=== PATIENT | female | born 1955 | race Caucasian/White ===

== ENCOUNTER 2020-08-27 08:43 | Emergency (ER) | payer OTHER, MEDICAID, SELFPAY ==
[2020-08-27 08:50] VITALS: BP 179/102; PULSE 95; RESP 16; TEMP 36.2; O2SAT 98
--- NOTE | 2020-08-27 09:32 | ED.LOWEXIN ---
HPI - Extremity Injury (Lower) General Chief Complaint: Extremity Injury, Lower Stated Complaint: right leg swollen and hard to walk Time Seen by Provider: 08/27/20 09:03 Source: patient Mode of arrival: Ambulatory Limitations: no limitations History of Present Illness HPI Narrative: This is a 64-year-old female who comes to the emergency department with complaint of right knee pain. Patient states that she developed swelling in the last 24 hours of the right and kind of upper thigh region. She has noticed some warmth but no erythema or other skin changes. She does not recall any specific trauma or injury. She has not had similar symptoms in the past. She does have an abscess developed on her right calf that has been slowly healing. Patient denies any numbness, tingling or weakness. She has increased pain with movement but is able to ambulate although it is uncomfortable. Patient denies any swelling of her lower leg. She has not appreciated any erythema, cyanosis or pallor. She has been afebrile. She denies chest pain or shortness of breath, no nausea, no vomiting, no new GI or urinary symptoms. Patient denies any regular daily medications. She has had multiple orthopedic surgeries in the past as well as a uterine ablation. She has never had any interventions on her lower extremity. 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 She states she has not injected into that extremity. Related Data Previous Rx's Medication Instructions Recorded clindamycin HCl 300 mg PO Q6H 10 Days #40 cap 08/27/20 clindamycin HCl 300 mg PO Q6H 10 Days #40 cap 08/27/20 Allergies Allergy/AdvReac Type Severity Reaction Status Date / Time Penicillins [PENICILLINS] Allergy Unknown HIVES Unverified 08/20/17 12:36 Review of Systems Review of Systems ROS Unobtainable: All systems reviewed & are unremarkable except as noted in HPI and below Patient History Social History Smoking Status: Never smoker Smoking Status: Never smoker Substance Use Type: does not use Exam Narrative Exam Narrative: GENERAL: Alert and oriented x three, thin female in mild distress. Patient is able to ambulate with mild discomfort. HEENT: Head normocephalic, atraumatic, EOMI, pupils reactive, face symmetric, moist mucous membranes NECK: Supple, full range of motion CARDIOVASCULAR: Regular rate and rhythm without murmurs, rubs or gallops. RESPIRATORY: Breath sounds equal bilaterally, no wheezes rales or rhonchi. ABDOMEN: Soft, nontender. Normoactive bowel sounds all 4 quadrants. No guarding or rebound, rigidity, no mass EXTREMITIES: Normal range of motion, no clubbing. Patient has some mild swelling of the right knee and superiorly to the patella, there is no erythema, pallor or cyanosis. There is some very mild warmth in comparison to the left. Patient does not have any discrete bony tenderness that I can appreciate. She has normal sensation throughout. She is nontender in calf with no swelling appreciated in the calf or foot. Neurovascularly intact. NEUROLOGICAL: Cranial nerves II through XII grossly intact. Moving all extremities SKIN: Warm, dry, no petechiae, no rashes or lesions. Initial Vital Signs Initial Vital Signs: Vital Signs Temperature 97.2 F L 08/27/20 08:50 Pulse Rate 95 H 08/27/20 08:50 Respiratory Rate 16 08/27/20 08:50 Blood Pressure 179/102 H 08/27/20 08:50 Pulse Oximetry 98 08/27/20 08:50 Course Orders Ordered: ED Orders 08/27/20 09:41 US periph venous low extrem rt Stat XR knee RT 3V Stat 08/27/20 10:20 Basic Metabolic Panel Stat C-Reactive Protein Quant Stat Complete Blood Count AUTO DIFF Stat Erythrocyte Sedimentation Rate Stat Procalcitonin Stat Uric Acid Stat 08/27/20 10:30 Blood Culture Stat Discontinued Medications Ketorolac Tromethamine (Ketorolac 60 Mg/2 Ml Vial) 15 mg IV NOW ONE Stop: 08/27/20 09:43 Last Admin: 08/27/20 10:10 Dose: 15 mg Documented by: FELIX Lidocaine/Sodium Bicarbonate (Lido 1%/Sod Bicarb 8.4% (10ml) 10 Ml Syringe) 10 ml INJ NOW ONE Stop: 08/27/20 12:41 Last Admin: 08/27/20 12:50 Dose: 10 ml Documented by: FELIX Reevaluation(s) Reevaluation #2: Discussed with patient initially as she was willing to allow for aspiration of the knee but has become increasingly anxious and at this point is very politely refusing to allow aspiration or incision and drainage. 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 Patient and I discussed that with her various areas of infection on her lower extremities with no clear injection in that location she is potential risk for this. Blood cultures are pending. She does not appear septic overall at this time. Patient defers any aspiration or clean out of the knee but is willing to start some oral antibiotics I was very that this is unlikely to resolve her situation and may slow the course but will not reverse or stop the infection. Time: 13:07 Consultations Consultation #1: Dr. Smith, does not recommend arthrocentesis of the knee itself as this could potentially see need the knee with infection. We discussed that aspiration might be the best course of action at this time as it is a deeper abscess. Vital Signs Vital signs: Vital Signs - 8 hr 08/27/20 13:17 Pulse Rate 84 Respiratory Rate 16 Blood Pressure 165/78 H Pulse Oximetry 97 MDM - Extremity Injury (Lower) Lab Data Attestation: I reviewed the patient's lab results. Result diagrams: 08/27/20 10:20 08/27/20 10:20 Labs: Lab Results 08/27/20 08/27/20 08/27/20 Range/Units 10:20 10:20 10:20 WBC 14.9 H (4.5-11.0) X10^3/uL RBC 4.55 (4.0-5.2) X10^6/uL Hgb 13.2 (12.0-16.0) g/dL Hct 40.5 (36-46) % MCV 89.2 (80-100) fL MCH 29.1 (26-34) PG MCHC 32.7 (30-36) % RDW 14.6 (11.6-14.8) % Plt Count 351 (150-400) X10^3/uL Neut % (Auto) 74.8 (50-75) % Lymph % (Auto) 16.3 L (25-40) % [place] % (Auto) 8.3 (3-14) % Eos % (Auto) 0.2 L (2-4) % Baso % (Auto) 0.4 (0-2) % Neut # (Auto) 15517 H (8407-6803) /uL Lymph # (Auto) 2400 (2078-0710) /uL [place] # (Auto) 1200 H (0-900) /uL Eos # (Auto) 0 (0-450) /uL Baso # (Auto) 100 (0-100) /uL ESR 58 H (0-20) MM/HR Sodium 138 (137-145) mmol/L Potassium 4.1 (3.4-5.1) mmol/L Chloride 103 (98-107) mmol/L Carbon Dioxide 30 (22-32) mmol/L BUN 21 H (7-17) mg/dL Creatinine 0.66 (0.52-1.04) mg/dL Estimated GFR > 60.0 (>60) mL/min BUN/Creatinine Ratio 31.8 H (6-22) Glucose 131 H (80-110) mg/dL Uric Acid 3.9 (2.5-6.2) mg/dL Calcium 9.6 (8.4-10.2) mg/dL C-Reactive Protein 7.7 H (<1.0) mg/dL Procalcitonin 0.07 (<0.5) ng/mL Imaging Data Extremity x-ray #1: Radiologist's Impression: [address] [id number] ReportSigned Patient: Maggie Salas FMR#: [id number]: 7Acct:[id number]/Sex: 64 / FDate of Service: 08/27/20Loc: EDAccession Number: [id number] Procedure: XR knee RT 3V Ordering Provider: Siena Velarde D.O. PROCEDURE: XR KNEE RT 3V INDICATIONS: leg/knee swelling TECHNIQUE: 3 views of the knee were acquired. COMPARISON: None. FINDINGS: Bones: No fractures or dislocations. No suspicious bony lesions. Soft tissues: Moderate to large joint effusion. IMPRESSION: Moderate to large joint effusion without evidence of an acute osseous abnormality. Dictated by: Napoleon Bundy D.O. on 08/27/2020 at 9:06 Approved by: Napoleon Bundy D.O. on 08/27/2020 at 9:14 US - DVT: Radiologist's Impression: [address] [id number] ReportSigned Patient: Maggie Salas FMR#: [id number]: 7Acct:[id number]/Sex: 64 / FDate of Service: 08/27/20Loc: EDAccession Number: [id number] Procedure: XR knee RT 3V Ordering Provider: Siena Velarde D.O. PROCEDURE: XR KNEE RT 3V INDICATIONS: leg/knee swelling TECHNIQUE: 3 views of the knee were acquired. COMPARISON: None. FINDINGS: Bones: No fractures or dislocations. No suspicious bony lesions. Soft tissues: Moderate to large joint effusion. IMPRESSION: Moderate to large joint effusion without evidence of an acute osseous abnormality. Dictated by: Napoleon Bundy D.O. on 08/27/2020 at 9:06 Approved by: Napoleon Bundy D.O. on 08/27/2020 at 9:14 MDM Narrative Medical decision making narrative: This is a 64-year-old female who comes to the emergency department with complaint of right knee leg swelling. Patient has swelling just above her right a little bit over the joint. X-ray shows a joint effusion but ultrasound for DVT was ordered as well. No DVTs noted but she has a 4 by approximately 2 cm fluid collection above the knee in the soft tissue that suspicious for abscess. Patient has a remote history of endocarditis which was treated. She has had some abscess on her other extremity and she continues to use injectable IV drugs. Patient labs are suggestive of infection. This was reviewed with ortho who did not recommend aspiration of the joint itself. Patient I discussed aspirating or incision and drainage of the site. Patient was quite reluctant and ultimately decided to not allow me to do so. We did discuss we can give her oral antibiotics but this is unlikely to fully treat her and she will likely continue to worsen and her risk for osteomyelitis which she has had a past in her clavicle or a septic joint is quite high. Blood cultures are pending. Patient is aware this. Prescription was sent to the pharmacy which patient will start and she was encouraged to return at any time for repeat evaluation and treatment. Discharge Plan Departure Patient Disposition: Left Against Medical Advice Clinical Impression: Joint effusion of knee, Abscess of left leg Activity Restrictions/Additional Instructions: You have a 4cm fluid collection next to your knee that should be drained. As you have selected not to do so here today please return at any time for repeat evaluation and drainage of the abscess or fluid collection next to your knee. You are at high risk of developing an infection within the joint itself and for osteomyelitis Blood cultures are pending, if these are positive you do need to be re-evaluated as there is a high likelihood that you could have infection in the valves of your heart like you did in the past. Take antibiotics until they are completely gone. This may improve your symptoms for a time but is very unlikely to cause the abscess to go away. You may take Tylenol and/or ibuprofen for pain. Use warm compresses to the affected area 4-6 times daily for 20 minutes at a time. Please return for fevers, increasing redness, swelling, pain, new numbness, tingling or other new or concerning symptoms. Prescriptions: New clindamycin HCl 300 mg capsule 300 mg PO Q6H 10 Days Qty: 40 RF: 0 clindamycin HCl 300 mg capsule 300 mg PO Q6H 10 Days Qty: 40 RF: 0 Stand Alone Forms: Against Medical Advice
--- NOTE | 2020-08-27 09:41 | DI.RAD.S_ITS ---
PROCEDURE: XR KNEE RT 3V INDICATIONS: leg/knee swelling TECHNIQUE: 3 views of the knee were acquired. COMPARISON: None. FINDINGS: Bones: No fractures or dislocations. No suspicious bony lesions. Soft tissues: Moderate to large joint effusion. IMPRESSION: Moderate to large joint effusion without evidence of an acute osseous abnormality. Dictated by: Napoleon Bundy D.O. on 08/27/2020 at 9:06 Approved by: Napoleon Bundy D.O. on 08/27/2020 at 9:14
--- NOTE | 2020-08-27 09:41 | DI.US.S_ITS ---
PROCEDURE: US PERIPH VENOUS LOW EXTREM RT INDICATIONS: RIGHT THIGH/KNEE SWELLING/WARMTH TECHNIQUE: Real-time imaging, as well as color and pulse Doppler interrogation, were performed of the lower extremity deep veins from the inguinal ligament to the popliteal fossa. COMPARISON: None. FINDINGS: The common femoral, femoral and popliteal veins are normally compressible, and free of intraluminal thrombus. Color and pulse Doppler demonstrate normal phasic intraluminal flow. There is normal augmentation response to distal compression maneuver. Within the right popliteal fossa is a anechoic fluid collection measuring 2.4 x 3.7 x 0.9 centimeters. Within the right anterior aspect of the knee there is a cystic fluid collection measuring 4.4 x 8.3 x 1.8 centimeters. There is mild increased vascularity of the adjacent soft tissues. IMPRESSION: No evidence of right lower extremity deep venous thrombosis. Small fluid collection within the popliteal fossa. This most commonly represents a Rodriguez's cyst. Fluid collection within the right anterior knee measuring 4.4 x 0.3 x 1.8 centimeters with slightly increased vascularity of the adjacent soft tissues. This is nonspecific in etiology. Recommend correlation for signs of infection at this may be an abscess formation in the correct clinical setting. Dictated by: on 08/27/2020 at 10:15 Approved by: on 08/27/2020 at 10:19
[2020-08-27] MEDS: KETOROLAC 60 MG/2 ML VIAL 15 MG IV (10:10)
--- NOTE | 2020-08-27 10:11 | PC.NURSE ---
IV attempt unsuccessful x 2/ Lab called for draw
--- NOTE | 2020-08-27 10:12 | PC.NURSE ---
pt states Rt knee swelling and pain, appears mildly swollen. H/o IVDU
[2020-08-27 10:46] LABS: Add Manual Diff / Slide Review NO; Basophils Absolute Auto 100 /uL (0-100); Basophils Percent Auto 0.4 % (0-2); Eosinophils Absolute Auto 0 /uL (0-450); Eosinophils Percent Auto 0.2 % (2-4); Hematocrit 40.5 % (36-46); Hemoglobin 13.2 g/dL (12.0-16.0); Lymphocytes Absolute Auto 2400 /uL (1100-4500); Lymphocytes Percent Auto 16.3 % (25-40); Mean Corpuscular HGB Conc 32.7 % (30-36); Mean Corpuscular Hemoglobin 29.1 PG (26-34); Mean Corpuscular Volume 89.2 fL (80-100); Monocytes Absolute Auto 1200 /uL (0-900); Monocytes Percent Auto 8.3 % (3-14); Neutrophils Absolute Auto 11200 /uL (1500-7000); Neutrophils Percent Auto 74.8 % (50-75); Platelet Count 351 X10^3/uL (150-400); Red Blood Cell Count 4.55 X10^6/uL (4.0-5.2); Red Cell Distribution Width 14.6 % (11.6-14.8); White Blood Cell Count 14.9 X10^3/uL (4.5-11.0)
[2020-08-27 10:56] LABS: Uric Acid 3.9 mg/dL (2.5-6.2)
[2020-08-27 10:58] LABS: BUN Creatinine Ratio 31.8 (6-22); Blood Urea Nitrogen 21 mg/dL (7-17); C-Reactive Protein Quant 7.7 mg/dL (<1.0); Calcium 9.6 mg/dL (8.4-10.2); Carbon Dioxide 30 mmol/L (22-32); Chloride 103 mmol/L (98-107); Estimated Glomerular Filt Rate > 60.0 mL/min (>60); Glucose 131 mg/dL (80-110); HEMOLYSIS 24 (0-50); Potassium 4.1 mmol/L (3.4-5.1); Sodium 138 mmol/L (137-145)
[2020-08-27 11:12] LABS: Erythrocyte Sedimentation Rate 58 MM/HR (0-20); Procalcitonin 0.07 ng/mL (<0.5)
[2020-08-27] MEDS: LIDO 1%/SOD BICARB 8.4% (10ML) 10 ML SYRINGE INJ (12:50)
--- NOTE | 2020-08-27 13:02 | PC.NURSE ---
Dr Velarde at bedside with U/S for drainage of R knee effusion. At first when consent given for procedure pt was agreeable and has since changed her mind is refusing procedure.
[2020-08-27 13:17] VITALS: BP 165/78; PULSE 84; RESP 16; O2SAT 97
== END 2020-08-27 13:17 | disposition left against medical advice (07) ==
PROVIDERS: Emergency Provider Emergency Medicine
DX: L02.416 Cutaneous abscess of left lower limb (principal); M25.461 Effusion, right knee
CPT/HCPCS: 36415; 73562; 80048; 84145; 84550; 85025; 85651; 86140; 87040; 93971; 96374; 99284; J1885

== ENCOUNTER 2021-05-16 11:57 | Emergency (ER) | payer OTHER, MEDICAID, SELFPAY ==
[2021-05-16 12:36] VITALS: BP 193/94; PULSE 77; RESP 17; TEMP 36.6; O2SAT 95; BMI 19.5
[2021-05-16 13:33] LABS: COVID19 -Nasal RAPID POSITIVE (Negative)
--- NOTE | 2021-05-16 13:51 | ED_ITS ---
HPI - URI/Sore Throat <RYAN Marie - Last Filed: 05/16/21 20:19> General Chief Complaint: Upper Respiratory Symptoms Stated Complaint: Congestion, SOB, cough- exposure Time Seen by Provider: 05/16/21 13:38 Source: patient Mode of arrival: Ambulatory History of Present Illness HPI Narrative: [age] year old female smoker, unvaccinated for COVID who presents to the emergency department with cough, congestion, loss of appetite, and concern for COVID illness. Patient tested positive while wait in the waiting room and is requesting treatment. Patient denies nausea vomiting, she does endorse loss of appetite but denies any shortness of breath, wheezing, dizziness, chest pain, vomiting or diarrhea. Patient denies having a primary care provider, she denies taking any medications. Patient reports that she has tried [id number] agents but does not express which ones for her symptoms. Patient is frustrated about waiting in the waiting room, requesting a private place. Duration: other (4 days) Description of mucous: clear Related Data Allergies Allergy/AdvReac Type Severity Reaction Status Date / Time Penicillins [PENICILLINS] Allergy Unknown HIVES Unverified 08/20/17 12:36 Review of Systems <RYAN Marie - Last Filed: 05/16/21 20:19> Review of Systems Narrative: General: denies fever, chills Head/Neck: denies headache, neck pain Eyes: denies visual changes, eye pain Cardio: denies chest pain, palpitations Respiratory: denies shortness of breath, endorses cough, congestion, still smoking GI: denies abdominal pain, nausea, vomiting, or diarrhea, endorses loss of appetite : denies dysuria, hematuria MSK: denies joint pain, muscle weakness Skin: denies rash, itching Neuro: denies numbness, tingling Patient History <RYAN Marie - Last Filed: 05/16/21 20:19> Social History Smoking Status: Current some day smoker Smoking Status: Current some day smoker Substance Use Type: does not use Exam <RYAN Marie - Last Filed: 05/16/21 20:19> Narrative Exam Narrative: Independently reviewed vitals signs and nursing notes. General: Awake, alert, nontoxic, no cardiorespiratory distress Head/Neck: Atraumatic, neck full range of motion Eyes: EOMI, conjunctiva normal Nose: nares patent, no rhinorrhea Mouth/Throat: moist mucus membranes, posterior pharynx normal, no oral lesions Cardio: Regular rate and rhythm, no peripheral edema Respiratory: respirations unlabored without wheezing, stridor, or rales. No retractions. GI: Abdomen soft, nontender MSK: Moves all extremities, neurovascularly intact Skin: Normal capillary refill, no rash Neuro: Normal speech and cognition, normal gait Initial Vital Signs Initial Vital Signs: Vital Signs Temperature 97.9 F 05/16/21 12:36 Pulse Rate 77 05/16/21 12:36 Respiratory Rate 17 05/16/21 12:36 Blood Pressure 193/94 H 05/16/21 12:36 Pulse Oximetry 95 05/16/21 12:36 <Sterling Valencia DO - Last Filed: 05/24/21 04:44> Initial Vital Signs Initial Vital Signs: Vital Signs Temperature 97.9 F 05/16/21 12:36 Pulse Rate 77 05/16/21 12:36 Respiratory Rate 17 05/16/21 12:36 Blood Pressure 193/94 H 05/16/21 12:36 Pulse Oximetry 95 05/16/21 12:36 Course <RYAN Marie - Last Filed: 05/16/21 20:19> Orders Ordered: ED Orders 05/16/21 12:41 COVID19 -Nasal swab/Pre-Proc Stat Vital Signs Vital signs: Vital Signs - 8 hr 05/16/21 12:36 05/16/21 15:15 Temperature 97.9 F Pulse Rate 77 88 Respiratory Rate 17 17 Blood Pressure 193/94 H 193/89 H Pulse Oximetry 95 98 <DO Naima Kent Last Filed: 05/24/21 04:44> Orders Ordered: ED Orders 05/16/21 12:41 COVID19 -Nasal swab/Pre-Proc Stat Vital Signs Vital signs: Vital Signs - 8 hr 05/16/21 12:36 05/16/21 15:15 Temperature 97.9 F Pulse Rate 77 88 Respiratory Rate 17 17 Blood Pressure 193/94 H 193/89 H Pulse Oximetry 95 98 MDM - URI/Sore Throat <RYAN Marie - Last Filed: 05/16/21 20:19> Lab Data Labs: Lab Results 05/16/21 Range/Units 12:41 SARS-CoV-2 (PCR) Positive H (Negative) MDM Narrative Medical decision making narrative: 65-year-old female presents to the emergency department requesting COVID testing, she is unvaccinated and a current everyday smoker. Patient tested positive for COVID, she requested treatment for her COVID and it was discussed with her that there is no treatment for COVID. Dr. Theodore was requested to see the patient because she did not want to speak with me any longer. He saw this patient and discussed these things with her as well, she was discharged with understanding, given cautious return precautions if she is getting worse, and told to treat her symptoms with ibuprofen or Tylenol as needed, and to stay hydrated. Patient is appropriate and amenable to discharge home. Vital signs are stable on repeat examination is unremarkable. Patient has been informed of results. Patient has been given strict return to ER precautions for any new or worsening symptoms. Patient understands to follow up closely with outpatient providers as instructed. Patient understands plan and agrees to discharge home. All questions and concerns answered at this time. <Sterling Valencia DO - Last Filed: 05/24/21 04:44> Lab Data Labs: Lab Results 05/16/21 Range/Units 12:41 SARS-CoV-2 (PCR) Positive H (Negative) Discharge Plan Departure Patient Disposition: Home Clinical Impression: COVID-19 Instructions: DI for COVID-19 (Suspected or Confirmed ), Can COVID-19 be prevented? Activity Restrictions/Additional Instructions: *You have been diagnosed with COVID-19. Because today is day 4 of your symptoms, according to the latest CDC guidelines if you do not have a fever tomorrow you may come off quarantine but you are required to wear a mask for at least 5 days or for as long as you still have symptoms. Please go home and quarantine, Flonase may help some of your symptoms, please do not smoke, take ibuprofen or Tylenol as needed for fever, or pain. Please remember to stay hydrated, if you have difficulty breathing, wheezing, or need oxygen therapy please return to the emergency department. Today your oxygen was 95%, this is okay, her heart rate was also normal, your blood pressure was elevated which I think is due to a number of reasons. Please obtain a primary care provider so that you may follow-up with somebody about this and your ongoing health concerns. Please educate yourself on the CDC website about what treatments are available for COVID. Wishing you the best. *What to do: *Please continue to take your regular medications as directed. [ ] New medication prescriptions sent to your pharmacy: [ ] [ ] New medication written as a paper prescription [ x] No new medications given *Please follow up with your primary care provider in 2-3 days, call for an appointment. Let them know you were seen in the Emergency Department and that we ask that you be seen in follow up. We will electronically transmit a record of today's note if your PCP is in our system *If you do not have a primary care provider please contact the [facility] Resource line at [phone]. They will ask some questions about your medical history and help get you set up with a doctor in the community. *Return to Emergency Department if you should have any new, worsening or conc erning symptoms, such as [fever greater than 101F, chills, worsening pain, persistent vomiting or other bothersome symptoms] <Sterling Valencia DO - Last Filed: 05/24/21 04:44> Cosign ED Attending Percyature Attestation: I was immediately available in the department for consultation. This document ation has been reviewed and I agree with assessment and plan. Supervised by Sterling Valencia DO
--- NOTE | 2021-05-16 15:09 | PC.NURSE ---
Pt seen and discharged by ALANA Jo. Pt requesting to see doctor to see her. Pt to room 7. Continues to have easy work of breathing. Very upset that there is no cure for covid and that she will continue to feel poorly. Dr. Valencia reviewed return precautions.
--- NOTE | 2021-05-16 15:12 | PC.NURSE ---
In triage the patient stated she doesn't take bp meds, doesn't want to. pt now states she has never been given bp meds. Dr solis is at bedside currently.
[2021-05-16 15:15] VITALS: BP 193/89; PULSE 88; RESP 17; O2SAT 98
== END 2021-05-16 15:20 | disposition home or self-care (01) ==
PROVIDERS: Emergency Medicine; Emergency Provider Nurse Practitioner Critical Care Medicine
DX: U07.1 COVID-19 (principal); F17.200 Nicotine dependence, unspecified, uncomplicated
CPT/HCPCS: 87635; 99281; 99282; C9803

== ENCOUNTER 2022-10-21 15:55 | Emergency (ER) | payer MEDICARE, SELFPAY ==
[2022-10-21 16:14] VITALS: BP 166/82; PULSE 74; RESP 16; TEMP 36.9; O2SAT 96; BMI 22.4
--- NOTE | 2022-10-21 20:07 | ED_ITS ---
HPI - Recheck/Abnormal Lab/Rx General Chief Complaint: Recheck/Abnormal Lab/Rx Stated Complaint: L sided weakness, thinks stroke Time Seen by Provider: 10/21/22 19:57 Source: patient Mode of arrival: Ambulatory History of Present Illness HPI narrative: Patient is a 67-year-old female who was sent to the emergency department for evaluation of a potential stroke. She states that 2 weeks ago she had an episode where she felt like her left leg was weak. It has been persistent since then. She would no other associated symptoms. Since that time she has used a cane because of a foot drop on that side. She states that she saw a doctor at her methadone clinic who recently started her on blood pressure medicines. That has been within the past 2 weeks and after the left leg weakness. She talked with that doctor about the weakness and he advised that she come to the emergency department for further evaluation but she did not come because she did not want to be evaluated. She was convinced to come today by other friends. She states that she currently is not having any symptoms except for the footdrop in the left leg. At the time of the event 2 weeks ago she was not having chest pain or shortness of breath or headache or any upper extremity discomfort. She states she is never had a stroke in the past. Related Data Allergies Allergy/AdvReac Type Severity Reaction Status Date / Time Penicillins [PENICILLINS] Allergy Unknown HIVES Verified 10/21/22 16:14 Review of Systems Review of Systems ROS Unobtainable: All systems reviewed & are unremarkable except as noted in HPI and below Patient History Social History Smoking Status: Current some day smoker Smoking Status: Current some day smoker Substance Use Type: does not use Exam Initial Vital Signs Initial Vital Signs: Vital Signs Temperature 98.4 F 10/21/22 16:14 Pulse Rate 74 10/21/22 16:14 Respiratory Rate 16 10/21/22 16:14 Blood Pressure 166/82 H 10/21/22 16:14 Pulse Oximetry 96 10/21/22 16:14 Oxygen Delivery Method Room Air 10/21/22 16:14 Const General: cooperative, comfortable, well groomed and No ill appearing HENMT Head: normal to inspection and normocephalic Face and sinus: normal facial exam Mouth: oral mucosae normal Resp Effort & Inspection: normal respiratory effort Auscultation: clear to auscultation bilaterally Cardio Rate: regular rate Rhythm: regular rhythm GI Inspection: normal to inspection and non-distended Palpation: soft and No tender Skin General: no rashes or lesions noted Lesions: no lesions Neuro General: patient alert, patient awake, patient oriented x3 and moves all extremities Cranial Nerves: CN's II-XI intact bilaterally Cognition: normal cognition Speech: speech normal Gait: gait assisted Method: foot drop Sensory Exam: no sensory deficits noted Coordination: [id number]-wc-[id number] test normal Extrem General: normal to inspection and capillary refill normal Course Orders Ordered: ED Orders 10/21/22 20:07 CT angio head and neck Stat 10/21/22 20:08 CT head/brain wo con Stat EKG-12 Lead Stat 10/21/22 20:54 Complete Blood Count AUTO DIFF Stat Comprehensive Metabolic Panel Stat Lipase Stat Troponin & CK Cardiac Panel Stat Vital Signs Vital signs: Vital Signs - 8 hr 10/21/22 22:44 Pulse Rate 69 Respiratory Rate 19 Blood Pressure 193/96 H Pulse Oximetry 98 Oxygen Delivery Method Room Air MDM - Recheck/Abnormal Lab/Rx Lab Data Attestation: I reviewed the patient's lab results. 10/21/22 20:54 10/21/22 20:54 Labs: Lab Results 10/21/22 10/21/22 Range/Units 20:54 20:54 WBC 8.3 (4.5-11.0) X10^3/uL RBC 4.36 (4.0-5.2) X10^6/uL Hgb 12.8 (12.0-16.0) g/dL Hct 38.4 (36-46) % MCV 88.1 (80-100) fL MCH 29.4 (26-34) PG MCHC 33.3 (30-36) % RDW 14.7 (11.6-14.8) % Plt Count 316 (150-400) X10^3/uL Neut % (Auto) 49.8 L (50-75) % Lymph % (Auto) 37.0 (25-40) % [place] % (Auto) 11.1 (3-14) % Eos % (Auto) 1.5 L (2-4) % Baso % (Auto) 0.6 (0-2) % Neut # (Auto) 4100 (1661-1887) /uL Lymph # (Auto) 3100 (7525-0303) /uL [place] # (Auto) 900 (0-900) /uL Eos # (Auto) 100 (0-450) /uL Baso # (Auto) 100 (0-100) /uL Sodium 140 (137-145) mmol/L Potassium 4.1 (3.4-5.1) mmol/L Chloride 101 (98-107) mmol/L Carbon Dioxide 32 (22-32) mmol/L BUN 20 H (7-17) mg/dL Creatinine 1.04 (0.52-1.04) mg/dL Estimated GFR 59 L (>60) mL/min BUN/Creatinine Ratio 19.2 (6-22) Glucose 83 (80-110) mg/dL Calcium 9.2 (8.4-10.2) mg/dL Total Bilirubin 0.5 (0.2-1.3) mg/dL AST 30 (14-36) IU/L ALT 18 (<35) IU/L Alkaline Phosphatase 100 (38-126) U/L Total Creatine Kinase 144 H (30-135) U/L CK-MB (CK-2) TNP CK-MB (CK-2) Rel Index TNP Troponin I < 0.012 (0.01-0.034) ng/mL Total Protein 8.5 H (6.3-8.2) g/dL Albumin 4.4 (3.5-5.0) g/dL Globulin 4.1 (1.7-4.1) g/dL Albumin/Globulin Ratio 1.1 (1.0-2.8) Lipase 70 (23-300) U/L Imaging Data CT scan - head: Radiologist's Impression: PROCEDURE:? CT HEAD/BRAIN WO CON ? INDICATIONS:? L foot drop ? TECHNIQUE:? Noncontrast 4.5 mm thick angled axial sections acquired from the foramen magnum to the vertex, with coronal and sagittal reformats.? For radiation dose reduction, the following was used:? automated exposure control, adjustment of mA and/or kV according to patient size.? ? COMPARISON:? None. ? FINDINGS:? Image quality:? Excellent.? ? CSF spaces:? Basal cisterns are patent.? No extra-axial fluid collections.? There is moderate cerebral volume loss, with resultant ventricular and sulcal prominence.? ? Brain:? No intracranial hemorrhage, mass, or mass effect.? There are subcortical, periventricular and deep white matter hypodensities consistent with moderate chronic small vessel ischemic changes.? There is a small region of carter-white matter junction effacement in the right posterior frontal lobe suggestive of encephalomalacia related to a prior infarct.? There is intracranial internal carotid artery atherosclerosis.? ? Skull and face:? Calvarium and visualized facial bones are intact, without suspicious lesions.? ? Sinuses:? Visualized sinuses and mastoids are clear.? ? IMPRESSION:? ? 1. No definite acute intracranial abnormality. ? 2. 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 Consider further evaluation with MRI if clinical concern persists.? CTA - brain/neck: Radiologist's Impression: PROCEDURE:? CT ANGIO HEAD AND NECK ? INDICATIONS:? L foot drop ? TECHNIQUE:? After the administration of intravenous contrast, 1 mm thick sections acquired from the aortic arch through the [place] of [place].? Post-contrast 4.5 mm thick sections then re-acquired from the foramen magnum to the vertex.? 3-dimensional przlzvz-qvgpriipt-izknuiyfup (MIP) and/or volume rendering reformats were acquired of the central intracranial vasculature and neck separately. For radiation dose reduction, the following was used:? automated exposure control, adjustment of mA and/or kV according to patient size.? ? COMPARISON:? [facility], CT, CT HEAD/BRAIN WO CON, 10/21/2022, 21:42. ? FINDINGS:? Image quality:? Excellent.? ? BRAIN:? CSF spaces:? Basal cisterns are patent.? No extra-axial fluid collections.? Ventricles are normal in size and shape.? ? Brain:? No intracranial hemorrhage, mass, or mass effect.? Carter-white matter interface appears preserved.? No abnormal intracranial enhancement.? ? Skull and face:? Calvarium and facial bones appear intact, without suspicious lesions.? Orbits appear normal.? ? Sinuses:? Sinuses and mastoids are clear.? ? HEAD CT ANGIOGRAPHY:? Anterior circulation:? Intracranial internal carotid arteries are normal in size and appear patent bilaterally.? There is mild atherosclerotic calcification along the cavernous segments of the internal carotid arteries.? The paired anterior cerebral arteries appear patent bilaterally.? The anterior communicating artery also appears patent. The middle cerebral arteries appear patent bilaterally.? No high-grade stenosis, occlusion, or filling defects.? No cerebral aneurysms identified. ? Posterior circulation:? Visualized portions of the vertebral arteries appear patent, and join to form a patent basilar artery.? There is a right dominant vertebrobasilar system.? The posterior cerebral arteries appears patent bilaterally.? No high-grade stenosis, occlusion, or filling defects.? No cerebral aneurysms identified. ? NECK CT ANGIOGRAPHY:? Carotid system:? The great vessels demonstrate a conventional anatomy as they arise from the aortic arch.? The origins of the common carotid arteries appear patent.? The common carotid arteries demonstrate normal caliber and courses.? The bifurcation regions are both widely patent.? The internal carotid arteries demonstrate normal calibers and courses.? ? Posterior circulation:? The origins of the vertebral arteries both appear patent.? There is a right dominant vertebrobasilar system.? The vertebral arteries appear patent and join to form a patent basilar artery. ? Soft tissues:? Visualized neck soft tissues demonstrate heterogeneous enhancement of the thyroid bilaterally without a focal dominant nodule.? The visualized lungs demonstrate moderate to severe centrilobular emphysematous changes. ? Bones:? No suspicious bony lesions.? Visualized cervical spine demonstrates straightening of the cervical lordosis.? There is multilevel degenerative disc disease and facet joint arthropathy.? ? ? IMPRESSION:? ? 1. No high-grade stenosis or occlusion of the central intracranial arteries. ? 2. No high-grade stenosis or occlusion of the head and neck arteries.? ? Any quantitative measurements of stenosis were performed using NASCET criteria.? MDM Narrative Medical decision making narrative: Patient does have a foot drop on her left lower extremity which is requiring her to use a cane. The rest of her neurologic exam is unremarkable. Her labs are unremarkable. Her symptoms started 2 weeks ago. Not a candidate for tPA or interventional. CT scan and CTA of head and neck were ordered however prior to these radiologic studies resulting the patient stated that she would like to be discharged home. I advised the patient that I did not have the results of the scans back. Advised so we potentially could be missing something such as a brain mass, head bleed or potential stroke. Patient expressed understanding of this. She had a GCS of 15. Alert and oriented x3. Not clinically intoxicated and my opinion had capacity make decisions. Her roommate was at bedside for these discussions. Patient stated that she would like to be discharged home and follow-up with her doctor at the methadone clinic. I advised that she contact this provider for follow-up so that they could discuss potential further workup or other medications. She was advised she could return to the emergency department at any point to complete her workup if needed. Discharge Plan Departure Patient Disposition: Left Against Medical Advice Clinical Impression: Foot drop Activity Restrictions/Additional Instructions: Despite not having your workup completed you have opted to leave the emergency department. I recommend that you contact your primary care doctor for a follow- up and feel free to return to the emergency department at any point to continue your evaluation. Stand Alone Forms: Against Medical Advice
--- NOTE | 2022-10-21 20:07 | DI.CT.S_ITS ---
PROCEDURE: CT ANGIO HEAD AND NECK INDICATIONS: L foot drop TECHNIQUE: After the administration of intravenous contrast, 1 mm thick sections acquired from the aortic arch through the [place] of [place]. Post-contrast 4.5 mm thick sections then re-acquired from the foramen magnum to the vertex. 3-dimensional dkyifko-qyadpkypg-vrtmtgcqlj (MIP) and/or volume rendering reformats were acquired of the central intracranial vasculature and neck separately. For radiation dose reduction, the following was used: automated exposure control, adjustment of mA and/or kV according to patient size. COMPARISON: [facility], CT, CT HEAD/BRAIN WO CON, 10/21/2022, 21:42. FINDINGS: Image quality: Excellent. BRAIN: CSF spaces: Basal cisterns are patent. No extra-axial fluid collections. Ventricles are normal in size and shape. Brain: No intracranial hemorrhage, mass, or mass effect. Carter-white matter interface appears preserved. No abnormal intracranial enhancement. Skull and face: Calvarium and facial bones appear intact, without suspicious lesions. Orbits appear normal. Sinuses: Sinuses and mastoids are clear. HEAD CT ANGIOGRAPHY: Anterior circulation: Intracranial internal carotid arteries are normal in size and appear patent bilaterally. There is mild atherosclerotic calcification along the cavernous segments of the internal carotid arteries. The paired anterior cerebral arteries appear patent bilaterally. The anterior communicating artery also appears patent. The middle cerebral arteries appear patent bilaterally. No high-grade stenosis, occlusion, or filling defects. No cerebral aneurysms identified. Posterior circulation: Visualized portions of the vertebral arteries appear patent, and join to form a patent basilar artery. There is a right dominant vertebrobasilar system. The posterior cerebral arteries appears patent bilaterally. No high-grade stenosis, occlusion, or filling defects. No cerebral aneurysms identified. NECK CT ANGIOGRAPHY: Carotid system: The great vessels demonstrate a conventional anatomy as they arise from the aortic arch. The origins of the common carotid arteries appear patent. The common carotid arteries demonstrate normal caliber and courses. The bifurcation regions are both widely patent. The internal carotid arteries demonstrate normal calibers and courses. Posterior circulation: The origins of the vertebral arteries both appear patent. There is a right dominant vertebrobasilar system. The vertebral arteries appear patent and join to form a patent basilar artery. Soft tissues: Visualized neck soft tissues demonstrate heterogeneous enhancement of the thyroid bilaterally without a focal dominant nodule. The visualized lungs demonstrate moderate to severe centrilobular emphysematous changes. Bones: No suspicious bony lesions. Visualized cervical spine demonstrates straightening of the cervical lordosis. There is multilevel degenerative disc disease and facet joint arthropathy. IMPRESSION: 1. No high-grade stenosis or occlusion of the central intracranial arteries. 2. No high-grade stenosis or occlusion of the head and neck arteries. Any quantitative measurements of stenosis were performed using NASCET criteria. Dictated by: Ignacio Mathew M.D. on 10/21/2022 at 23:17 Approved by: Ignacio Mathew M.D. on 10/21/2022 at 23:20
--- NOTE | 2022-10-21 20:08 | DI.CT.S_ITS ---
PROCEDURE: CT HEAD/BRAIN WO CON INDICATIONS: L foot drop TECHNIQUE: Noncontrast 4.5 mm thick angled axial sections acquired from the foramen magnum to the vertex, with coronal and sagittal reformats. For radiation dose reduction, the following was used: automated exposure control, adjustment of mA and/or kV according to patient size. COMPARISON: None. FINDINGS: Image quality: Excellent. CSF spaces: Basal cisterns are patent. No extra-axial fluid collections. There is moderate cerebral volume loss, with resultant ventricular and sulcal prominence. Brain: No intracranial hemorrhage, mass, or mass effect. There are subcortical, periventricular and deep white matter hypodensities consistent with moderate chronic small vessel ischemic changes. There is a small region of [place]-white matter junction effacement in the right posterior frontal lobe suggestive of encephalomalacia related to a prior infarct. There is intracranial internal carotid artery atherosclerosis. Skull and face: Calvarium and visualized facial bones are intact, without suspicious lesions. Sinuses: Visualized sinuses and mastoids are clear. IMPRESSION: 1. No definite acute intracranial abnormality. 2. 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 Consider further evaluation with MRI if clinical concern persists. Dictated by: Ignacio Mathew M.D. on 10/21/2022 at 23:15 Approved by: Ignacio Mathew M.D. on 10/21/2022 at 23:16
[2022-10-21 21:07] LABS: Add Manual Diff / Slide Review NO; Basophils Absolute Auto 100 /uL (0-100); Basophils Percent Auto 0.6 % (0-2); Eosinophils Absolute Auto 100 /uL (0-450); Eosinophils Percent Auto 1.5 % (2-4); Hematocrit 38.4 % (36-46); Hemoglobin 12.8 g/dL (12.0-16.0); Lymphocytes Absolute Auto 3100 /uL (1100-4500); Mean Corpuscular HGB Conc 33.3 % (30-36); Mean Corpuscular Hemoglobin 29.4 PG (26-34); Mean Corpuscular Volume 88.1 fL (80-100); Monocytes Absolute Auto 900 /uL (0-900); Monocytes Percent Auto 11.1 % (3-14); Neutrophils Absolute Auto 4100 /uL (1500-7000); Neutrophils Percent Auto 49.8 % (50-75); Platelet Count 316 X10^3/uL (150-400); Red Blood Cell Count 4.36 X10^6/uL (4.0-5.2); Red Cell Distribution Width 14.7 % (11.6-14.8); White Blood Cell Count 8.3 X10^3/uL (4.5-11.0)
[2022-10-21 21:14] LABS: Alanine Aminotransferase 18 IU/L (<35); Albumin 4.4 g/dL (3.5-5.0); Albumin Globulin Ratio 1.1 (1.0-2.8); Alkaline Phosphatase 100 U/L (38-126); Aspartate Aminotransferase 30 IU/L (14-36); BUN Creatinine Ratio 19.2 (6-22); Bilirubin Total 0.5 mg/dL (0.2-1.3); Blood Urea Nitrogen 20 mg/dL (7-17); Calcium 9.2 mg/dL (8.4-10.2); Carbon Dioxide 32 mmol/L (22-32); Chloride 101 mmol/L (98-107); Creatine Kinase 144 U/L (30-135); Estimated Glomerular Filt Rate 59 mL/min (>60); Globulin 4.1 g/dL (1.7-4.1); Glucose 83 mg/dL (80-110); HEMOLYSIS < 15 (0-50); Lipase 70 U/L (23-300); Potassium 4.1 mmol/L (3.4-5.1); Sodium 140 mmol/L (137-145); Total Protein 8.5 g/dL (6.3-8.2)
[2022-10-21 21:25] LABS: Troponin I < 0.012 ng/mL (0.01-0.034)
[2022-10-21 22:44] VITALS: BP 193/96; PULSE 69; RESP 19; O2SAT 98
== END 2022-10-21 22:48 | disposition left against medical advice (07) ==
PROVIDERS: Emergency Provider Emergency Medicine
DX: M21.372 Foot drop, left foot (principal); R07.9 Chest pain, unspecified
CPT/HCPCS: 36415; 70450; 70496; 70498; 80053; 82550; 83690; 84484; 85025; 93005; 99283; 99284; Q9967

== ENCOUNTER 2022-11-02 13:16 | Inpatient (IN) | payer MEDICARE, SELFPAY ==
[2022-11-02] VITALS (25 sets, daily range): BP systolic 164–220; BP diastolic 85–108; PULSE 67–80; RESP 14–23; TEMP 35.9–36.8; O2SAT 91–99; BMI 21.6
--- NOTE | 2022-11-02 13:33 | DI.RAD.S_ITS ---
PROCEDURE: XR HIP W PEL IF DONE LT 2V INDICATIONS: fall, left hip pain TECHNIQUE: To views of the hip were acquired. COMPARISON: None. FINDINGS: Bones: Left femoral neck fracture with angulation and displacement. No fracture of the pelvic ring is identified. Soft tissues: No suspicious soft tissue calcifications or masses. IMPRESSION: Left femoral neck fracture. Dictated by: Adrai Wharton M.D. on 11/02/2022 at 13:36 Approved by: Adria Wharton M.D. on 11/02/2022 at 13:37
--- NOTE | 2022-11-02 13:33 | DI.RAD.S_ITS ---
PROCEDURE: XR CHEST 1V INDICATIONS: chest pain TECHNIQUE: One view of the chest was acquired. COMPARISON: [facility], , CHEST 1 VIEW, 07/24/2015, 16:15. FINDINGS: Surgical changes and devices: None. Lungs and pleura: Lungs are clear. No pleural effusions or pneumothorax. Mediastinum: Mediastinal contours appear normal. Heart size is normal. Bones and chest wall: No suspicious bony lesions. Overlying soft tissues appear unremarkable. IMPRESSION: No acute cardiopulmonary abnormality. Dictated by: Adria Wharton M.D. on 11/02/2022 at 13:37 Approved by: Adria Wharton M.D. on 11/02/2022 at 13:38
[2022-11-02 13:45] LABS: Add Manual Diff / Slide Review NO; Basophils Absolute Auto 0 /uL (0-100); Basophils Percent Auto 0.3 % (0-2); Eosinophils Absolute Auto 0 /uL (0-450); Eosinophils Percent Auto 0.2 % (2-4); Hematocrit 44.7 % (36-46); Hemoglobin 14.9 g/dL (12.0-16.0); Lymphocytes Absolute Auto 1300 /uL (1100-4500); Lymphocytes Percent Auto 10.7 % (25-40); Mean Corpuscular HGB Conc 33.3 % (30-36); Mean Corpuscular Hemoglobin 29.3 PG (26-34); Monocytes Absolute Auto 700 /uL (0-900); Monocytes Percent Auto 5.7 % (3-14); Neutrophils Absolute Auto 10500 /uL (1500-7000); Neutrophils Percent Auto 83.1 % (50-75); Platelet Count 426 X10^3/uL (150-400); Red Blood Cell Count 5.08 X10^6/uL (4.0-5.2); Red Cell Distribution Width 14.7 % (11.6-14.8); White Blood Cell Count 12.6 X10^3/uL (4.5-11.0)
[2022-11-02 13:48] LABS: Prothrombin Time 11.2 SECONDS (10.1-12.7)
[2022-11-02 13:50] LABS: PTT Partial Thromboplastin Tim 33 SECONDS (26-36)
[2022-11-02 14:00] LABS: Alanine Aminotransferase 30 IU/L (<35); Albumin 4.9 g/dL (3.5-5.0); Alkaline Phosphatase 166 U/L (38-126); Aspartate Aminotransferase 44 IU/L (14-36); BUN Creatinine Ratio 15.5 (6-22); Bilirubin Total 0.5 mg/dL (0.2-1.3); Blood Urea Nitrogen 16 mg/dL (7-17); Carbon Dioxide 29 mmol/L (22-32); Chloride 100 mmol/L (98-107); Creatine Kinase 332 U/L (30-135); Estimated Glomerular Filt Rate 60 mL/min (>60); Globulin 5.1 g/dL (1.7-4.1); Glucose 105 mg/dL (80-110); HEMOLYSIS < 15 (0-50); Lipase 100 U/L (23-300); Magnesium 2.3 mg/dL (1.6-2.3); Potassium 3.9 mmol/L (3.4-5.1); Sodium 139 mmol/L (137-145)
[2022-11-02] MEDS: ONDANSETRON 4 MG/2 ML INJ IV (14:02)
[2022-11-02] MEDS: MORPHINE 4 MG/ML INJ IV ×2 (14:02→15:00)
[2022-11-02 14:09] LABS: NT-proBNP (BNP-Adult 18+) 130 pg/mL (<125)
[2022-11-02 14:12] LABS: Troponin I < 0.012 ng/mL (0.01-0.034)
--- NOTE | 2022-11-02 14:57 | ED_ITS ---
HPI - Dizziness General Chief Complaint: Syncope Stated Complaint: dizzy/fall/hip pain Time Seen by Provider: 11/02/22 14:57 Source: patient and EMS Mode of arrival: EMS History of Present Illness HPI Narrative: This is a 67-year-old female with history of hypertension, on methadone daily for prior substance abuse who presents with ground level fall and left hip pain. Patient states she was in bed her roommate asked her for his help with the task she got up lost her balance and fell onto her left hip. She has pain in the left hip she denies head injury, no neck or back pain, no chest pain or shortness of breath, no nausea, no vomiting, no issues with bowel movements or urination. Patient denies numbness, tingling or weakness. She states this happened about 10 30 this she thought it might pass so she waited to call for assistance. Patient does take methadone 138 mg daily she states she has not had her dose today from [facility] while at, she takes blood pressure medication. No prior strokes or heart attacks. She is had prior neck and arm surgery. Allergic to penicillin. Does use tobacco, no alcohol or illicit. She states her primary care is through [facility] while at clinic. Related Data Home Medications Medication Instructions Recorded Confirmed fluticasone furoate 100 2 inh inhalation DAILY 11/02/22 11/02/22 mcg-vilanterol 25 mcg/dose inhalation powder (Breo Ellipta) lisinopril 10 mg tablet 10 mg PO BEDTIME 11/02/22 11/02/22 methadone 10 mg/mL oral concentrate 130 mg PO DAILY 11/02/22 11/02/22 Allergies Allergy/AdvReac Type Severity Reaction Status Date / Time Penicillins [PENICILLINS] Allergy Unknown HIVES Verified 11/02/22 13:31 Review of Systems Review of Systems ROS Unobtainable: All systems reviewed & are unremarkable except as noted in HPI and below Patient History Medical History Hypertension Methadone maintenance therapy patient Social History Smoking Status: Current every day smoker Smoking Status: Current every day smoker tobacco type: cigarettes alcohol intake frequency: 0-2 drinks per day Substance Use Type: former substance user Exam Narrative Exam Narrative: GEN: Female appearing older than her stated age, alert and oriented x 3, patient appears to be in mild distress. HEENT: Atraumatic, pupils are equal round reactive to light, extraocular movements are intact, nares are clear, there is no conjunctival pallor. Throat is clear without any exudates, erythema, tonsillar enlargement or uvular deviation HEART: Regular rate and rhythm without murmur, clicks, rubs. LUNGS:Lungs clear to auscultation, no wheezes, rales, crackles, chest moves symmetrically ABD:bowel sounds normal, soft, non-tender, no guarding, rebound, rigidity, no masses noted, no hepatosplenomegaly :No CVA tenderness MSCL: Patient has full range of motion upper extremities, no pain in the right lower extremity but patient has pain at the left hip. Any pain with movement of the leg. No obvious deformity but holds leg flexed. She has 2+ pulses bilateral lower extremities. Patient does have some edema bilateral lower extremities equal which he states has been present for some time. NEURO:CN 2-12 intact, sensation normal. SKIN: No rash, no erythema or other skin changes. Initial Vital Signs Initial Vital Signs: Vital Signs Temperature 97.9 F 11/02/22 13:20 Pulse Rate 70 11/02/22 13:20 Respiratory Rate 16 11/02/22 13:20 Blood Pressure 220/108 H 11/02/22 13:20 Pulse Oximetry 99 11/02/22 13:20 Oxygen Delivery Method Room Air 11/02/22 13:20 Course Orders Ordered: ED Orders 11/02/22 13:30 BNP [NT-proBNP (BNP-Adult 18+)] Stat Complete Blood Count AUTO DIFF Stat Comprehensive Metabolic Panel Stat Lipase Stat Magnesium Stat PTT Partial Thromboplastin Benjamin Stat Prothrombin Time INR Stat Troponin & CK Cardiac Panel Stat 11/02/22 13:33 XR chest 1V Stat XR hip w pel if done LT 2V Stat 11/02/22 13:50 EKG-12 Lead Stat 11/02/22 15:13 XR pelvis 1-2V Stat Acetaminophen (Acetaminophen 325 Mg Tablet) 650 mg PO Q6H PRN PRN Reason: Fever/Mild Pain (1-3) Hydromorphone HCl (Hydromorphone 2 Mg Inj) 2 mg IV Q3H PRN PRN Reason: Pain, Severe (7-10) Last Admin: 11/02/22 18:36 Dose: 2 mg Documented By: ISREAL Sodium Chloride (Normal Saline 0.9%) 1,000 mls @ 100 mls/hr IV CONT LA Stop: 11/03/22 04:29 Last Infusion: 11/02/22 18:34 Dose: 100 mls/hr Documented By: Infusion: 11/02/22 17:31 Dose: 0 mls/hr Documented By: Admin: 11/02/22 16:47 Dose: 100 mls/hr Documented By: GAURAV Lisinopril (Lisinopril 10 Mg Tablet) 10 mg PO BEDTIME LA Melatonin (Melatonin 3 Mg Tablet) 6 mg PO BEDTIME PRN PRN Reason: Insomnia Methadone HCl (Methadone 10 Mg Tablet) 130 mg PO DAILY LA Naloxone HCl (Naloxone 0.4 Mg/Ml Vial) 0.2 mg IV Q2MIN PRN PRN Reason: Opiate Reversal Oxycodone HCl (Oxycodone Ir 10 Mg Tablet) 10 mg PO Q3HR PRN PRN Reason: Pain, Severe (7-10) Polyethylene Glycol (Polyethylene Glycol 3350 17 Gm Powd.Pack) 17 gm PO DAILY PRN PRN Reason: Constipation Prochlorperazine (Prochlorperazine 10 Mg/2 Ml Vial) 10 mg IV Q6HR PRN PRN Reason: Nausea Sennosides (Sennosides 8.6 Mg Tablet) 8.6 mg PO BID PRN PRN Reason: Constipation Discontinued Medications Hydromorphone HCl (Hydromorphone 0.5 Mg Inj) 0.5 mg IV Q3H PRN PRN Reason: Pain, Severe (7-10) Morphine Sulfate (Morphine 4 Mg/Ml Inj) 4 mg IV NOW ONE Stop: 11/02/22 13:37 Last Admin: 11/02/22 14:02 Dose: 4 mg Documented By: GAURAV Morphine Sulfate (Morphine 4 Mg/Ml Inj) 4 mg IV NOW ONE Stop: 11/02/22 14:58 Last Admin: 11/02/22 15:00 Dose: 4 mg Documented By: GAURAV Ondansetron HCl (Ondansetron 4 Mg/2 Ml Inj) 4 mg IV NOW ONE Stop: 11/02/22 13:37 Last Admin: 11/02/22 14:02 Dose: 4 mg Documented By: GAURAV Vital Signs Vital signs: Vital Signs - 8 hr 11/02/22 13:20 11/02/22 13:21 11/02/22 13:22 Temperature 97.9 F Pulse Rate 70 67 Respiratory Rate 16 Blood Pressure 220/108 H 220/108 H Pulse Oximetry 99 91 Oxygen Delivery Method Room Air 11/02/22 13:30 11/02/22 14:00 11/02/22 14:30 Temperature Pulse Rate 72 69 69 Respiratory Rate 16 17 Blood Pressure Pulse Oximetry 98 95 94 Oxygen Delivery Method 11/02/22 15:00 11/02/22 15:06 11/02/22 15:06 Temperature Pulse Rate 75 77 Respiratory Rate 21 23 Blood Pressure 210/104 H Pulse Oximetry 92 96 Oxygen Delivery Method 11/02/22 15:30 11/02/22 15:37 11/02/22 15:37 Temperature Pulse Rate 75 73 Respiratory Rate 19 18 Blood Pressure 200/100 H Pulse Oximetry 94 95 Oxygen Delivery Method 11/02/22 15:44 11/02/22 15:44 11/02/22 15:50 Temperature Pulse Rate 78 75 Respiratory Rate 16 19 Blood Pressure 201/101 H Pulse Oximetry 94 93 Oxygen Delivery Method 11/02/22 15:50 11/02/22 16:00 11/02/22 16:00 Temperature Pulse Rate 73 Respiratory Rate 17 Blood Pressure 196/97 H 190/97 H Pulse Oximetry 91 Oxygen Delivery Method MDM - Dizziness Lab Data 11/02/22 13:30 11/02/22 13:30 Labs: Lab Results 11/02/22 11/02/22 11/02/22 Range/Units 13:30 13:30 13:30 WBC 12.6 H (4.5-11.0) X10^3/uL RBC 5.08 (4.0-5.2) X10^6/uL Hgb 14.9 (12.0-16.0) g/dL Hct 44.7 (36-46) % MCV 88.0 (80-100) fL MCH 29.3 (26-34) PG MCHC 33.3 (30-36) % RDW 14.7 (11.6-14.8) % Plt Count 426 H (150-400) X10^3/uL Neut % (Auto) 83.1 H (50-75) % Lymph % (Auto) 10.7 L (25-40) % [place] % (Auto) 5.7 (3-14) % Eos % (Auto) 0.2 L (2-4) % Baso % (Auto) 0.3 (0-2) % Neut # (Auto) 46924 H (8615-3802) /uL Lymph # (Auto) 1300 (9717-6044) /uL [place] # (Auto) 700 (0-900) /uL Eos # (Auto) 0 (0-450) /uL Baso # (Auto) 0 (0-100) /uL PT 11.2 (10.1-12.7) SECONDS INR 1.0 (0.9-1.3) APTT 33 (26-36) SECONDS Sodium 139 (137-145) mmol/L Potassium 3.9 (3.4-5.1) mmol/L Chloride 100 (98-107) mmol/L Carbon Dioxide 29 (22-32) mmol/L BUN 16 (7-17) mg/dL Creatinine 1.03 (0.52-1.04) mg/dL Estimated GFR 60 (>60) mL/min BUN/Creatinine Ratio 15.5 (6-22) Glucose 105 (80-110) mg/dL Calcium 10.0 (8.4-10.2) mg/dL Magnesium 2.3 (1.6-2.3) mg/dL Total Bilirubin 0.5 (0.2-1.3) mg/dL AST 44 H (14-36) IU/L ALT 30 (<35) IU/L Alkaline Phosphatase 166 H (38-126) U/L Total Creatine Kinase 332 H (30-135) U/L CK-MB (CK-2) TNP CK-MB (CK-2) Rel Index TNP Troponin I < 0.012 (0.01-0.034) ng/mL NT-Pro-B Natriuret Pep (<125) pg/mL Total Protein 10.0 H (6.3-8.2) g/dL Albumin 4.9 (3.5-5.0) g/dL Globulin 5.1 H (1.7-4.1) g/dL Albumin/Globulin Ratio 1.0 (1.0-2.8) Lipase 100 (23-300) U/L / Range/Units 13:30 WBC (4.5-11.0) X10^3/uL RBC (4.0-5.2) X10^6/uL Hgb (12.0-16.0) g/dL Hct (36-46) % MCV (80-100) fL MCH (26-34) PG MCHC (30-36) % RDW (11.6-14.8) % Plt Count (150-400) X10^3/uL Neut % (Auto) (50-75) % Lymph % (Auto) (25-40) % [place] % (Auto) (3-14) % Eos % (Auto) (2-4) % Baso % (Auto) (0-2) % Neut # (Auto) (0418-1366) /uL Lymph # (Auto) (6251-3858) /uL [place] # (Auto) (0-900) /uL Eos # (Auto) (0-450) /uL Baso # (Auto) (0-100) /uL PT (10.1-12.7) SECONDS INR (0.9-1.3) APTT (26-36) SECONDS Sodium (137-145) mmol/L Potassium (3.4-5.1) mmol/L Chloride (98-107) mmol/L Carbon Dioxide (22-32) mmol/L BUN (7-17) mg/dL Creatinine (0.52-1.04) mg/dL Estimated GFR (>60) mL/min BUN/Creatinine Ratio (6-22) Glucose (80-110) mg/dL Calcium (8.4-10.2) mg/dL Magnesium (1.6-2.3) mg/dL Total Bilirubin (0.2-1.3) mg/dL AST (14-36) IU/L ALT (<35) IU/L Alkaline Phosphatase (38-126) U/L Total Creatine Kinase (30-135) U/L CK-MB (CK-2) CK-MB (CK-2) Rel Index Troponin I (0.01-0.034) ng/mL NT-Pro-B Natriuret Pep 130 H (<125) pg/mL Total Protein (6.3-8.2) g/dL Albumin (3.5-5.0) g/dL Globulin (1.7-4.1) g/dL Albumin/Globulin Ratio (1.0-2.8) Lipase (23-300) U/L Imaging Data Chest x-ray: Radiologist's Impression: Close Hip X-Ray (Signed) Adria Wharton - 11/02/22 Chest X-Ray (Signed) Adria Wharton - 11/02/[address] (Signed) MathewIgnacio jacobson - 10/21/22 Head/Neck CTA (Signed) Priyanka,Ignacio - 10/21/22 Vascular Ultrasound (Signed) Bundy,Napoleon - 08/27/20 Knee X-Ray (Signed) Bundy,Napoleon - 08/27/20 Launch?[place] [address] XRay Report Signed Patient: Maggie Salas MR#: [id number] : 1955 Acct:[id number] Age/Sex: 67 / F Date of Service: 11/02/22 Loc: ED Accession Number: [id number] ?? Procedure: XR chest 1V Ordering Provider: Siena Velarde D.O. PROCEDURE:? XR CHEST 1V ? INDICATIONS:? chest pain ? TECHNIQUE:? One view of the chest was acquired.? ? COMPARISON:? [facility], , CHEST 1 VIEW, 07/24/2015, 16:15. ? FINDINGS:? ? Surgical changes and devices:? None.? ? Lungs and pleura:? Lungs are clear.? No pleural effusions or pneumothorax.? ? Mediastinum:? Mediastinal contours appear normal.? Heart size is normal.? ? Bones and chest wall:? No suspicious bony lesions.? Overlying soft tissues appear unremarkable.? ? IMPRESSION:? No acute cardiopulmonary abnormality. ? ? ? Dictated by: Adria Wharton M.D. on 11/02/2022 at 13:37 ? ? Approved by: Adria Wharton M.D. on 11/02/2022 at 13:38?? pelvic xray: Radiologist's Impression: Close Hip X-Ray (Signed) Adria Wharton - 11/02/22 Chest X-Ray (Signed) Adria Wharton - 11/02/[address] (Signed) MathewIgnacio jacobson - 10/21/22 Head/Neck CTA (Signed) Ignacio Mathew 10/21/22 Vascular Ultrasound (Signed) Bundy,[place] 08/27/20 Knee X-Ray (Signed) Bundy,[place] 08/27/20 Launch?[address] [address] XRay Report Signed Patient: Maggie Salas MR#: [id number] : 1955 Acct:[id number] Age/Sex: 67 / F Date of Service: 11/02/22 Loc: ED Accession Number: [id number] ?? Procedure: XR hip w pel if done LT 2V Ordering Provider: Siena Velarde D.O. PROCEDURE:? XR HIP W PEL IF DONE LT 2V ? INDICATIONS:? fall, left hip pain ? TECHNIQUE:? To views of the hip were acquired.? ? COMPARISON:? None. ? FINDINGS:? ? Bones:? Left femoral neck fracture with angulation and displacement.? No fracture of the pelvic ring is identified. ? Soft tissues:? No suspicious soft tissue calcifications or masses.? ? IMPRESSION:? Left femoral neck fracture. ? ? Dictated by: Adria Wharton M.D. on 11/02/2022 at 13:36 ? ? Approved by: Adria Wharton M.D. on 11/02/2022 at 13:37?? ECG Data Attestation: I personally reviewed and interpreted this ECG as follows: Interpretation: Sinus rhythm rate of 71 AK 188 QRS [address] QTC 452[address] No acute ST changes appreciated. MDM Narrative Medical decision making narrative: This is a 67-year-old female with history of hypertension and on methadone daily. Patient states she got out of bed lost her balance and fell and has had significant left hip pain since then. She is neurovascularly intact but does h ave a left femoral neck fracture. Patient labs show white count of, platelets 426 normal hemoglobin, coags and chemistry negative other than AST of 44, alk- phos of 166 total CK 332. Negative trope total protein is elevated globulin 5.1. Patient's chest x-ray shows no acute change. Left femoral neck fracture on x-ray no obvious pelvic fracture. Spoke with Dr. Goodwin, orthopedic surgery asks for repeat AP view we did note patient was quite rotated when they did that view. Was reshot for better AP view and shared with Dr. Goodwin. Dr. Goodwin saw patient in department. Discussed plan for admission to hospitalist for medical management. Dr. Ferguson: accepts for admission. Discharge Plan Departure Patient Disposition: Admitted As Inpatient Clinical Impression: Fracture of femoral neck, closed Admit Date/Time: 11/02/22 16:09 Admit Provider: Rodrick Ferguson
--- NOTE | 2022-11-02 15:13 | DI.RAD.S_ITS ---
PROCEDURE: XR PELVIS 1-2V INDICATIONS: repeat xray. TECHNIQUE: 1 view(s) of the pelvis acquired. COMPARISON: None. FINDINGS: Bones: AP view of the pelvis demonstrates a left subcapital femoral neck fracture. There is angulation and mild displacement. Soft tissues: Visualized bowel gas pattern is normal. No suspicious soft tissue calcifications. IMPRESSION: Angulated and mildly displaced left subcapital hip fracture. Dictated by: Adria Wharton M.D. on 11/02/2022 at 14:31 Approved by: Adria Wharton M.D. on 11/02/2022 at 14:32
--- NOTE | 2022-11-02 16:25 | PM.HP.1 ---
History of Present Illness History of Present Illness Date Patient Seen: 11/02/22 Time Patient Seen: 16:52 Chief complaint: dizzy/fall/hip pain Narrative: Maggie Salas is a 67yo F with PMH of frequent falls, prior substance use on methadone daily and HTN who presents with GLF resulting in L hip fracture. Patient says she has been falling alot lately, roughly 4x in the past month. She feels like her balance is very off lately. She got up early this morning and was barely awake when she went into the kitchen, lost her balance and fell on her side. She had immediate pain in the hip but she continued to walk on it hoping it would get better but it did not. She says she has been walking with a cane lately due to her falls. In the ED patient found to have left femoral neck fracture. She is currently in 8/10 pain as she did not take her morning dose of methadone. She denies any dizziness, lightheadedness, syncope preceding the fall and no current CP, NV, abd pain or diarrhea. PFSH Medical History Hypertension Methadone maintenance therapy patient Social History Smoking Status: Current every day smoker Meds Home Medications and Allergies Home Medications Medication Instructions Recorded Confirmed Type fluticasone furoate 100 2 inh inhalation DAILY 11/02/22 11/02/22 History mcg-vilanterol 25 mcg/dose inhalation powder (Breo Ellipta) lisinopril 10 mg tablet 10 mg PO BEDTIME 11/02/22 11/02/22 History methadone 10 mg/mL oral concentrate 130 mg PO DAILY 11/02/22 11/02/22 History Allergies Allergy/AdvReac Type Severity Reaction Status Date / Time Penicillins [PENICILLINS] Allergy Unknown HIVES Verified 11/02/22 13:31 Review of Systems Review of Systems Narrative: All other systems reviewed with the patient and are negative unless otherwise stated. Exam Vital Signs (past 8 hours): - 11/02/22 13:20 11/02/22 13:21 11/02/22 13:22 Temperature 97.9 F Pulse Rate 70 67 Respiratory Rate 16 Blood Pressure 220/108 H 220/108 H Pulse Oximetry 99 91 Oxygen Delivery Method Room Air 11/02/22 13:30 11/02/22 14:00 11/02/22 14:30 Temperature Pulse Rate 72 69 69 Respiratory Rate 16 17 Blood Pressure Pulse Oximetry 98 95 94 Oxygen Delivery Method 11/02/22 15:00 11/02/22 15:06 11/02/22 15:06 Temperature Pulse Rate 75 77 Respiratory Rate 21 23 Blood Pressure 210/104 H Pulse Oximetry 92 96 Oxygen Delivery Method 11/02/22 15:30 11/02/22 15:37 11/02/22 15:37 Temperature Pulse Rate 75 73 Respiratory Rate 19 18 Blood Pressure 200/100 H Pulse Oximetry 94 95 Oxygen Delivery Method 11/02/22 15:44 11/02/22 15:44 11/02/22 15:50 Temperature Pulse Rate 78 75 Respiratory Rate 16 19 Blood Pressure 201/101 H Pulse Oximetry 94 93 Oxygen Delivery Method 11/02/22 15:50 11/02/22 16:00 11/02/22 16:00 Temperature Pulse Rate 73 Respiratory Rate 17 Blood Pressure 196/97 H 190/97 H Pulse Oximetry 91 Oxygen Delivery Method 11/02/22 16:10 11/02/22 16:10 Temperature Pulse Rate 75 Respiratory Rate 17 Blood Pressure 182/92 H Pulse Oximetry 92 Oxygen Delivery Method Oxygen Delivery Method Room Air Narrative Exam Narrative: GEN: mod distress due to pain, appears older than stated age HEENT: moist mucous membranes, PERRL NECK: trachea midline, no JVD CV: regular rate and rhythm, no murmurs PULM: clear bilaterally ABD: soft, nontender, nondistended, no organomegaly EXT: left leg externally rotated, pain to palpation of left hip NEURO: awake, alert, oriented, no focal deficits Objective Labs 11/02/22 13:30 11/02/22 13:30 Labs: Laboratory Results - last 24 hr 11/02/22 11/02/22 11/02/22 13:30 13:30 13:30 WBC 12.6 H RBC 5.08 Hgb 14.9 Hct 44.7 MCV 88.0 MCH 29.3 MCHC 33.3 RDW 14.7 Plt Count 426 H Neut % (Auto) 83.1 H Lymph % (Auto) 10.7 L [place] % (Auto) 5.7 Eos % (Auto) 0.2 L Baso % (Auto) 0.3 Neut # (Auto) 95820 H Lymph # (Auto) 1300 [place] # (Auto) 700 Eos # (Auto) 0 Baso # (Auto) 0 PT 11.2 INR 1.0 APTT 33 Sodium 139 Potassium 3.9 Chloride 100 Carbon Dioxide 29 BUN 16 Creatinine 1.03 Estimated GFR 60 BUN/Creatinine Ratio 15.5 Glucose 105 Calcium 10.0 Magnesium 2.3 Total Bilirubin 0.5 AST 44 H ALT 30 Alkaline Phosphatase 166 H Total Creatine Kinase 332 H CK-MB (CK-2) TNP CK-MB (CK-2) Rel Index TNP Troponin I < 0.012 NT-Pro-B Natriuret Pep Total Protein 10.0 H Albumin 4.9 Globulin 5.1 H Albumin/Globulin Ratio 1.0 Lipase 100 11/02/22 13:30 WBC RBC Hgb Hct MCV MCH MCHC RDW Plt Count Neut % (Auto) Lymph % (Auto) [place] % (Auto) Eos % (Auto) Baso % (Auto) Neut # (Auto) Lymph # (Auto) [place] # (Auto) Eos # (Auto) Baso # (Auto) PT INR APTT Sodium Potassium Chloride Carbon Dioxide BUN Creatinine Estimated GFR BUN/Creatinine Ratio Glucose Calcium Magnesium Total Bilirubin AST ALT Alkaline Phosphatase Total Creatine Kinase CK-MB (CK-2) CK-MB (CK-2) Rel Index Troponin I NT-Pro-B Natriuret Pep 130 H Total Protein Albumin Globulin Albumin/Globulin Ratio Lipase Assessment & Plan Assessment & Plan narrative: # L femoral neck fracture -sustained after GLF from losing balance , likely has underlying osteoporosis given fall at ground level -hip XR showed angulated and displaced femoral neck fracture -ortho consulted -NPO at midnight -oxy and dilaudid PRN for pain, methadone to start in AM -will likely need SNF following hip repair given frequent falls # leukocytosis -WBC 12.6 -CXR negative -monitor for infection -check UA # h/o substance abuse on daily methadone -continue methadone 130mg daily -QTc 452 in ED # HTN -continue lisinopril Code status is Full code. DVT prophylaxis with lovenox following surgery. Proxy is friend Kiran. I have reviewed home meds and used all available resources to reconcile the home meds. This patient will be admitted as inpatient and will require greater than 2 midnights of hospital time to treat left hip fracture.
[2022-11-02] MEDS: SODIUM CHLORIDE 0.9% 1,000 ML 100 ML IV (16:47)
--- NOTE | 2022-11-02 17:28 | P.CONS_ITS ---
History of Present Illness Consult details Date Patient Seen: 11/02/22 Time Patient Seen: 17:28 Chief complaint: dizzy/fall/hip pain Reason for consult: left hip pain Requesting provider: Siena Velarde Narrative: Ms. Salas is a 67 yo F who fell from standing and landed on her left hip. She has pain and has been unable to walk since the fall. She was taken to the ER by ambulence and x-ray showed hip fx and ortho service was consulted. Patient was seen in the ER. Meds Home Medications and Allergies Home Medications Medication Instructions Recorded Confirmed Type fluticasone furoate 100 2 inh inhalation DAILY 11/02/22 11/02/22 History mcg-vilanterol 25 mcg/dose inhalation powder (Breo Ellipta) lisinopril 10 mg tablet 10 mg PO BEDTIME 11/02/22 11/02/22 History methadone 10 mg/mL oral concentrate 130 mg PO DAILY 11/02/22 11/02/22 History Allergies Allergy/AdvReac Type Severity Reaction Status Date / Time Penicillins [PENICILLINS] Allergy Unknown HIVES Verified 11/02/22 13:31 Review of Systems Review of Systems ROS: Yes All systems reviewed with the patient and are negative except as otherwise documented Exam Vital Signs (past 8 hours): - 11/02/22 13:20 11/02/22 13:21 11/02/22 13:22 Temperature 97.9 F Pulse Rate 70 67 Respiratory Rate 16 Blood Pressure 220/108 H 220/108 H Pulse Oximetry 99 91 Oxygen Delivery Method Room Air 11/02/22 13:30 11/02/22 14:00 11/02/22 14:30 Temperature Pulse Rate 72 69 69 Respiratory Rate 16 17 Blood Pressure Pulse Oximetry 98 95 94 Oxygen Delivery Method 11/02/22 15:00 11/02/22 15:06 11/02/22 15:06 Temperature Pulse Rate 75 77 Respiratory Rate 21 23 Blood Pressure 210/104 H Pulse Oximetry 92 96 Oxygen Delivery Method 11/02/22 15:30 11/02/22 15:37 11/02/22 15:37 Temperature Pulse Rate 75 73 Respiratory Rate 19 18 Blood Pressure 200/100 H Pulse Oximetry 94 95 Oxygen Delivery Method 11/02/22 15:44 11/02/22 15:44 11/02/22 15:50 Temperature Pulse Rate 78 75 Respiratory Rate 16 19 Blood Pressure 201/101 H Pulse Oximetry 94 93 Oxygen Delivery Method 11/02/22 15:50 11/02/22 16:00 11/02/22 16:00 Temperature Pulse Rate 73 Respiratory Rate 17 Blood Pressure 196/97 H 190/97 H Pulse Oximetry 91 Oxygen Delivery Method 11/02/22 16:10 11/02/22 16:10 11/02/22 16:20 Temperature Pulse Rate 75 73 Respiratory Rate 17 14 Blood Pressure 182/92 H Pulse Oximetry 92 93 Oxygen Delivery Method 11/02/22 16:20 11/02/22 16:30 11/02/22 16:30 Temperature Pulse Rate 74 Respiratory Rate 17 Blood Pressure 181/97 H 180/96 H Pulse Oximetry 91 Oxygen Delivery Method 11/02/22 16:40 11/02/22 16:40 11/02/22 16:50 Temperature Pulse Rate 79 Respiratory Rate 18 Blood Pressure 188/102 H 174/92 H Pulse Oximetry 94 Oxygen Delivery Method 11/02/22 16:50 11/02/22 17:00 11/02/22 17:00 Temperature Pulse Rate 76 76 Respiratory Rate 19 18 Blood Pressure 173/90 H Pulse Oximetry 91 93 Oxygen Delivery Method 11/02/22 17:10 11/02/22 17:10 11/02/22 17:20 Temperature Pulse Rate 80 78 Respiratory Rate 20 19 Blood Pressure 164/85 H Pulse Oximetry 92 93 Oxygen Delivery Method 11/02/22 17:20 Temperature Pulse Rate Respiratory Rate Blood Pressure 170/89 H Pulse Oximetry Oxygen Delivery Method Oxygen Delivery Method Room Air Extrem Other: left leg internally rotated, neurovascularly intact. Skin intact. Objective Labs 11/02/22 13:30 11/02/22 13:30 Labs: Laboratory Results - last 24 hr 11/02/22 11/02/22 11/02/22 13:30 13:30 13:30 WBC 12.6 H RBC 5.08 Hgb 14.9 Hct 44.7 MCV 88.0 MCH 29.3 MCHC 33.3 RDW 14.7 Plt Count 426 H Neut % (Auto) 83.1 H Lymph % (Auto) 10.[address] [place] % (Auto) 5.7 Eos % (Auto) 0.2 L Baso % (Auto) 0.3 Neut # (Auto) 30680 H Lymph # (Auto) [address] [place] # (Auto) 700 Eos # (Auto) 0 Baso # (Auto) 0 PT 11.2 INR 1.0 APTT 33 Sodium 139 Potassium 3.9 Chloride 100 Carbon Dioxide 29 BUN 16 Creatinine 1.03 Estimated GFR 60 BUN/Creatinine Ratio 15.5 Glucose 105 Calcium 10.0 Magnesium 2.3 Total Bilirubin 0.5 AST 44 H ALT 30 Alkaline Phosphatase 166 H Total Creatine Kinase 332 H CK-MB (CK-2) TNP CK-MB (CK-2) Rel Index TNP Troponin I < 0.012 NT-Pro-B Natriuret Pep Total Protein 10.0 H Albumin 4.9 Globulin 5.1 H Albumin/Globulin Ratio 1.0 Lipase 100 11/02/22 13:30 WBC RBC Hgb Hct MCV MCH MCHC RDW Plt Count Neut % (Auto) Lymph % (Auto) [place] % (Auto) Eos % (Auto) Baso % (Auto) Neut # (Auto) Lymph # (Auto) [place] # (Auto) Eos # (Auto) Baso # (Auto) PT INR APTT Sodium Potassium Chloride Carbon Dioxide BUN Creatinine Estimated GFR BUN/Creatinine Ratio Glucose Calcium Magnesium Total Bilirubin AST ALT Alkaline Phosphatase Total Creatine Kinase CK-MB (CK-2) CK-MB (CK-2) Rel Index Troponin I NT-Pro-B Natriuret Pep 130 H Total Protein Albumin Globulin Albumin/Globulin Ratio Lipase PFSH Medical History Hypertension Methadone maintenance therapy patient Tobacco & Substance Use Smoking Status: Current every day smoker Assessment & Plan Assessment & Plan narrative: 67 yo F with displaced fermoal neck fracture. I discussed treatment options with the patient. Risks and benefits of surgery was discussed. Patient understands and would like to proceed with surgery. Patient is scheduled for left hip hemiarthroplasty with Dr. Teague tomorrow. Patient understands and agrees with treatment plan.
[2022-11-02] MEDS: HYDROMORPHONE 2 MG INJ IV ×3 (18:36→23:52)
[2022-11-02] MEDS: ACETAMINOPHEN 325 MG TABLET 650 MG PO (20:21)
[2022-11-02] MEDS: OXYCODONE IR 10 MG TABLET PO ×2 (20:21→23:52)
[2022-11-02] MEDS: lisinopriL 10 MG TABLET PO (20:24)
[2022-11-02] MEDS: MELATONIN 3 MG TABLET 6 MG PO (20:26)
[2022-11-02] MEDS: PROCHLORPERAZINE 10 MG/2 ML VIAL IV (20:34)
[2022-11-03] VITALS (18 sets, daily range): BP systolic 138–195; BP diastolic 72–119; PULSE 9–94; RESP 13–22; TEMP 35.6–36.6; O2SAT 90–97; BMI 21.6
--- NOTE | 2022-11-03 | DI.RAD.S_ITS ---
PROCEDURE: XR PELVIS 1-2V INDICATIONS: POST-OP TECHNIQUE: 1 view of the lower pelvis acquired. COMPARISON: [facility], , XR PELVIS 1-2V, 11/03/2022, 16:26. FINDINGS: Bones: Patient is status post left hip arthroplasty, with hardware components in expected positions. The hip joint appears congruent. The visualized bony structures appear intact. Soft tissues: Overlying postoperative changes are noted. No suspicious soft tissue densities. IMPRESSION: Postoperative changes of total left hip replacement. Dictated by: Adria Wharton M.D. on 11/03/2022 at 17:27 Approved by: Adria Wharton M.D. on 11/03/2022 at 17:27
[2022-11-03] MEDS: HYDROMORPHONE 2 MG INJ IV ×4 (04:10→18:02)
[2022-11-03 07:10] LABS: Add Manual Diff / Slide Review NO; Basophils Absolute Auto 100 /uL (0-100); Basophils Percent Auto 0.7 % (0-2); Eosinophils Absolute Auto 0 /uL (0-450); Eosinophils Percent Auto 0.5 % (2-4); Hematocrit 40.7 % (36-46); Hemoglobin 13.6 g/dL (12.0-16.0); Lymphocytes Absolute Auto 1600 /uL (1100-4500); Lymphocytes Percent Auto 19.2 % (25-40); Mean Corpuscular HGB Conc 33.4 % (30-36); Mean Corpuscular Hemoglobin 29.7 PG (26-34); Mean Corpuscular Volume 88.8 fL (80-100); Monocytes Absolute Auto 700 /uL (0-900); Monocytes Percent Auto 8.4 % (3-14); Neutrophils Absolute Auto 5800 /uL (1500-7000); Neutrophils Percent Auto 71.2 % (50-75); Red Blood Cell Count 4.58 X10^6/uL (4.0-5.2); Red Cell Distribution Width 14.7 % (11.6-14.8); White Blood Cell Count 8.1 X10^3/uL (4.5-11.0)
[2022-11-03 07:18] LABS: BUN Creatinine Ratio 15.1 (6-22); Blood Urea Nitrogen 13 mg/dL (7-17); Calcium 8.8 mg/dL (8.4-10.2); Carbon Dioxide 24 mmol/L (22-32); Chloride 104 mmol/L (98-107); Estimated Glomerular Filt Rate > 60 mL/min (>60); Glucose 101 mg/dL (80-110); HEMOLYSIS < 15 (0-50); Potassium 3.9 mmol/L (3.4-5.1); Sodium 135 mmol/L (137-145)
[2022-11-03 07:26] LABS: Platelet Count 151 X10^3/uL (150-400)
--- NOTE | 2022-11-03 08:50 | P.PN_ITS ---
Exam Vital Signs (past 8 hours): - 11/03/22 05:04 Temperature 96.9 F L Pulse Rate 64 Respiratory Rate 22 Blood Pressure 141/72 H Pulse Oximetry 91 Oxygen Flow Rate 0 Oxygen Delivery Method Room Air Oxygen Flow Rate 0 Objective Labs 11/03/22 06:30 11/03/22 06:30 Labs: Laboratory Results - last 24 hr 11/02/22 11/02/22 11/02/22 13:30 13:30 13:30 WBC 12.6 H RBC 5.08 Hgb 14.9 Hct 44.7 MCV 88.0 MCH 29.3 MCHC 33.3 RDW 14.7 Plt Count 426 H Neut % (Auto) 83.1 H Lymph % (Auto) 10.7 L [place] % (Auto) 5.7 Eos % (Auto) 0.2 L Baso % (Auto) 0.3 Neut # (Auto) 06323 H Lymph # (Auto) 1300 [place] # (Auto) 700 Eos # (Auto) 0 Baso # (Auto) 0 PT 11.2 INR 1.0 APTT 33 Sodium 139 Potassium 3.9 Chloride 100 Carbon Dioxide 29 BUN 16 Creatinine 1.03 Estimated GFR 60 BUN/Creatinine Ratio 15.5 Glucose 105 Calcium 10.0 Magnesium 2.3 Total Bilirubin 0.5 AST 44 H ALT 30 Alkaline Phosphatase 166 H Total Creatine Kinase 332 H CK-MB (CK-2) TNP CK-MB (CK-2) Rel Index TNP Troponin I < 0.012 NT-Pro-B Natriuret Pep Total Protein 10.0 H Albumin 4.9 Globulin 5.1 H Albumin/Globulin Ratio 1.0 Lipase 100 11/02/22 11/03/22 11/03/22 13:30 06:30 06:30 WBC 8.1 RBC 4.58 Hgb 13.6 Hct 40.7 MCV 88.8 MCH 29.7 MCHC 33.4 RDW 14.7 Plt Count 151 Neut % (Auto) 71.2 Lymph % (Auto) 19.2 L [place] % (Auto) 8.4 Eos % (Auto) 0.5 L Baso % (Auto) 0.7 Neut # (Auto) 5800 Lymph # (Auto) 1600 [place] # (Auto) 700 Eos # (Auto) 0 Baso # (Auto) 100 PT INR APTT Sodium 135 L Potassium 3.9 Chloride 104 Carbon Dioxide 24 BUN 13 Creatinine 0.86 Estimated GFR > 60 BUN/Creatinine Ratio 15.1 Glucose 101 Calcium 8.8 Magnesium Total Bilirubin AST ALT Alkaline Phosphatase Total Creatine Kinase CK-MB (CK-2) CK-MB (CK-2) Rel Index Troponin I NT-Pro-B Natriuret Pep 130 H Total Protein Albumin Globulin Albumin/Globulin Ratio Lipase PFSH Medical History Hypertension Methadone maintenance therapy patient Social History household members: friend(s) Smoking Status: Current every day smoker alcohol intake: former Assessment & Plan Assessment & Plan narrative: Patient is comfortably resting in bed. LLE is well perfused, no s/s of DVT. Patient is scheduled for left hip hemiarthroplasty for displaced femoral neck fx. Patient has been NPO for preparation of surgery.
--- NOTE | 2022-11-03 09:10 | PM.PN.1 ---
Subjective Subjective Interval history: Main complaint is pain. Was able to have her methadone dose this morning due to surgery not plan to early afternoon. Does have a added hydromorphone dose on a as needed basis. Exam Vital Signs (past 8 hours): - 11/03/22 05:04 Temperature 96.9 F L Pulse Rate 64 Respiratory Rate 22 Blood Pressure 141/72 H Pulse Oximetry 91 Oxygen Flow Rate 0 Oxygen Delivery Method Room Air Oxygen Flow Rate 0 Narrative Exam Narrative: GEN: mod distress due to pain but no medical compromise HEENT: moist mucous membranes, PERRL NECK: trachea midline, no JVD CV: regular rate and rhythm, no murmurs PULM: clear bilaterally ABD: soft, nontender, nondistended, no organomegaly EXT: pain to palpation of left hip NEURO: awake, alert, oriented, no focal deficits Objective Labs 11/03/22 06:30 11/03/22 06:30 Labs: Laboratory Results - last 24 hr 11/02/22 11/02/22 11/02/22 13:30 13:30 13:30 WBC 12.6 H RBC 5.08 Hgb 14.9 Hct 44.7 MCV 88.0 MCH 29.3 MCHC 33.3 RDW 14.7 Plt Count 426 H Neut % (Auto) 83.1 H Lymph % (Auto) 10.7 L [place] % (Auto) 5.7 Eos % (Auto) 0.2 L Baso % (Auto) 0.3 Neut # (Auto) 72220 H Lymph # (Auto) 1300 [place] # (Auto) 700 Eos # (Auto) 0 Baso # (Auto) 0 PT 11.2 INR 1.0 APTT 33 Sodium 139 Potassium 3.9 Chloride 100 Carbon Dioxide 29 BUN 16 Creatinine 1.03 Estimated GFR 60 BUN/Creatinine Ratio 15.5 Glucose 105 Calcium 10.0 Magnesium 2.3 Total Bilirubin 0.5 AST 44 H ALT 30 Alkaline Phosphatase 166 H Total Creatine Kinase 332 H CK-MB (CK-2) TNP CK-MB (CK-2) Rel Index TNP Troponin I < 0.012 NT-Pro-B Natriuret Pep Total Protein 10.0 H Albumin 4.9 Globulin 5.1 H Albumin/Globulin Ratio 1.0 Lipase 100 11/02/22 11/03/22 11/03/22 13:30 06:30 06:30 WBC 8.1 RBC 4.58 Hgb 13.6 Hct 40.7 MCV 88.8 MCH 29.7 MCHC 33.4 RDW 14.7 Plt Count 151 Neut % (Auto) 71.2 Lymph % (Auto) 19.2 L [place] % (Auto) 8.4 Eos % (Auto) 0.5 L Baso % (Auto) 0.7 Neut # (Auto) 5800 Lymph # (Auto) 1600 [place] # (Auto) 700 Eos # (Auto) 0 Baso # (Auto) 100 PT INR APTT Sodium 135 L Potassium 3.9 Chloride 104 Carbon Dioxide 24 BUN 13 Creatinine 0.86 Estimated GFR > 60 BUN/Creatinine Ratio 15.1 Glucose 101 Calcium 8.8 Magnesium Total Bilirubin AST ALT Alkaline Phosphatase Total Creatine Kinase CK-MB (CK-2) CK-MB (CK-2) Rel Index Troponin I NT-Pro-B Natriuret Pep 130 H Total Protein Albumin Globulin Albumin/Globulin Ratio Lipase PFSH Medical History Hypertension Methadone maintenance therapy patient Social History household members: friend(s) Smoking Status: Current every day smoker alcohol intake: former Assessment & Plan Assessment & Plan narrative: # L femoral neck fracture -pending surgery later today -sustained after GLF from losing balance , likely has underlying osteoporosis -hip XR showed angulated and displaced femoral neck fracture -ortho planning surgery today -NPO currently -oxy and dilaudid PRN for pain, methadone to start in AM -will likely need SNF following hip repair given frequent falls # leukocytosis -WBC 12.6 initially, now normal -CXR negative -monitor for infection -check UA, no sample as of yet # h/o substance abuse on daily methadone -continue methadone 130mg daily -QTc 452 in ED # HTN -continue lisinopril, slightly elevated at 150 today, likely secondary to pain Follow clinically and labs. Code status is Full code. DVT prophylaxis with lovenox following surgery. Proxy is friend Kiran.
[2022-11-03] MEDS: OXYCODONE IR 10 MG TABLET PO ×2 (10:04→22:55)
[2022-11-03] MEDS: ACETAMINOPHEN 325 MG TABLET 650 MG PO ×2 (10:05→22:55)
--- NOTE | 2022-11-03 11:51 | CM.DANOTE ---
Initial Discharge Assessment Note: Case reviewed, met with patient. Introduced self and role. Payer: Medicare and self pay PCP: She states she uses Dr Steven at [facility]. 67 year old with frequent falls. She had GLF fall and fractured femoral neck. Prior substance abuse. Currently goes to [facility] for daily methadone. She will undergo a hemiarthroplasty today with Dr King this afternoon. Patient lives in [place] in a motor home with her friend Kiran. Spoke with her regarding will need a SNF Rehab on discharge and patient does not want to go to a SNF, she states. Explained the benefits and need for ongoing PT to recover and follow precautions. She is medicated for pain now and is not as alert so let her know we would address this more tomorrow. Sent initial Referral to [facility]. Plan: Most likely SNF Rehab, even though patient states does not want. Follow up with her tomorrow and also [facility]. YAW Discharge Planning/Care Management CM Discharge Assessment Start: 11/03/22 11:48 Freq: Status: Active Protocol: Document 11/03/22 11:48 (Rec: 11/03/22 11:51 [id number]) Discharge Planning Assessment Assigned Change Management Specialist Senait Bourne RN/AISSATOUP Advance Directives? No History Provided By Patient Prior Living Arrangements Mobile home Household Members friend(s) Comment Friend Kiran roommate Type of transporation used prior to Public Transportation admit Comment Also relies on others. Independent with ADL's Yes Is patient alert and oriented? Yes Needs Assistance With Home Chores / Shopping Caregiver for Another No Comment M-F to Methadone clinic with transportation Barriers to Discharge No Transportation Arrangement Kiran can transport. Home with HH vs SNF Referrals Initiated Group Home,Home Health Whiteboard Updated in Patient Room with Yes name and ext. # of Change Management Specialist Review Status In Process Next Review Type Continued Stay Review
[2022-11-03] MEDS: LACTATED RINGERS 1,000 ML 120 ML IV (11:59)
[2022-11-03] MEDS: METHADONE 10 MG TABLET 130 MG PO (12:10)
--- NOTE | 2022-11-03 13:38 | P.HP_ITS ---
History of Present Illness History of Present Illness Date Patient Seen: 11/03/22 Time Patient Seen: 13:38 Date of Onset of Symptoms: 11/02/22 Chief complaint: dizzy/fall/hip pain Narrative: Patient is a 67 old female on chronic methadone presented to [facility] Emergency room after a ground level fall. She had immediate left hip pain and inability to ambulate. States she is had multiple falls in the last few weeks. Was in the emergency room several weeks ago stating was difficulty getting her left to work. Denies any back pain or other extremity pain other than left hip pain currently. No fevers or chills. Hive reaction to penicillins ON LICENSE OF [facility] Medical History Hypertension Methadone maintenance therapy patient Social History household members: friend(s) Smoking Status: Current every day smoker alcohol intake: former Meds Home Medications and Allergies Home Medications Medication Instructions Recorded Confirmed Type fluticasone furoate 100 2 inh inhalation DAILY 11/02/22 11/02/22 History mcg-vilanterol 25 mcg/dose inhalation powder (Breo Ellipta) lisinopril 10 mg tablet 10 mg PO BEDTIME 11/02/22 11/02/22 History methadone 10 mg/mL oral concentrate 130 mg PO DAILY 11/02/22 11/02/22 History Allergies Allergy/AdvReac Type Severity Reaction Status Date / Time Penicillins [PENICILLINS] Allergy Unknown HIVES Verified 11/02/22 13:31 Review of Systems Review of Systems Narrative: Difficulty walking, falls, left hip pain ROS: Yes All systems reviewed with the patient and are negative except as otherwise documented Exam Vital Signs (past 8 hours): - 11/03/22 09:10 11/03/22 12:00 Temperature 96.8 F L 96.1 F L Pulse Rate 66 61 Respiratory Rate 16 16 Blood Pressure 152/78 H 179/87 H Pulse Oximetry 91 94 Oxygen Flow Rate 0 0 Oxygen Delivery Method Room Air Oxygen Flow Rate 0 Narrative Exam Narrative: Alert oriented female in no acute distress. HEENT exam normocephalic atraumatic, frail Heart regular rate and rhythm lungs clear to auscultation bilaterally Musculoskeletal exam. Left lower extremity shortened and externally rotated. Does demonstrate active dorsiflexion plantar flexion and EHL function of the left foot. No calf swelling. Palpable dorsalis pedis pulse. Motor sensory exam around hip joint deferred due to known fracture. No limitations of right lower extremity Objective Imaging AP pelvis and left lateral hip x-ray: My impression: Displaced and shortened left femoral neck fracture Labs 11/03/22 06:30 11/03/22 06:30 Labs: Laboratory Results - last 24 hr 11/02/22 11/02/22 11/02/22 13:30 13:30 13:30 WBC 12.6 H RBC 5.08 Hgb 14.9 Hct 44.7 MCV 88.0 MCH 29.3 MCHC 33.3 RDW 14.7 Plt Count 426 H Neut % (Auto) 83.1 H Lymph % (Auto) 10.7 L [place] % (Auto) 5.7 Eos % (Auto) 0.2 L Baso % (Auto) 0.3 Neut # (Auto) 21916 H Lymph # (Auto) 1300 [place] # (Auto) 700 Eos # (Auto) 0 Baso # (Auto) 0 PT 11.2 INR 1.0 APTT 33 Sodium 139 Potassium 3.9 Chloride 100 Carbon Dioxide 29 BUN 16 Creatinine 1.03 Estimated GFR 60 BUN/Creatinine Ratio 15.5 Glucose 105 Calcium 10.0 Magnesium 2.3 Total Bilirubin 0.5 AST 44 H ALT 30 Alkaline Phosphatase 166 H Total Creatine Kinase 332 H CK-MB (CK-2) TNP CK-MB (CK-2) Rel Index TNP Troponin I < 0.012 NT-Pro-B Natriuret Pep Total Protein 10.0 H Albumin 4.9 Globulin 5.1 H Albumin/Globulin Ratio 1.0 Lipase 100 11/02/22 11/03/22 11/03/22 13:30 06:30 06:30 WBC 8.1 RBC 4.58 Hgb 13.6 Hct 40.7 MCV 88.8 MCH 29.7 MCHC 33.4 RDW 14.7 Plt Count 151 Neut % (Auto) 71.2 Lymph % (Auto) 19.2 L [place] % (Auto) 8.4 Eos % (Auto) 0.5 L Baso % (Auto) 0.7 Neut # (Auto) 5800 Lymph # (Auto) 1600 [place] # (Auto) 700 Eos # (Auto) 0 Baso # (Auto) 100 PT INR APTT Sodium 135 L Potassium 3.9 Chloride 104 Carbon Dioxide 24 BUN 13 Creatinine 0.86 Estimated GFR > 60 BUN/Creatinine Ratio 15.1 Glucose 101 Calcium 8.8 Magnesium Total Bilirubin AST ALT Alkaline Phosphatase Total Creatine Kinase CK-MB (CK-2) CK-MB (CK-2) Rel Index Troponin I NT-Pro-B Natriuret Pep 130 H Total Protein Albumin Globulin Albumin/Globulin Ratio Lipase Assessment & Plan Assessment and plan (1) Osteoporotic hip fracture: Status: Acute Assessment & Plan narrative: Osteoporotic left displaced femoral neck fracture. Patient has medical comorbidities of chronic pain medication, medication use and difficult ambulation. She is a current smoker. She is counseled on the importance of smoking cessation for bone healing general health and blood clot reduction risk. She is indicated for partial hip replacement for her displaced femoral neck fracture. Discussed risks including intraoperative fracture nerve vessel damage leg length discrepancy persistent pain progressive arthritis, dislocation, blood clot, anemia, pneumonia, stroke, heart attack, . Discussed surgery is indicated to allow early mobilization and help avoid the morbidity of prolonged bed rest. High-level medical decision-making decision for inpatient admission and major orthopedic surgery with partial hip replacement for hip fracture. Labs were reviewed. INR is 1.0. White cell count platelet count are appropriate. Renal function appropriate. X-rays were independently interpreted demonstrate displaced left femoral neck fracture. Time Spent With Patient Time with patient: 30 to 49 minutes with 50% spent counseling/coordinating care Quality VTE Deep Vein Thrombosis/Pulmonary Embolism Present on Admission: No
--- NOTE | 2022-11-03 14:10 | DI.RAD.S_ITS ---
PROCEDURE: XR PELVIS 1-2V INDICATIONS: surgery TECHNIQUE: 1 view of the lower pelvis acquired. COMPARISON: [facility], , XR PELVIS 1-2V, 11/02/2022, 15:13. FINDINGS: Bones: Status post left hip replacement. Soft tissues: Overlying postoperative changes are noted. No suspicious soft tissue densities. IMPRESSION: Interval left hip replacement for a left subcapital femoral neck fracture. Dictated by: Adria Wharton M.D. on 11/03/2022 at 16:30 Approved by: Adria Wharton M.D. on 11/03/2022 at 16:31
[2022-11-03] MEDS: LACTATED RINGERS 1,000 ML 42 ML IV ×2 (14:40→16:20)
--- NOTE | 2022-11-03 14:40 | P.OP_ITS ---
Operative Date/Time/Diagnoses Date of procedure: 11/03/22 Time of procedure: 15:20 Pre-op diagnosis: Left displaced femoral neck fracture, left osteoporotic hip fracture Post-op diagnosis: same Procedure & Clinicians Procedure: Hemiarthroplasty for left femoral neck fracture CPT code 66976 Same procedure as scheduled: Yes Indications: Patient is a 67-year-old female with chronic pain and methadone use and had a ground level fall and sustained a displaced left femoral neck fracture. She is been ambulating cane prior to this injury for a least several weeks and states she is had more falls in the last year. Per report the left side has felt weaker lately. She was evaluated for foot drop in the ER several weeks ago but demonstrates dorsiflexion of her ankle and EHL function today. She was found to have a shortened displaced left femoral neck fracture and she was indicated for surgery with endoprosthesis. The risks and benefits of the procedure have been discussed with the patient and given the opportunity to ask questions. The risks of surgery include but are not limited to infection, periprosthetic fracture, progressive arthritis, persistence of pain, damage to nerves and blood vessels, dislocation, nerve injury, DVT, PE, cardiopulmonary complications and . The patient expressed a thorough understanding of the risks and benefits of surgery and has elected to proceed. Consent was signed. During the operation, the services of a physician rn neurosurgical were medically indicated and necessary to provide the exposure of the operative site for the surgical procedure and to maintain the limb in a proper position to carry out the operation safely and efficiently. Without a qualified cardiovascular physician assistant being present this would extended the operative procedure and made the procedure technically more difficult to perform. Surgeon: Lynn King Casting Plug Assembler: Yamilet Knowles Anesthesia Type: General and Local Operative Notes Findings: Displaced left femoral neck fracture Closure Type: primary Specimen(s): none sent Prosthetic devices, grafts, tissues, transplants, or devices: Cisneros and nephew Synergy stem, cemented: 12 Neck +0 STD Head 44mm CoCr Restrictor sm Centralizer 10mm Estimated Blood Loss (mL): 200 Blood products transfused: none Tourniquet time (min): 0 Procedure in detail: Hemiarthroplasty for femoral neck fracture CPT code 73022. Patient was seen in the preoperative area the site of surgery was marked and informed consent confirmed. The patient was brought back to the operating room by the anesthesia team. Patient was positioned supine on the operative table. General anesthetic was administered. Patient was then moved into the lateral position. The hip echo vascular tech positioner pads were then placed. A well-padded axillary roll was placed and the arms were appropriately positioned. The affected lower extremity was prepped and draped from the ankle to the iliac crest with ChloraPrep in the standard fashion sterile drapes were placed. Formal time-out procedure was performed confirming the patient's side and site of surgery, presence of informed consent, administration of appropriate preoperative antibiotics. The patient had an allergy with hives to penicillin but tolerated 2 g of Ancef without any issues today as a preoperative antibiotic. Hip was approached through a standard posterior approach. Dissection was carried down through the skin and subcutaneous tissues sharply through the skin and then with the Bovie through the subcutaneous tissues. The fascia vielka was exposed and opened. Fascia was opened using the Bovie and the gluteus lissette was spread with finger retraction. The Charnley retractor was placed. The inflamed bursa was resected. The piriformis was then identified. A Cobra retractor was placed under the gluteus medius to help expose the external rotators. The piriformis and short external rotators were tagged with a 2 Ethibond and divided of the trochanter. These were then retracted posteriorly to protect sciatic nerve. The femur was then flexed and internally rotated to present the femoral neck and the fracture. A corkscrew and a Toussaint were used to remove the femoral head from the acetabulum. This was measured to fit a 44mm head. Next the femur was presented. A clean-up neck cut was made in a minimal fashion. The trial head size was trialed in the acetabulum. Attention was then turned to the femur. The canal was opened with a box cutting osteotome. This followed by the canal finder and a lateralizing Reamer. Additionally a large curette was used. The tapered reamers were then used up to a size 12. Then broaching was sequentially done up to a size 12. Trial components were placed. The patient was stable in the position of sleep, squatting and could be put through a range of motion with 70? of internal rotation without dislocation. This was felt to be appropriate. An intraop a AP pelvis x-ray was obtained to assess component position. Final components were then selected. The final stem was a size 12. Femoral canal was prepared . The distal small restrictor was placed approximately 1 cm distal to the end of the planned implant. The bone was meticulously cleaned with pulse lavage. Canal was then packed with epi soaked gauze. Two packages of cement were mixed and carefully pressurized into the femoral canal. The femoral co mponent was then placed without difficulty. This was held in place until the cement hardened. The repeat trial reduction showed good range of motion and stability. The final head and neck were then carefully placed. The wound was irrigated. The capsule and muscular flap was repaired with the 2. Ethibond. Next the short external rotators were repaired to the greater trochanter through drill holes in the greater trochanter using the 2.5 drill and a Hewson suture Passer. These were tied with the leg in abduction. The wound was then irrigated again. The fascia vielka was closed with 0 Vicryl and the subcutaneous layer was closed with 2-0 Vicryl and the skin with Stratafix. An Aquacel dressing was placed. A pillow was placed for abduction protection. The drapes removed and the patient was taken to the recovery room in good condition. There no immediate complications from this procedure. All counts were correct. Postoperative AP pelvis x-ray was obtained in the PACU showed appropriate alignment of the cemented hip hemiarthroplasty with no evidence of fracture. Post-operative Condition: stable Disposition: PACU Plan for aftercare: Weightbear as tolerated. pillow between legs while in bed. Posterior hip precautions x6 weeks. Lovenox for DVT prophylaxis x4 weeks. Follow-up in 2 weeks for incision check and x-rays. Calcium and vitamin-D for bone health. Abstain from smoking.
[2022-11-03] MEDS: CEFAZOLIN 2 GM/100 ML PREMIX 100 ML IV ×2 (15:35→22:55)
[2022-11-03] MEDS: TRANEXAMIC ACID 1,000 MG VIAL 1000 MG INJ ×2 (15:55→17:15)
--- NOTE | 2022-11-03 16:10 | SUR.OPER ---
Lateral, head on pillow, gel axillary roll in place, bottom leg bent and secured with cover and tape, upper leg straight and supported by surgeon during procedure Upper arm supported by pillows and secured over bottom arm to padded arm board. Hip Ticket Printer And Tagger system used to secure patient to bed
[2022-11-03] MEDS: BUPIVACAINE LIPOSOME 266 MG/20 ML VIAL INJ (16:48)
[2022-11-03] MEDS: BUPIVACAINE 0.25% (PF) 60 ML, EPINEPHrine 0.3 MG INJ (16:49)
[2022-11-03] MEDS: OXYCODONE IR 5 MG TABLET PO (18:06)
[2022-11-03] MEDS: LORazepam 2 MG/ML INJ 0.5 MG IV (18:12)
[2022-11-03] MEDS: hydrOXYzine pamoate 25 MG CAPSULE 50 MG PO (18:13)
--- NOTE | 2022-11-03 18:32 | SUR.PHASEI ---
Femoral nerve block done at bedside by Anesthesiologist. Patient tolerated well.
--- NOTE | 2022-11-03 18:58 | P.PCN_ITS ---
Peripheral Nerve Block Note Pre-Procedure Reason for block: Attending surgeon request/order for post-op pain management Pre-procedure checklist: Patient examined and chart reviewed, Risks, benefits, alternatives of block discussed, questions answered, Verification of anti- coagulation status, Site confirmed, Timeout performed and Standard ASA monitors applied Consent obtained from: Patient Procedure Date of procedure: 11/03/22 Start Time: 18:15 End Time: 18:30 Performed by: Dunia Martinez Location: PACU Position: Supine Laterality: Left Sterile Technique: Sterile barrier maintained, Sterile gloves, Mask and Chloraprep Equipment Single injection - Needle brand, gauge, length: Pajunk, 21G x 100mm Medications Medications - enter concentration (%) & mL in comment field: Ropivacaine (0.2%, 20 mls + 10mls sterile water) Incremental aspiration prior to injection: Yes Ultrasound Reason for Ultrasound: U/S guidance used for needle placement and U/S used to visualize spread of anesthetic Image printed/saved/archived: Yes Limited exam reveals no abnormal findings: Yes Vital signs VS: - 11/03/22 12:00 11/03/22 14:34 11/03/22 17:48 Temperature 96.1 F L 97.2 F L 97.9 F Pulse Rate 61 66 94 H Respiratory Rate 16 16 18 Blood Pressure 179/87 H 170/88 H 168/91 H Pulse Oximetry 94 93 90 L Oxygen Delivery Method Room Air Nasal Cannula Oxygen Flow Rate 0 3 11/03/22 17:52 11/03/22 17:57 11/03/22 18:02 Temperature Pulse Rate 87 9 L 91 H Respiratory Rate 16 17 Blood Pressure 169/100 H 195/117 H 193/119 H Pulse Oximetry 91 93 Oxygen Delivery Method Nasal Cannula Nasal Cannula Oxygen Flow Rate 3 3 11/03/22 18:34 Temperature Pulse Rate 74 Respiratory Rate 13 Blood Pressure 185/95 H Pulse Oximetry 96 Oxygen Delivery Method Nasal Cannula Oxygen Flow Rate 3 Oxygen Delivery Method Nasal Cannula Oxygen Flow Rate 3 Events Nerve Block Events: Procedure uneventful
[2022-11-03] MEDS: LACTATED RINGERS 1,000 ML 100 ML IV (19:00)
[2022-11-03] MEDS: KETOROLAC 30 MG/ML VIAL IV (20:57)
[2022-11-03] MEDS: lisinopriL 10 MG TABLET PO (20:58)
[2022-11-03] MEDS: SENNOSIDES 8.6 MG TABLET PO (20:58)
[2022-11-03 23:46] LABS: Appearance Urine UA CLEAR; Bilirubin Urine UA NEGATIVE (NEGATIVE); Color Urine UA YELLOW; Glucose Urine UA NEGATIVE (Negative); Ketones Urine UA 1+ (NEGATIVE); Leukocyte Esterase Urine UA TRACE (NEGATIVE); Nitrite Urine UA NEGATIVE (Negative); Occult Blood Urine UA NEGATIVE (Negative); Protein Urine UA NEGATIVE (Negative); pH Urine UA 6.5 (4.5-8.0)
[2022-11-03 23:49] LABS: Bacteria Urine Few (2-10); RBC Urine 0-1/HPF (0-5/HPF); WBC Urine 10-30/HPF (0-5/HPF)
[2022-11-03 23:50] LABS: Culture Indicated Urine Specimen Cultured; Hyaline Casts Urine 5-10/LPF; Squamous Epithelial Cell Urine 0-1 /HPF (0-5/HPF)
[2022-11-04] VITALS (7 sets, daily range): BP systolic 103–137; BP diastolic 56–79; PULSE 63–82; RESP 17–20; TEMP 35.9–36.6; O2SAT 92–97
[2022-11-04] MEDS: KETOROLAC 30 MG/ML VIAL IV ×4 (02:50→21:33)
[2022-11-04] MEDS: ACETAMINOPHEN 325 MG TABLET 650 MG PO ×2 (05:56→15:08)
[2022-11-04] MEDS: OXYCODONE IR 10 MG TABLET PO ×2 (05:56→17:56)
[2022-11-04] MEDS: CEFAZOLIN 2 GM/100 ML PREMIX 100 ML IV (05:56)
[2022-11-04] MEDS: METHADONE 10 MG TABLET 130 MG PO (08:54)
[2022-11-04] MEDS: ENOXAPARIN 40 MG/0.4 ML SYRINGE SUBCUT (08:54)
[2022-11-04] MEDS: hydrOXYzine pamoate 25 MG CAPSULE PO ×2 (08:54→17:57)
--- NOTE | 2022-11-04 09:10 | PM.PN.1 ---
Subjective Subjective Interval history: Postop left hip hemiarthroplasty. Patient states pain less than prior to surgery. Finds it difficult to move left lower extremity. Eager to progress with walking. Exam Vital Signs (past 8 hours): - 11/04/22 04:32 Temperature 97.9 F Pulse Rate 82 Respiratory Rate 20 Blood Pressure 137/77 Pulse Oximetry 97 Oxygen Flow Rate 0 Oxygen Delivery Method Nasal Cannula Oxygen Flow Rate 0 Narrative Exam Narrative: GEN: No acute medical distress. HEENT: moist mucous membranes, PERRL NECK: trachea midline, no JVD CV: regular rate and rhythm, no murmurs PULM: clear bilaterally ABD: soft, nontender, nondistended, no organomegaly EXT:? pain to palpation of left hip, less than prior to surgery, postop dressing in place NEURO: awake, alert, oriented, no focal deficits Objective Labs 11/03/22 06:30 11/03/22 06:30 Labs: Laboratory Results - last 24 hr 11/03/22 23:20 Urine Color Yellow Urine Appearance Clear Urine pH 6.5 Ur Specific Viola 1.020 Urine Protein Negative Urine Glucose (UA) Negative Urine Ketones 1+ H Urine Occult Blood Negative Urine Nitrate Negative Urine Bilirubin Negative Urine Urobilinogen 1.0 Ur Leukocyte Esterase Trace H Urine RBC 0-1/hpf Urine WBC 10-30/hpf H Ur Squamous Epith Cells 0-1 /hpf Urine Bacteria Few (2-10) H Hyaline Casts 5-10/lpf Ur Culture Indicated? Specimen cultured [facility] Medical History Hypertension Methadone maintenance therapy patient Social History household members: friend(s) Smoking Status: Current every day smoker alcohol intake: former Assessment & Plan Assessment & Plan narrative: # L femoral neck fracture -surgery completed yesterday with left hip hemiarthroplasty -sustained after GLF from losing balance , likely has underlying osteoporosis -hip XR showed angulated and displaced femoral neck fracture -oxy and dilaudid PRN for pain, methadone daily AM -will likely need SNF following hip repair given frequent falls # leukocytosis -WBC 12.6 initially on presentation, now normal -CXR negative -monitor for infection -check UA, no sample as of yet # h/o substance abuse on daily methadone -continue methadone 130mg daily -QTc 452 in ED # HTN -continue lisinopril, slightly elevated at 150 yesterday, likely secondary to pain -BP improved today in a patient who has less pain Code status is Full code. DVT prophylaxis with lovenox following surgery. Proxy is friend Kiran. Quality VTE Deep Vein Thrombosis/Pulmonary Embolism Present on Admission: No
--- NOTE | 2022-11-04 10:47 | PT.IIE ---
Current Diagnoses Age-related osteoporosis with current pathological fracture, unspecified femur, initial encounter for fracture (11/02/22) Fracture of unspecified part of neck of left femur, initial encounter for closed fracture (11/02/22) Surgery Performed Operation Date: 11/03/22 15:15 Actual Procedures p Hip Hemiarthroplasty Steve(Left) - Lynn King MD Medical History (Last Reviewed 11/03/22 @ 13:39 by Lynn King MD) Hypertension Methadone maintenance therapy patient Physical Therapy Inpatient Evaluation/Re-Eval M1 PT/OT-IP Prior Functional Status Start: 11/04/22 07:58 Freq: NEEDED Status: Active Protocol: Document 11/04/22 10:47 AW (Rec: 11/04/22 11:47 AW [id number]) Medical Review Prior Functional Status Medical History Reviewed Yes Communication Pt is able to make her needs known. She is sleepy during this visit but states this is her baseline. Mobility and Gait Pt has been using a cane for the past month due to increased falls frequency. She was independently mobile prior to that. She presented to ED with concern for left foot drop on 10/21/22. Activities of Daily Living and IADL's Independent with ADL's. Pt depends on her roommate for transportation, does not drive . Social History Household Members friend(s) Living Arrangements Mobile home Number of Floors (Floors) One Floor Number of Stairs To Enter/Railing? Steep ramp to enter. Home Environment Standard Height Toilet,Walk in Shower Home Equipment Grab Bars Near Toilet,Grab Bars In Shower Additional Social History Comment Pt states her shower has a tall step to enter. She lives with a roommate who may be available to assist as needed. M2 PT-IP Current Condition Start: 11/04/22 07:58 Freq: NEEDED Status: Active Protocol: Document 11/04/22 10:47 AW (Rec: 11/04/22 11:47 AW [id number]) Physical Therapy Current Condition Current Condition Evaluation Date 11/04/22 Treatment Diagnosis L femoral neck fracture s/p hemiarthroplasty with posterior approach Onset Date 11/02/22 M3 PT-IP Subjective Start: 11/04/22 07:58 Freq: NEEDED Status: Active Protocol: Document 11/04/22 10:47 AW (Rec: 11/04/22 11:47 AW [id number]) Subjective Physical Therapy Visit Type Type Initial Evaluation Visit Start Time 10:16 Visit Stop Time 10:47 Total Visit Minutes 31 Notes SPT was present. Co-eval with OT due to low activity tolerance Physical Therapy Visit Comments Patient Comments Pt is willing to mobilize with therapies. Patient Goals Pt would like to avoid SNF if possible but is open to it if recommended. Therapy Pain Assessment Pain When Pain Assessed During Mobility Pain Present Pain Present Pain Reported Location Left hip Intensity 7 Scale Used Numeric (0 - 10) Pain Management Techniques Modification of Treatment,Re- positioning,Timing of Activity with Medications M4 PT-IP Mobility and Gait Start: 11/04/22 07:58 Freq: NEEDED Status: Active Protocol: Document 11/04/22 10:47 AW (Rec: 11/04/22 11:47 AW [id number]) PT-Bed Mobility Assessment Supine to Sit Supine to Sit Minimal Assistance,1 Person Assistance Sit to Supine Sit to Supine Minimal Assistance,1 Person Assistance Scooting Scooting to Edge of Bed Minimal Assistance PT-Transfer Assessment Sit to and From Stand Sit to and from Stand Minimal Assistance,1 Person Assistance,Use of Upper Extremities Equipment Transfer Assistive Device Gait Belt,Front Wheeled Walker Orthotic/Prosthetic Devices or Brace: No Transfers Transfer Destination Chair Transfer Technique Stand Step Pivot Transfer Ability Level of Assist Minimal Assistance,1 Person Assistance,Use of Upper Extremities Comments Mobility Comments Pt was lying in bed as PT, SPT , and OT arrived. She was pleasant and agreeable to therapies but appeared to drift off toward sleep several times. She was easily rousable and directable, following direction well. Educated pt on her weightbearing status, posterior hip precautions, and recommended activity progression. Observation notes pt tends to lie with LLE in internal rotation. Attempted repositioning but pt was unable to maintain corrected position. PT provided min assist and verbal cues for hip precautions for pt to turn toward EOB, min assist to scoot toward feet flat on floor. BP in sitting was 139/ 67 HR 80 SpO2 91% on room air. Pt stood to FWW with min assist. In standing, she had a definite lean toward the left and was unable to correct her stance toward midline. She was able to shift her weight laterally, properly offweighting her LLE with BUE. She transferred to the chair with min assist, moving slowly and dragging her left foot. With cues for hip precautions, she sat and rested before standing once again with min A . She returned to sitting where she was left with call light handy. Gait Assessment Gait Gait Assistance Required: Minimum Assistance,1 Person Assist Distance (Feet) 2 Able to Maintain Weight Bearing Status Yes During Gait Assistive Devices Assistive Device Gait Belt,Front Wheeled Walker Orthotic/Prosthetic Devices or Brace: No Gait Deviations General Gait Pattern Antalgic,Decreased Stride Length,Decreased Feet Clearance,Lateral Trunk Lean Factors Limiting Gait Function Factors Limiting Gait Function Decreased Activity Tolerance, Decreased Strength,Limited Range of Motion,Pain,Poor Balance,Poor Safety Awareness Comments Gait Comments See mobility comments. Pt has persistent left lean and drags her left foot. PT-Balance Assessment Sitting Balance and Reactions Static Sitting Balance Ability Fair Dynamic Sitting Balance Ability Poor Standing Balance and Reactions Static Standing Balance Ability Fair Dynamic Standing Balance Ability Poor Device Used FWW M5 PT-IP Objective Assessments Start: 11/04/22 07:58 Freq: NEEDED Status: Active Protocol: Document 11/04/22 10:47 AW (Rec: 11/04/22 11:47 AW [id number]) Orientation Orientation/Cognition Level of Alertness Lethargic Orientation Name,Day of Week,Place, Situation Safety Awareness Decreased Safety Awareness Comments Not oriented to month or year. Pt presents with challenged attention but is able to be directed easily. Gross Range of Motion Upper Extremity ROM Assessment Within Functional Limits Strength Upper Extremity Strength Assessment Left Impaired Shoulder drift noted Lower Extremity Strength Assessment Bilaterally Impaired Hip L 3-/5 in flexion and rotation Knee L 4/5 ext, 4-/5 flex Ankle L DF 4/5 on single contraction but worse functionally Comments Strength Comments RLE hip grossly 4-/5, knee ext 4+/5 flex 4/5, ankle DF 4+/5. Slight unilateral deficit. Pt 's left hip rests in internal rotation and PT suspects this is due to weakness of hip ER and abduction. Coordination Assessment Gross Coordination Gross Coordination WNL Sensation Assessment Sensation Gross Sensation WNL Other Assessments Other Other Assessments Vision is impaired with pt reporting she wears bifocals at all time. Tracking was challenged. M6 PT-IP Treatment Start: 11/04/22 07:58 Freq: NEEDED Status: Active Protocol: Document 11/04/22 10:47 AW (Rec: 11/04/22 11:47 AW [id number]) Physical Therapy Treatment Education Education Provided Precautions,Weight Bearing Status,Post-Op Packet,Safety M7 PT-IP Assessment and Plan Start: 11/04/22 07:58 Freq: NEEDED Status: Active Protocol: Document 11/04/22 10:47 AW (Rec: 11/04/22 11:47 AW [id number]) PT Summary Assessment and Plan Potential Rehabilitation Potential Good Status of Condition at Evaluation Evolving Summary Impairments Pain,ROM,Strength,Balance,Bed Mobility,Transfers,Gait Assessment Summary Maggie is a 67 yo woman seen for PT evaluation on POD1 following hemiarthroplasty for left subcapital femoral neck fracture sustained during a fall. Pt reports increased falls frequency in the last one month and she has been using a cane to try to prevent falls. Of note, she presented to ED with concern for left foot drop on 10/21/22. 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 Consider further evaluation with MRI if clinical concern persists. Pt left ED without MRI and was to follow up with PCP for any further concerns. No records are available to indicate any follow up. Pt's PMH includes HTN and daily methadone use. CLOF: Pt is found resting in bed, agreeable to PT assessment. After education on weightbearing status and posterior hip precautions, pt mobilized with min assist using FWW. PT noted weakness of the left hip external rotators and abductors leading left leg to rest in internal rotation. Attempts at repositioning were challenging and pt will require positioning assist to maintain precautions. Pt has a left lean in sitting and standing as well weakness of the LLE compared with right side. PT and OT notified hospitalist physician of these deficits. PT recommends 24/7 assist and daily rehab activities such as at SNF for this pt who is at high risk of falls and/or dislocation and would not be safe to manage her home environment. Goals Bed Mobility Goal Standby Assistance Transfer Goal Standby Assistance,Front Wheeled Walker Gait Goal Standby Assistance,Front Wheel Walker Gait Distance 75 Other Goals - up/down 4 steps with railing CGA - able to recall 3/3 hip precautions Days to Meet Goals 10 Frequency of Treatment Frequency Of Treatment Once a Day Treatment Plan Physical Therapy Treatment Plan Bed Mobility Training,Transfer Training,Gait Training, Therapeutic Exercise,Balance Retraining,Post Op Education, Discharge Planning,Hot or Cold Pack,Neuromuscular Re-ed Other Recommendations and Next Treatment positioning for LLE; ther ex; Focus transfers; gait with FWW and chair follow Precautions Posterior Hip Precautions No Hip Flexion > 90 degrees,No Hip Internal Rotation,No Hip Adduction Other Precautions left sided weakness Weight Bearing Status Weight Bearing Status Weight Bear as Tolerated Recommendations To Nursing Amount of Assist Needed 1 Person Assist Discharge Recommendations PT Discharge Recommendations SNF Rehab Transportation Needs at Discharge Wheelchair/Cabulance
--- NOTE | 2022-11-04 10:49 | OT.IP.EVAL ---
Current Diagnoses Age-related osteoporosis with current pathological fracture, unspecified femur, initial encounter for fracture (11/02/22) Fracture of unspecified part of neck of left femur, initial encounter for closed fracture (11/02/22) Surgery Performed Operation Date: 11/03/22 15:15 Actual Procedures p Hip Hemiarthroplasty Steve(Left) - Lynn King MD Past Medical History (Last Reviewed 11/04/22 @ 12:19 by Yamilet Knowles PA-C) Hypertension Methadone maintenance therapy patient Occupational Therapy Inpatient Evaluation/Re-Eval M1 PT/OT-IP Prior Functional Status Start: 11/04/22 07:58 Freq: NEEDED Status: Active Protocol: Document 11/04/22 12:31 CGR (Rec: 11/04/22 12:44 CGR [id number]) Medical Review Prior Functional Status Medical History Reviewed Yes Communication Pt is able to make her needs known. She is sleepy during this visit but states this is her baseline. Mobility and Gait Pt has been using a cane for the past month due to increased falls frequency. She was independently mobile prior to that. She presented to ED with concern for left foot drop on 10/21/22. Activities of Daily Living and IADL's Independent with ADL's. Pt depends on her roommate for transportation, or uses plublic transit, does not drive. Social History Household Members friend(s) Living Arrangements Mobile home Number of Floors (Floors) One Floor Number of Stairs To Enter/Railing? Steep ramp to enter. Home Environment Standard Height Toilet,Walk in Shower Home Equipment Grab Bars Near Toilet,Grab Bars In Shower Additional Social History Comment Pt states her shower has a tall step to enter. She lives with a roommate who may be available to assist as needed. M2 OT-IP Current Condition Start: 11/04/22 12:31 Freq: Status: Active Protocol: Document 11/04/22 12:31 CGR (Rec: 11/04/22 12:44 CGR [id number]) Occupational Therapy Current Condition Current Condition Evaluation Date 11/04/22 Treatment Diagnosis Fall w/ L displaced femoral neck fx, s/p 11/03 sx Diagnosis Onset Date 11/02/22 Post Operative Precautions Posterior Hip Precautions No Hip Flexion > 90 degrees,No Hip Internal Rotation,No Hip Adduction Weight Bearing Status Weight Bearing Status Weight Bear as Tolerated M3 OT- IP Subjective and Pain Start: 11/04/22 12:31 Freq: Status: Active Protocol: Document 11/04/22 12:31 CGR (Rec: 11/04/22 12:44 CGR [id number]) OT- Subjective Occupational Therapy Visit Type Type Initial Evaluation Visit Start Time 10:16 Visit Stop Time 10:49 Total Visit Minutes 33 Notes co-eval with P.T. OT Pain Assessment Pain When Pain Assessed At Rest Pain Present Pain Present Pain Reported Location Left hip Intensity 8 Scale Used Numeric (0 - 10) Management Techniques Distraction,Modification of Treatment,Re-positioning, Timing of Activity with Medications M4 OT- IP ADL's Start: 11/04/22 12:31 Freq: Status: Active Protocol: Document 11/04/22 12:31 CGR (Rec: 11/04/22 12:44 CGR [id number]) OT [id number] Comments OT Self-Feeding Comments not meal time OT ADL-Grooming Comments OT Grooming Comments Pt declined, states she already performed OT ADL-Oral Care Comments Oral Care Comments Pt declined, states she already performed OT ADL-Dressing General Eval Lower Body Dressing Ability Total Assistance Areas Needing Assistance Socks Comments OT Dressing Comments Pt too lethargic to begin LB dressing education at this time. OT ADL-Toileting General Evaluation Toileting Ability Total Assistance Comments OT Toileting Comments lehman OT ADL-Bathing Comments OT Bathing Comments not performed M5 OT- IP IADL's Start: 11/04/22 12:31 Freq: Status: Active Protocol: Document 11/04/22 12:31 CGR (Rec: 11/04/22 12:44 CGR [id number]) OT-Instrumental Activities of Daily Living Deficits IADL Deficits Identified Deficits Home Safety Awareness Awareness of Need for Assistance at Home Decreased Awareness Ability to Problem Solve Emergency Able to Problem Solve Situations Medication Management Medication Management Comments Pt goes to the clinic daily for methadone Money Management Money Management Comments Concerns regarding pt's ability to safely manage money Meal Preparation Meal Preparation Caregiver Provides Assist Kiln Tester Kiln Tester Caregiver Provides Assist Driving Driving Comments Pt does not drive at baseline. M6 OT- IP Functional Cognition Start: 11/04/22 12:31 Freq: Status: Active Protocol: Document 11/04/22 12:31 CGR (Rec: 11/04/22 12:44 CGR [id number]) Cognitive Factors Limiting Selfcare Function Cognitive Ability Level of Alertness Alert Patient Orientation Name,Age,Birthday,Day of Week, Place,Situation Attention Span Ability Unable to Focus,Unable to Sustain Attention Ability to Follow Commands Able to Follow One Step Commands with Increased Time, Able to Follow One Step Commands with Repetition Cognitive Comments Cognitive Assessment Comments Pt was unable to give the month, date, or year. Appears sleepy throughout session. OT- Vision and Hearing OT- Hearing Assessment OT- Hearing Assessment WFL OT- Vision Assessment Visual Acuity WFL Visual Attentiveness WFL Occular Pursuits WFL Visual Convergence WFL Vision Assessment Comments Pt wears bifocals M7 OT- IP Mobility and Balance Start: 11/04/22 12:31 Freq: Status: Active Protocol: Document 11/04/22 12:31 CGR (Rec: 11/04/22 12:44 CGR [id number]) OT- Bed Mobility Assessment Supine to Sit Supine to Sit Assist Minimal Assistance Scooting Scooting to Edge of Bed Minimal Assistance OT-Transfer Assessment Sit to and From Stand Sit to and from Stand Minimal Assistance Transfers Transfer Ability Minimal Assistance Technique Transfer Destination Bed,Chair Transfer Technique Stand Step Pivot Devices Transfer Assistive Devices Gait Belt,Front Wheeled Walker Comments Mobility Comments Pt needs extra time for all activity. OT- Gait Assessment Comments Gait Ability Comments not performed OT- Balance Assessment Sitting Balance and Reactions Static Sitting Balance Ability Good Dynamic Sitting Balance Ability Good M8 OT- IP Objective Assessments Start: 11/04/22 12:31 Freq: Status: Active Protocol: Document 11/04/22 12:31 CGR (Rec: 11/04/22 12:44 CGR [id number]) OT Gross Range of Motion Upper Extremity Range of Motion Assessment Within Functional Limits OT Strength Upper Extremity Strength Assessment Within Functional Limits Comments Strength Comments 4+/5 OT- Coordination Assessment Upper Extremity Finger to Nose Test Within Functional Limits Finger Tapping Test Within Functional Limits Comments Coordination Comments coordination testing limited in todays session, recommend 9 hole peg test at next session . OT-Muscle Tone Assessment Muscle Tone WNL Yes OT Sensation Assessment Edema Edema Absent M9 OT- IP Assessment and Plan Start: 11/04/22 12:31 Freq: Status: Active Protocol: Document 11/04/22 12:31 CGR (Rec: 11/04/22 12:44 CGR [id number]) OT Summary Assessment and Plan Potential Rehabilitation Potential Good Analytic Complexity at Evaluation Moderate Summary OT Impairments Pain,Balance,Functional Cognition,Functional Mobility, Dressing,Toileting,Bathing, Toilet Transfers,Shower Transfers,Activity Tolerance Progress Towards Goals Slow Progress due to Pain,Slow Progress due to Activity Tolerance,Slow Progress due to Cognition Assessment Summary Pt presents as a moderate complexity evaluation s/p admit for fall with L displaced femoral neck fx now s/p sx. Pt is WBAT to the LLE with posterior hip precautions . Pt presents with equal strength to BUE but with L arm drift and what appears to be slight droop to the L face. Pt was seen in ER recently for complaints of L sided weakness . CT at that time showed changes consistent with an infarct. Recommend further testing for likely recent stroke. Pt would benefit from continued OT services and SNF upon discharge. Goals Grooming Goal Independent Dressing Goal Independent Toileting Goal Independent Bathing Goal Independent Toilet Transfer Goal Independent Shower Transfer Goal Independent Days to Meet Goals 20 Frequency of Treatment Frequency Of Treatment Once a Day Treatment Plan OT Treatment Plan ADL Training,Functional Cognition Training,Functional Mobility,Therapeutic Exercises ,Patient/Family Education, Discharge Planning Other Treatment Recommendations and Next 9 hole peg test, cog Treatment Focus assessment Discharge Recommendations OT Discharge Recommendations SNF Rehab Transportation Needs at Discharge Wheelchair/Cabulance
--- NOTE | 2022-11-04 11:49 | P.PN_ITS ---
Subjective Subjective Date Patient Seen: 11/04/22 Time Patient Seen: 07:15 Interval history: Patient is lying comfortably in bed this morning. She denies fever, chills, nausea, vomiting, numbness and tingling to the lower extremities. She is quite somnolent this morning. States that her pain is improved from before surgery and is well controlled with medication. Looking forward to working with PT. Exam Vital Signs (past 8 hours): - 11/04/22 04:32 11/04/22 09:23 11/04/22 07:00 Temperature 97.9 F 97 F L Pulse Rate 82 64 Respiratory Rate 20 18 Blood Pressure 137/77 133/79 Pulse Oximetry 97 94 Oxygen Delivery Method Room Air Oxygen Flow Rate 0 0 Oxygen Delivery Method Room Air Oxygen Flow Rate 0 Narrative Exam Narrative: Pleasant 67-year-old female. Awake yet somnolent. Intraoperative dressing clean, dry, and intact. Strength decreased to bilateral lower extremities left more than right. Sensation intact to bilateral lower extremities. Bilateral calves soft and compressible. Left calf mildly tender to palpation. No erythema or bruising to left lower extremity. Objective Labs 11/03/22 06:30 11/03/22 06:30 Labs: Laboratory Results - last 24 hr 11/03/22 23:20 Urine Color Yellow Urine Appearance Clear Urine pH 6.5 Ur Specific Gordon 1.020 Urine Protein Negative Urine Glucose (UA) Negative Urine Ketones 1+ H Urine Occult Blood Negative Urine Nitrate Negative Urine Bilirubin Negative Urine Urobilinogen 1.0 Ur Leukocyte Esterase Trace H Urine RBC 0-1/hpf Urine WBC 10-30/hpf H Ur Squamous Epith Cells 0-1 /hpf Urine Bacteria Few (2-10) H Hyaline Casts 5-10/lpf Ur Culture Indicated? Specimen cultured [facility] Medical History Hypertension Methadone maintenance therapy patient Social History household members: friend(s) Smoking Status: Current every day smoker alcohol intake: former Assessment & Plan Post-op Assessment and plan (1) Osteoporotic hip fracture: Postoperative Procedures: Procedures Operation Date: 11/03/22 15:15 Actual Procedure Side Surgeon p Hip Hemiarthroplasty Steve Left Lynn King MD Postoperative day: 1 Postoperative status: doing well Postoperative status narrative: Patient progressing as expected after left hip hemiarthroplasty, pod 1 Postoperative plan: routine post-op care Postoperative plan narrative: Weightbear as tolerated - patient to work with PT today. Pillow between legs while in bed. Posterior hip precautions x6 weeks. Lovenox for DVT prophylaxis x4 weeks. Follow-up in 2 weeks for incision check and x-rays. Calcium and vitamin-D for bone health. Abstain from smoking. Disposition pending - likely SNF for additional rehab before dc to home environment due to frequent falls prior to and including current incident. Quality VTE Deep Vein Thrombosis/Pulmonary Embolism Present on Admission: No
--- NOTE | 2022-11-04 11:59 | DI.MRI.S_ITS ---
PROCEDURE: MR HEAD/BRAIN WO/W CON INDICATIONS: Persistent arm and leg weakness, prior noted encephmala TECHNIQUE: Noncontrast axial T1 spin echo, axial T2 fast spin echo, sagittal and axial FLAIR, coronal T2 fast spin echo, axial gradient echo, axial diffusion and ADC through the brain. After the administration of contrast, axial and coronal and sagittal T1 spin echo with fat saturation through the brain. COMPARISON: [facility], CT, CT ANGIO HEAD AND NECK, 10/21/2022, 21:42. FINDINGS: Image quality: Excellent. CSF spaces: Basal cisterns are patent. No extra-axial fluid collections. Ventricles are normal in size and shape. Brain: No midline shift. No acute intracranial bleeds or masses. Low gradient echo signal intensity foci within the right thalamus. No abnormal intracranial enhancement. There is cerebral volume loss for age. There is periventricular white matter chronic small vessel ischemic change. The brainstem appears normal. Diffusion-weighted images demonstrate a 7 mm diameter region of elevated signal intensity within the left cerebellar hemisphere which demonstrates low ADC map signal and mild FLAIR signal elevation. Small chronic right cerebellar infarct. Normal intravascular flow voids are present. Skull and face: Calvarial marrow is normal in signal. Orbits appear normal. Sinuses: Sinuses and mastoids appear clear. IMPRESSION: 1. Small early subacute left cerebellar infarct. Small chronic right cerebellar infarct. 2. Volume loss and small vessel ischemic disease. 3. Calcification versus chronic hemorrhagic products within the right basal ganglia. No evidence of acute intracranial hemorrhage. Dictated by: Amanda Condon M.D. on 11/04/2022 at 16:27 Approved by: Amanda Condon M.D. on 11/04/2022 at 16:30
--- NOTE | 2022-11-04 13:26 | DI.MRI.S_ITS ---
PROCEDURE: MR LUMBAR SPINE WO CON INDICATIONS: Assess for nerve root compromise causing footdrop TECHNIQUE: Noncontrast sagittal T1 spin echo and T2 fast echo, sagittal STIR, and T2 fast spin echo through the lumbar spine. In cases with scoliosis, additional coronal T2 fast spin echo may be performed. COMPARISON: None. FINDINGS: Image quality: Excellent. Alignment and Curvature: There is normal bony alignment. Bone Marrow: Focal edema in S2 segment is partially imaged on the sagittal STIR sequence. Remainder of the marrow signal unremarkable. Wedge-shaped L1 compression fracture without marrow edema Spinal Cord: Conus medullaris terminates at the L1 level. Visualized cord demonstrates normal signal and size. Paraspinous Soft Tissues: No paravertebral masses. T12-L1: Normal appearance. L1-L2: Normal appearance. L2-L3: Disc height is preserved. Hypertrophic facet joints present. No central or foraminal stenosis L3-L4: Disc height is preserved. Hypertrophic facet joints present. Mild central stenosis. Mild right and no left foraminal stenosis L4-L5: Disc height is preserved. Hypertrophic facet joints and ligamentum laxity results in moderate central stenosis. Moderate right and mild left foraminal stenosis L5-S1: Disc height is preserved. Hypertrophic facet joints. No central or foraminal stenosis. IMPRESSION: Marrow edema in the S2 vertebral segment, partially imaged. Consider follow-up CT pelvis to assess for sacral fracture. Multilevel degenerative disc disease and arthropathy results in varying degrees of central and foraminal stenosis including moderate central and right foraminal stenosis at L4-5 Approved by: Alex Oakley M.D. on 11/04/2022 at 16:49
[2022-11-04] MEDS: LORazepam 1 MG TABLET PO (15:08)
[2022-11-04] MEDS: MELATONIN 3 MG TABLET 6 MG PO (21:33)
[2022-11-05] VITALS: BP 113/52; PULSE 65; RESP 17; TEMP 36.2; O2SAT 95
[2022-11-05] MEDS: KETOROLAC 30 MG/ML VIAL IV ×4 (04:00→20:47)
[2022-11-05 06:00] VITALS: BP 174/85; PULSE 64; RESP 18; TEMP 36.2; O2SAT 94
[2022-11-05] MEDS: ONDANSETRON 4 MG/2 ML INJ IV (08:18)
[2022-11-05] MEDS: SODIUM CHLORIDE 0.9% FLUSH 10 ML IV ×4 (08:19→20:50)
[2022-11-05] MEDS: ENOXAPARIN 40 MG/0.4 ML SYRINGE SUBCUT (09:43)
--- NOTE | 2022-11-05 10:23 | OT.IPNOTE ---
Per nursing, pt has been nauseous, not feeling well and best to check on the pt later for therapy.
[2022-11-05] MEDS: LORazepam 1 MG TABLET PO (11:25)
--- NOTE | 2022-11-05 11:26 | PT-IP ANOTE ---
Pt refused to work with PT twice this morning due to feeling nauseous. May check back with pt in afternoon if time.
[2022-11-05 12:00] VITALS: BP 185/83; PULSE 63; RESP 16; TEMP 37.3; O2SAT 95
--- NOTE | 2022-11-05 12:42 | OT.IPNOTE ---
Went to check with nursing and per nurse pt just given Ativan as still nauseous.
--- NOTE | 2022-11-05 13:13 | OT.IP.TRT ---
Current Diagnoses Age-related osteoporosis with current pathological fracture, unspecified femur, initial encounter for fracture (11/02/22) Fracture of unspecified part of neck of left femur, initial encounter for closed fracture (11/02/22) Surgery Performed Operation Date: 11/03/22 15:15 Actual Procedures p Hip Hemiarthroplasty Steve(Left) - Lynn King MD Occupational Therapy Treatment Note M2 OT-IP Current Condition Start: 11/04/22 12:31 Freq: Status: Active Protocol: Document 11/04/22 12:31 CGR (Rec: 11/04/22 12:44 CGR [id number]) Occupational Therapy Current Condition Current Condition Evaluation Date 11/04/22 Treatment Diagnosis Fall w/ L displaced femoral neck fx, s/p 11/03 sx Diagnosis Onset Date 11/02/22 Post Operative Precautions Posterior Hip Precautions No Hip Flexion > 90 degrees,No Hip Internal Rotation,No Hip Adduction Weight Bearing Status Weight Bearing Status Weight Bear as Tolerated M3 OT- IP Subjective and Pain Start: 11/04/22 12:31 Freq: Status: Active Protocol: Document 11/05/22 15:00 [facility] (Rec: 11/05/22 15:41 [facility] [id number]) OT- Subjective Occupational Therapy Visit Type Type Treatment Note Visit Start Time 15:00 Visit Stop Time 15:13 Total Visit Minutes 13 Occupational Therapy Visit Comments Patient Comments Pt agreed to work with OT. Patient/Caregiver Goals TO go home. OT Pain Assessment Pain When Pain Assessed At Rest Pain Present Pain Present Denied Pain M4 OT- IP ADL's Start: 11/04/22 12:31 Freq: Status: Active Protocol: Document 11/05/22 15:00 [facility] (Rec: 11/05/22 15:41 [facility] [id number]) OT [id number] Comments OT Self-Feeding Comments Pt needing assist for set-up for the tray and not able to assist with left hand to open or hold items at this time. OT ADL-Grooming Comments OT Grooming Comments Pt able to use her right hand to brush her hair. Pt only able to get to the lower side of left side of her hair with left hand for brushing her hair, due to decreased strength and coordination. OT ADL-Oral Care Comments Oral Care Comments Pt states did prior. OT ADL-Dressing General Eval Lower Body Dressing Ability Total Assistance Areas Needing Assistance Socks OT ADL-Toileting General Evaluation Toileting Ability Total Assistance Comments OT Toileting Comments lehman OT ADL-Bathing Comments OT Bathing Comments Sponge bath more appropriate at this time. M5 OT- IP IADL's Start: 11/04/22 12:31 Freq: Status: Active Protocol: Document 11/04/22 12:31 CGR (Rec: 11/04/22 12:44 CGR [id number]) OT-Instrumental Activities of Daily Living Deficits IADL Deficits Identified Deficits Home Safety Awareness Awareness of Need for Assistance at Home Decreased Awareness Ability to Problem Solve Emergency Able to Problem Solve Situations Medication Management Medication Management Comments Pt goes to the clinic daily for methadone Money Management Money Management Comments Concerns regarding pt's ability to safely manage money Meal Preparation Meal Preparation Caregiver Provides Assist Veneer Gluer Veneer Gluer Caregiver Provides Assist Driving Driving Comments Pt does not drive at baseline. M6 OT- IP Functional Cognition Start: 11/04/22 12:31 Freq: Status: Active Protocol: Document 11/05/22 15:00 [facility] (Rec: 11/05/22 15:41 [facility] [id number]) Cognitive Factors Limiting Selfcare Function Cognitive Comments Cognitive Assessment Comments Pt only able to state 1/3 for her hip precautions and very sleepy and having difficulty to stay awake. M7 OT- IP Mobility and Balance Start: 11/04/22 12:31 Freq: Status: Active Protocol: Document 11/05/22 15:00 [facility] (Rec: 11/05/22 15:41 [facility] [id number]) OT-Transfer Assessment Sit to and From Stand Sit to and from Stand Moderate Assistance Comments Mobility Comments Pt able to stand with MODA and walk 5 ft with MAX A and pt heavily leans to the left. OT- Balance Assessment Sitting Balance and Reactions Static Sitting Balance Ability Good Dynamic Sitting Balance Ability Good Standing Balance and Reactions Static Standing Balance Ability Poor Dynamic Standing Balance Ability Poor M8 OT- IP Objective Assessments Start: 11/04/22 12:31 Freq: Status: Active Protocol: LUE 11/05 much weaker and 3/5 for shoulder flexion and decreased coordination and not able to hold small objects at this time. 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 M9 OT- IP Assessment and Plan Start: 11/04/22 12:31 Freq: Status: Active Protocol: Document 11/05/22 15:00 [facility] (Rec: 11/05/22 15:41 [facility] [id number]) OT Summary Assessment and Plan Potential Rehabilitation Potential Good Analytic Complexity at Evaluation Moderate Summary OT Impairments Pain,Balance,Functional Cognition,Functional Mobility, Dressing,Toileting,Bathing, Toilet Transfers,Shower Transfers,Activity Tolerance Progress Towards Goals Slow Progress due to Pain,Slow Progress due to Medical Issues,Slow Progress due to Cognition Assessment Summary Pt not able to use left hand to assist for meal set-up, or able to hold shoe lace when shoe placed in her lap- in attempts to try to her shoe. Pt left arm appears to be weaker today. Pt needing extensive assist and would greatly benefit from skilled rehab. Goals Grooming Goal Independent Dressing Goal Independent Toileting Goal Independent Bathing Goal Independent Toilet Transfer Goal Independent Shower Transfer Goal Independent Days to Meet Goals 30 Frequency of Treatment Frequency Of Treatment Once a Day Treatment Plan OT Treatment Plan ADL Training,Functional Cognition Training,Functional Mobility,Therapeutic Exercises ,Patient/Family Education, Discharge Planning Discharge Recommendations OT Discharge Recommendations SNF Rehab Transportation Needs at Discharge Wheelchair/Cabulance
--- NOTE | 2022-11-05 15:14 | PT.IPTN ---
Current Diagnoses Age-related osteoporosis with current pathological fracture, unspecified femur, initial encounter for fracture (11/02/22) Fracture of unspecified part of neck of left femur, initial encounter for closed fracture (11/02/22) Surgery Performed Operation Date: 11/03/22 15:15 Actual Procedures p Hip Hemiarthroplasty Steve(Left) - Lynn King MD Physical Therapy Treatment Note M2 PT-IP Current Condition Start: 11/04/22 07:58 Freq: NEEDED Status: Active Protocol: Document 11/04/22 10:47 AW (Rec: 11/04/22 11:47 AW [id number]) Physical Therapy Current Condition Current Condition Evaluation Date 11/04/22 Treatment Diagnosis L femoral neck fracture s/p hemiarthroplasty with posterior approach Onset Date 11/02/22 M3 PT-IP Subjective Start: 11/04/22 07:58 Freq: NEEDED Status: Active Protocol: Document 11/05/22 15:31 TS (Rec: 11/05/22 15:45 TS [id number]) Subjective Physical Therapy Visit Type Type Treatment Note Visit Start Time 15:14 Visit Stop Time 15:29 Total Visit Minutes 15 Notes Split treament with OT. Number of WARP TYING MACHINE TENDER Visits 1 Physical Therapy Visit Comments Patient Comments Pt found resting in chair, lethargic, soft spoken, agreeable to PT. Therapy Pain Assessment Pain When Pain Assessed At Rest Pain Present Pain Present Denied Pain M4 PT-IP Mobility and Gait Start: 11/04/22 07:58 Freq: NEEDED Status: Active Protocol: Document 11/05/22 15:31 TS (Rec: 11/05/22 15:45 TS [id number]) PT-Transfer Assessment Sit to and From Stand Sit to and from Stand Moderate Assistance Equipment Transfer Assistive Device Gait Belt,Front Wheeled Walker Orthotic/Prosthetic Devices or Brace: No Comments Mobility Comments Pt found resting in chair, agreeable to PT. Prior to mobility pt recalled 1/3 posterior hip precautions, could not recall internal rotation and flexing past 90D. Sit to stand ModA, pt leans heavily to left side, requires consistent cueing to weight shift to R side throught treatment. She ambulated ~5' step to gait w/FWW MaxA and with chair follow, pt continues to lean to left side , requires cues to shift weight and upright posture. Stand to sit in chair ModA, provided cues for reaching for arms of chair for slow control into sitting. Pt was left in chair, with call light nearby, chair alarm on. Gait Assessment Gait Gait Assistance Required: Maximum Assistance,1 Person Assist Distance (Feet) 5 Able to Maintain Weight Bearing Status Yes During Gait Assistive Devices Assistive Device Gait Belt,Front Wheeled Walker Orthotic/Prosthetic Devices or Brace: No Gait Deviations General Gait Pattern Antalgic,Decreased Stride Length,Decreased Feet Clearance,Lateral Trunk Lean Factors Limiting Gait Function Factors Limiting Gait Function Decreased Activity Tolerance, Decreased Strength,Limited Range of Motion,Pain,Poor Balance,Poor Safety Awareness Comments Gait Comments See mobility comments. PT-Balance Assessment Sitting Balance and Reactions Static Sitting Balance Ability Fair Dynamic Sitting Balance Ability Fair Standing Balance and Reactions Static Standing Balance Ability Poor Dynamic Standing Balance Ability Poor Device Used FWW M5 PT-IP Objective Assessments Start: 11/04/22 07:58 Freq: NEEDED Status: Active Protocol: Document 11/04/22 10:47 AW (Rec: 11/04/22 11:47 AW [id number]) Orientation Orientation/Cognition Level of Alertness Lethargic Orientation Name,Day of Week,Place, Situation Safety Awareness Decreased Safety Awareness Comments Not oriented to month or year. Pt presents with challenged attention but is able to be directed easily. Gross Range of Motion Upper Extremity ROM Assessment Within Functional Limits Strength Upper Extremity Strength Assessment Left Impaired Shoulder drift noted Lower Extremity Strength Assessment Bilaterally Impaired Hip L 3-/5 in flexion and rotation Knee L 4/5 ext, 4-/5 flex Ankle L DF 4/5 on single contraction but worse functionally Comments Strength Comments RLE hip grossly 4-/5, knee ext 4+/5 flex 4/5, ankle DF 4+/5. Slight unilateral deficit. Pt 's left hip rests in internal rotation and PT suspects this is due to weakness of hip ER and abduction. Coordination Assessment Gross Coordination Gross Coordination WNL Sensation Assessment Sensation Gross Sensation WNL Other Assessments Other Other Assessments Vision is impaired with pt reporting she wears bifocals at all time. Tracking was challenged. M6 PT-IP Treatment Start: 11/04/22 07:58 Freq: NEEDED Status: Active Protocol: Document 11/05/22 15:31 TS (Rec: 11/05/22 15:45 TS [id number]) Physical Therapy Treatment Education Education Provided Precautions,Weight Bearing Status,Post-Op Packet,Safety M7 PT-IP Assessment and Plan Start: 11/04/22 07:58 Freq: NEEDED Status: Active Protocol: Document 11/05/22 15:31 TS (Rec: 11/05/22 15:45 TS [id number]) PT Summary Assessment and Plan Potential Rehabilitation Potential Fair Summary Impairments Pain,ROM,Strength,Balance,Bed Mobility,Transfers,Gait Progress Towards Goals Slow Progress due to Medical Issues,Slow Progress due to Activity Tolerance Assessment Summary Pt is progressing slowly with her mobility. She is lethargic and has difficulty responding to questions from therapist. She recalled 1/3 hip precautions prior to mobility, could not recall hip flexion past 90D and internal rotation . She required ModA for sit to stand from chair. She did progress her gait to ~5' with chair follow MaxA for balance. She continues to lean heavily to L side, requires consistent cues to weight shift to R side throughout treament. She has some retroleaning in standing and improves when provided cues for upright posture. PT is recommending SNF at this time to progress bed mobility, transfers and gait. Goals Bed Mobility Goal Standby Assistance Transfer Goal Standby Assistance,Front Wheeled Walker Gait Goal Standby Assistance,Front Wheel Walker Gait Distance 75 Other Goals - up/down 4 steps with railing CGA - able to recall 3/3 hip precautions Days to Meet Goals 10 Frequency of Treatment Frequency Of Treatment Once a Day Treatment Plan Physical Therapy Treatment Plan Bed Mobility Training,Transfer Training,Gait Training, Therapeutic Exercise,Balance Retraining,Post Op Education, Discharge Planning,Hot or Cold Pack,Neuromuscular Re-ed Other Recommendations and Next Treatment positioning for LLE; ther ex; Focus transfers; gait with FWW and chair follow Precautions Posterior Hip Precautions No Hip Flexion > 90 degrees,No Hip Internal Rotation,No Hip Adduction Other Precautions Left sided weakness. Weight Bearing Status Weight Bearing Status Weight Bear as Tolerated Recommendations To Nursing Amount of Assist Needed 2 Person Assist Discharge Recommendations PT Discharge Recommendations SNF Rehab Transportation Needs at Discharge Wheelchair/Cabulance
--- NOTE | 2022-11-05 15:15 | PM.PN.1 ---
Subjective Subjective Interval history: She has been more nauseous this morning with wretching. Does not recall if she got methadone yesterday, was unable to take due to nausea today. No bowel movement for 3-4 days, complains of mild RLQ pain. MRI performed yesterday for previous imabalance showed both an early subacute and chronic cerebellar infarcts on both her L and R sides. Exam Vital Signs (past 8 hours): - 11/05/22 12:00 Temperature 99.2 F Pulse Rate 63 Respiratory Rate 16 Blood Pressure 185/83 H Pulse Oximetry 95 Oxygen Flow Rate 0 Oxygen Delivery Method Room Air Oxygen Flow Rate 0 Narrative Exam Narrative: GEN: No acute medical distress. HEENT: moist mucous membranes, PERRL NECK: trachea midline, no JVD CV: regular rate and rhythm, no murmurs PULM: clear bilaterally ABD: soft, nontender, nondistended, no organomegaly EXT:? postop dressing in place, no edema NEURO: awake, alert, oriented, no focal deficits Objective Labs 11/03/22 06:30 11/03/22 06:30 [facility] Medical History Hypertension Methadone maintenance therapy patient Social History household members: friend(s) Smoking Status: Current every day smoker alcohol intake: former Assessment & Plan Assessment & Plan narrative: # L femoral neck fracture, pathologic, acute, present on admission -surgery completed yesterday with left hip hemiarthroplasty -sustained after GLF from losing balance , likely has underlying osteoporosis -hip XR showed angulated and displaced femoral neck fracture -continue methadone daily for pain control -possible SNF for discharge, may be difficult on methadone. # leukocytosis -WBC 12.6 initially on presentation, now normal -CXR negative -monitor for infection -likely reactive # h/o substance abuse on daily methadone -continue methadone 130mg daily -QTc 452 in ED # HTN -continue lisinopril, slightly elevated today, possibly due to pain +/- nausea and ? opiate withdrawal noted below #nausea - possibly secondary to opiate withdrawal, attempt to give methadone today, benzos are okay for nausea and possible withdrawal. - may be due to constipation, will start on softeners and laxitives - continue symptom relief. #subacute and old prior CVA - start asa, statin therapy, she presented delayed to the ER earlier this month with foot drop. MRI was not performed at that time but patient wished to be discharged from the ER. - continue PT/OT #possible sacral fracture - seen on MRI of lumbar spine, continue PT/OT pain control. Additional imaging will not oil changer at this time for more definitive diagnosis. Code status is Full code. DVT prophylaxis with lovenox following surgery. Proxy is friend Kiran. Dispo: may need SNF, though may be difficult placement. Continue PT /OT Discussed with patient, bedside staff, and care management team. Reviewed current admission documentation, labs, and relevant imaging. Quality VTE Deep Vein Thrombosis/Pulmonary Embolism Present on Admission: No
--- NOTE | 2022-11-05 15:28 | PM.PNPO.1 ---
Subjective Subjective Date Patient Seen: 11/05/22 Time Patient Seen: 15:29 Interval history: Patient did not denies left hip pain. No fever or chills. No nausea or vomiting. Exam Vital Signs (past 8 hours): - 11/05/22 12:00 Temperature 99.2 F Pulse Rate 63 Respiratory Rate 16 Blood Pressure 185/83 H Pulse Oximetry 95 Oxygen Flow Rate 0 Oxygen Delivery Method Room Air Oxygen Flow Rate 0 Narrative Exam Narrative: 67-year-old female sitting up in bedside chair in no apparent distress. Left hip dressing shows scant drainage. Motor functions intact distal left lower extremity. Sensation grossly intact to light touch. Const General: comfortable Nutritional Appearance: average body habitus Orientation: alert Resp Effort & Inspection: normal respiratory effort and able to speak in complete sentences Objective Labs 11/03/22 06:30 11/03/22 06:30 ON LICENSE OF [facility] Medical History Hypertension Methadone maintenance therapy patient Social History household members: friend(s) Smoking Status: Current every day smoker alcohol intake: former Assessment & Plan Post-op Postoperative Procedures: Procedures Operation Date: 11/03/22 15:15 Actual Procedure Side Surgeon p Hip Hemiarthroplasty Steve Left Lynn King MD Postoperative day: 2 Postoperative status narrative: Patient progressing slowly status post left hip hemiarthroplasty Postoperative plan: routine post-op care Postoperative plan narrative: Weightbear as tolerated, Pillow between legs while in bed. Posterior hip precautions x6 weeks. Lovenox for DVT prophylaxis x4 weeks. Follow-up in 2 weeks for incision check and x-rays. Calcium and vitamin-D for bone health. Abstain from smoking. Disposition pending - likely SNF for additional rehab before dc to home environment due to frequent falls prior to and including current incident. Quality VTE Deep Vein Thrombosis/Pulmonary Embolism Present on Admission: No
--- NOTE | 2022-11-05 15:31 | CM.DPC ---
DCP Cont: Met with patient, she was fatigues. She then indicted, she would like to go across the street for rehab. [facility] in [place] has already accepted, but Tenisha at [facility] can accept, patient will need to have prescriptions of Methadone, since they can't take her to [facility]. P: DCP to continue to follow. [facility] can accept patient tomorrow if she is medically ready. Radha Bach RN/Radiology Teacher
[2022-11-05] MEDS: METHADONE 10 MG TABLET 130 MG PO (16:40)
[2022-11-05 18:13] VITALS: BP 141/79; PULSE 78; RESP 16; TEMP 37.7; O2SAT 95
[2022-11-05 20:47] VITALS: BP 139/76; PULSE 85
[2022-11-05] MEDS: ATORVASTATIN 20 MG TABLET 40 MG PO (20:47)
[2022-11-05] MEDS: lisinopriL 10 MG TABLET PO (20:47)
[2022-11-05] MEDS: SENNOSIDES 8.6 MG TABLET PO (20:48)
--- NOTE | 2022-11-05 21:50 | PC.NURSE ---
Addendum entered by Tatiana Ang R.N. 11/06/22 01:07: Noted O2 sat dropping down to 87% when sleeping so placed on oxygen at 1L/min per NC. Original Note: Patient is oriented to all except day of week and year. Responses are slow and speech is slurred and soft spoken. Breath sounds diminished throughout w/RA sat of 95%; is on continuous oximetry. HRR. Denies nausea. BT hypoactive and has not had a BM since 10/31 but per patient is passing flatus; medicated with Senna. Indwelling catheter is patent. Is needing to be assisted to reposition q2h although is able to help. Aquacel dressing to left hip is intact with drainage noted and outlined. CMS is intact and demonstrates good ROM. Bilateral calf SCD's were applied. Did complain of 7/10 left hip pain when scheduled Toradol administered and now states it has improved. Fall risk score is high and bed alarm is activated.
[2022-11-06] VITALS: BP 126/66; PULSE 89; RESP 17; TEMP 36.7; O2SAT 91
[2022-11-06] MEDS: KETOROLAC 30 MG/ML VIAL IV ×2 (03:01→08:35)
[2022-11-06] MEDS: SODIUM CHLORIDE 0.9% FLUSH 10 ML IV ×2 (03:01→08:29)
[2022-11-06 06:00] VITALS: BP 133/72; PULSE 69; RESP 17; TEMP 35.6; O2SAT 96
[2022-11-06] MEDS: ASPIRIN EC 81 MG TABLET PO (08:28)
[2022-11-06] MEDS: ENOXAPARIN 40 MG/0.4 ML SYRINGE SUBCUT (08:28)
[2022-11-06] MEDS: METHADONE 10 MG TABLET 130 MG PO (08:28)
--- NOTE | 2022-11-06 08:50 | P.DS_ITS ---
History of Present Illness History of Present Illness Date Patient Seen: 11/06/22 Time Patient Seen: 08:50 Chief complaint: dizzy/fall/hip pain Narrative: Per admitting provider, Maggie Salas is a 67yo F with PMH of frequent falls, prior substance use on methadone daily and HTN who presents with GLF resulting in L hip fracture. Patient says she has been falling alot lately, roughly 4x in the past month. She feels like her balance is very off lately. She got up early this morning and was barely awake when she went into the kitchen, lost her balance and fell on her side. She had immediate pain in the hip but she continued to walk on it hoping it would get better but it did not. She says she has been walking with a cane lately due to her falls. In the ED patient found to have left femoral neck fracture. She is currently in 8/10 pain as she did not take her morning dose of methadone. She denies any dizziness, lightheadedness, syncope preceding the fall and no current CP, NV, abd pain or diarrhea. Discharge Providers Provider Date of admission: 11/02/22 16:09 Discharge Date: 11/06/22 Primary care physician: Doctor Gary MD Consults: 11/02/22 16:20 Consult to Orthopedic Surgery Routine Comment: Consulting Provider: Danika Goodwin Reason for consultation: L hip fracture Has provider been notified: Yes 11/02/22 19:01 Consult to OFFICE MACHINE INSTALLER - Foreign Trade Teacher Routine Comment: 11/03/22 18:47 Consult to Discharge Planning Routine Comment: Consult to Occupational Therapy Evaluate & Treat Comment: toliet riser, etc Physician Instructions: Evaluate and treat Consult to Physical Therapy Evaluate & Treat Comment: L joselo, php. reg pillow btw legs in bed. WBAT LLE Physician Instructions: post op ROSS protocol Discharge provider: Rashad Ramesh DO Summary Hospital Course Discharge Diagnosis: # L femoral neck fracture, pathologic, acute, present on admission # leukocytosis, improved # h/o substance abuse on daily methadone # HTN #nausea, improved #subacute and old prior CVA #possible sacral fracture #asymptomatic bacteruria Hospital Course: 67 year old female with PMH of substance abuse on methadone with recent falls who suffered a L femoral neck fracture after a ground level fall. She underwent L hemiarthoplasty with orthopedic surgery on 11/03/22. As as workup for her falls and L foot drop that had been new recently for the patient, MRI was performed and she was noted to have multilevel foraminal narrowing and a possible sacral fracture, chronic, and brain MRI revealed subacute and chronic strokes. Further imaging of possible sacral fracture was not persued given no change in acute management at this time. She was started on secondary prevention and worked with PT and OT for her subacute and chronic stroke which was diagnosed this admission . UA was checked initially, but she was asymptomatic and though cultures grew E. coli this is considered to be asymptomatic bacteuria. She was transferred to SNF for ongoing therapies after CVA and L hemiarthoplasty. Time Spent with Patient Time spent: Greater than 30 minutes Exam Vital Signs (past 8 hours): - 11/06/22 06:00 Temperature 96.1 F L Pulse Rate 69 Respiratory Rate 17 Blood Pressure 133/72 Pulse Oximetry 96 Oxygen Flow Rate 1 Oxygen Delivery Method Room Air Oxygen Flow Rate 1 Narrative Exam Narrative: GEN: No acute medical distress. HEENT: moist mucous membranes, PERRL NECK: trachea midline, no JVD CV: regular rate and rhythm, no murmurs PULM: clear bilaterally ABD: soft, nontender, nondistended, no organomegaly EXT:? postop dressing in place, no edema NEURO: awake, alert, oriented, no focal deficits Objective Labs 11/03/22 06:30 11/03/22 06:30 COUNTS INCLUDE 234 BEDS AT THE [facility] Medical History Hypertension Methadone maintenance therapy patient Social History household members: friend(s) Smoking Status: Current every day smoker alcohol intake: former Discharge Plan Discharge Plan Patient Disposition: SNF Transfer to: [facility] Healthcare Provider Discharge Comment: 67 F admitted after a fall with a hip fracture. She is on methadone for prior substance use. She underwent hemiarthroplasty for her hip fracture. As part of evaluation for her fall, MRI showed subacute and old strokes. She was started on secondary prevention medications for this. Per orthopedics, posterior hip precautions to remain in place for 6 weeks. Recommend asa 81 mg twice a day for 6 weeks, then decrease to daily. Follow up with orthopedics in 2 weeks recommended for incision check and x-rays. Discharge orders & Medications Prescriptions: New acetaminophen 325 mg Tablet 650 mg PO Q6H PRN (Reason: Fever/Mild Pain (1-3)) 30 Days Qty: 60 0RF aspirin 81 mg Tablet,Delayed Release (Dr/Ec) 81 mg PO BID 42 Days Qty: 30 0RF atorvastatin 20 mg Tablet 40 mg PO BEDTIME Qty: 30 0RF lorazepam 1 mg Tablet 1 mg PO Q6HR PRN (Reason: Anxiety) 7 Days Qty: 25 0RF hydroxyzine pamoate 25 mg Capsule 25 mg PO Q6HR PRN (Reason: spasms) Qty: 30 0RF polyethylene glycol 3350 17 gram Powder In Packet 17 g PO DAILY PRN (Reason: Constipation) Qty: 14 0RF melatonin 3 mg Tablet 6 mg PO BEDTIME PRN (Reason: Insomnia) Qty: 30 0RF ondansetron 4 mg Tablet,Disintegrating 4 mg PO Q4HR PRN (Reason: Nausea) Qty: 30 0RF oxycodone 10 mg Tablet 10 mg PO Q3HR PRN (Reason: Pain, Severe (7-10)) 7 Days Qty: 30 0RF sennosides [senna] 8.6 mg Tablet 8.6 mg PO BID PRN (Reason: Constipation) Qty: 30 0RF Continued lisinopril 10 mg tablet 10 mg PO BEDTIME fluticasone furoate-vilanterol [Breo Ellipta] 100-25 mcg/dose blister with device 2 inh INHALATION DAILY methadone 10 mg/mL Concentrate 130 mg PO DAILY 30 Days Qty: 1000 0RF Rx Instructions: confirmed w/ [facility]. Follow up/Referrals: Doctor Vega MD [Primary Care Provider] - Discharge Health Status Multidrug resistant organism: No MDRO Precautions: [place] Diet/Activity/Treatments Diet: Diet as Tolerated and Regular Liquid consistency: Normal/Thin Food texture: Regular Diet comment: No modifications needed. Activity: Posterior hip precautions x 6 weeks, weight bear as tolerated. Special Rehabilitation Services Reason for rehabilitation: Post-operative therapy and Therapy following stroke Rehab type: Physical therapy and Occupational therapy Visit Report/Discharge Packet Stand Alone Forms: Patient Portal/API Discharge Data Primary Care Provider: GaryDoctor Discharges patient from system. Discharge Date/Time: 11/06/22 12:48 Quality VTE Deep Vein Thrombosis/Pulmonary Embolism Present on Admission: No
[2022-11-06] MEDS: CALCIUM CARBONATE 500 MG TAB PO (09:12)
--- NOTE | 2022-11-06 09:13 | CM.DPC ---
Plan for DC today to [facility]. Packet faxed including, orders, PASRR. Number for report given to Holly cunningham RN. CM team following for planned DC today. Update to October at [facility]. Estimated pickup time [phone] for today.
[2022-11-06 11:27] VITALS: O2SAT 96
--- NOTE | 2022-11-06 11:35 | PC.NURSE ---
Pt is packed up and ready to discharge to [facility]. Called report to Messi-radha RN at [facility] and answered all questions. Pt is ready to transfer out as soon as transfer personnel arrive. All belongings are already packed up to go with Pt.
--- NOTE | 2022-11-06 12:48 | PC.NURSE ---
Pt out via w/c by [facility] transfer personnel with packet and all belongings.
== END 2022-11-06 12:48 | DRG 521 ==
LOC: ED 14:57 → AC 16:10
PROVIDERS: Orthopaedic Surgery Foot and Ankle Surgery; Admitting Provider Student in an Organized Health Care Education/Training Program; Emergency Provider Emergency Medicine; Referring Provider Emergency Medicine; Visit Provider Student in an Organized Health Care Education/Training Program
PROC: 0SRS0JZ Replacement of Left Hip Joint, Femoral Surface with Synthetic Substitute, Open Approach (ICD-10-PCS; CPT 27125; principal; 2022-11-03 15:15)
DX: M84.452A Pathological fracture, left femur, initial encounter for fracture (principal); I63.9 Cerebral infarction, unspecified; I10 Essential (primary) hypertension; F19.11 Other psychoactive substance abuse, in remission; F11.90 Opioid use, unspecified, uncomplicated; R82.71 Bacteriuria; B96.20 Unspecified Escherichia coli [E. coli] as the cause of diseases classified elsewhere; F17.200 Nicotine dependence, unspecified, uncomplicated; Z86.73 Personal history of transient ischemic attack (TIA), and cerebral infarction without residual deficits; Z91.81 History of falling; Z20.822 Contact with and (suspected) exposure to COVID-19
CPT/HCPCS: 36415; 70553; 71045; 72148; 72170; 73502; 80048; 80053; 81001; 82550; 83690; 83735; 83880; 84484; 85025; 85610; 85730; 87077; 87086; 87186; 93005; 96374; 96375; 96376; 97163; 97166; 97530; 97535; 99284; 99285; C1776; C9290; J0171; J0690; J0780; J1100; J1170; J1650; J1885; J2060; J2250; J2270; J2405; J2704; J3010

== ENCOUNTER → 2022-11-28 11:55 | Outpatient (CLI) | payer MEDICARE, SELFPAY ==
[2022-11-02 18:48] VITALS: BMI 21.6
--- NOTE | 2022-11-28 12:02 | DI.CT.S_ITS ---
PROCEDURE: CT SACRUM INDICATIONS: Concussion and edema of sacral spinal cord TECHNIQUE: Noncontrast 3 mm thick sections acquired through the sacrum and coccyx, with sagittal and oblique coronal reformats then constructed. For radiation dose reduction, the following was used: automated exposure control. COMPARISON: [facility], MR, MR LUMBAR SPINE WO CON, 11/04/2022, 15:28. FINDINGS: Image quality: Diagnostic. Beam hardening artifacts from left hip prosthesis are seen. Bones: Cortical irregularity and ill-defined area of sclerosis involving lower sacrum at S2 level consistent with MR lumbar spine finding of nondisplaced fracture in this area. No other area of fracture or dislocation. No coccygeal fracture. No suspicious bony lesions. Mild osteoarthritic changes are seen in bilateral sacroiliac joints. No bony erosion or ankylosis is seen. Mild degenerative disc disease in visualized lower lumbar spine is seen. Soft tissues: No presacral masses. Visualized rectum and inferior bowel loops are normal in size and caliber. No pathologic free pelvic fluid. IMPRESSION: 1. Nondisplaced lower sacral fracture at S2 level which is concordant with MRI finding. No other fracture or dislocation is seen. No suspicious bony lesions. Mild bilateral sacroiliac joint osteoarthritis without evidence of ankylosis or bony erosion. 2. No presacral mass. No gross peritoneal free fluid. No abnormal bowel wall thickening. Dictated by: Lenny Burciaga M.D. on 11/28/2022 at 16:16 Approved by: Lenny Burciaga M.D. on 11/28/2022 at 16:26
== END ==
PROVIDERS: PCP Student in an Organized Health Care Education/Training Program; Referring Provider Internal Medicine Gastroenterology; Visit Provider Internal Medicine Gastroenterology
DX: S32.10XA Unspecified fracture of sacrum, initial encounter for closed fracture (principal); S34 Injury of lumbar and sacral spinal cord and nerves at abdomen, lower back and pelvis level; M47.818 Spondylosis without myelopathy or radiculopathy, sacral and sacrococcygeal region; M51.36 Other intervertebral disc degeneration, lumbar region; R29.6 Repeated falls
CPT/HCPCS: 72131

== ENCOUNTER 2023-01-29 10:00 | Outpatient (RCR) | payer MEDICARE, SELFPAY ==
[2022-11-02 18:48] VITALS: BMI 21.6
--- NOTE | 2023-01-07 12:40 | PT.OIE ---
Current Diagnoses Pain in left hip (01/07/23) Fracture of unspecified part of neck of left femur, subsequent encounter for closed fracture with routine healing (01/07/23) Past Medical History (Last Reviewed 11/05/22 @ 15:30 by Chris Corea PA-C) Hypertension Methadone maintenance therapy patient Visit Care Team Role Provider Type Jodi Duarte DO Attending Provider Non-Staff Family Provider Primary Care Provider Referring Provider Specialty: Internal Medicine Address: [address] [place] [address], [address] Email: Physical Therapy Initial Evaluation PT-OP-A Visit Information Start: 01/07/23 09:56 Freq: Status: Active Protocol: Document 01/07/23 09:56 AB (Rec: 01/07/23 12:40 AB [id number]) Out-Patient Physical Therapy Visit Information Visit Information Visit Type Initial Evaluation Visit Start Time 10:10 Visit Stop Time 10:55 Total Visit Minutes 45 Visit Number 1 Number of BRIDGE DESIGN ENGINEER Visits 0 Evaluation Information Evaluation Date 01/07/23 Precautions Precautions Hx of stroke, nondisplaced S2 fracture per CT on 11/28/22, HTN, hx of drug abuse PT-OP-B Current Condition Start: 01/07/23 09:56 Freq: Status: Active Protocol: Document 01/07/23 09:56 AB (Rec: 01/07/23 12:40 AB [id number]) Current Condition History of Current Condition Onset Date 11/03/22 Current Complaints Pain in left hip (4/10 at rest , 6/10) with movement. History of Current Condition The pt is s/p left ROSS ( posterior approach) on 11/03/22 secondary to fall that caused a left femoral neck fracture. Prior to surgery, the pt reports she was having left foot drop and significant imbalance leading to several falls in the span of a month. After being discharged, the pt went to SNF for about 2.5 weeks to recieved further therapy. The pt did not recieve HH PT, as her roommate does not want strangers in the home. The pt also reports a couple of falls since her last post op follow up, but states no injury occurred from these falls. Currently, she states she has difficulty walking, standing for prolonged periods due to pain. She also reports a high fear of falling due to the number of falls she has had, and often furniture surfs in her home. She is unable to use FWW in her current home due to limited space. Prior Treatments and Tests SNF after dsicharged from hospital Future Testing and Treatments Planned Next post op follow up is next week. Prior Functional Status Baseline Function- ADL's Modified Independent Baseline Function- Mobility Modified Independent Baseline Function- Gait Began using SPC due to falls Baseline Function- Work/School Retired Current Functional Impairments (Reported) Functional Limitations- ADL's Must sit to get dressed; feels unsafe when showering Functional Limitations- Mobility/Gait Uses SPC or furniture surfs for short distances. Avoids longer distances due to imbalance and pain PT-OP-C Subjective Start: 01/07/23 09:56 Freq: Status: Active Protocol: Document 01/07/23 09:56 AB (Rec: 01/07/23 12:40 AB [id number]) OP-PT Subjective Patient Comments Patient Comments See hx of current condition Patient Questionnaires Lower Extremity Functional Scale LEFS Score 21/80 LEFS Impairment 60 to 79% Impaired (Score 17- 31) PT-OP-G Mobility & Gait Start: 01/07/23 09:56 Freq: Status: Active Protocol: Document 01/07/23 09:56 AB (Rec: 01/07/23 12:40 AB [id number]) OP Mobility Evaluation Bed Mobility Rolling IND Supine to and from Sit IND, but causes increased pain due to LBP Transfers Sit to Stand IND with use of UEs OP Gait Assessment Gait Gait Assistance Required: Standby Assistance,1 Person Assist Distance (Feet) 50 Assistive Devices Assistive Device Straight Cane Gait Deviations General Gait Pattern Antalgic,Decreased Stride Length,Decreased Feet Clearance,Narrow Based Gait, Step-to Gait Factors Limiting Gait Function Factors Limiting Gait Function Decreased Activity Tolerance, Decreased Strength,Limited Range of Motion,Pain,Poor Balance Comments Gait Comments Pt ambulates with shuffling, antalgic, and at times step to gait pattern due to bilateral hip ROM limitations. Hip IR is noted when in stance, though this may be due to weakness. PT-OP-K Range of Motion Start: 01/07/23 09:56 Freq: Status: Active Protocol: Document 01/07/23 09:56 AB (Rec: 01/07/23 12:40 AB [id number]) Hip Goniometric Range of Motion Hip Right Active Flexion w/Knee Flexed 106 Extension 0 Internal Rotation 20 External Rotation 22 Left Active Flexion w/Knee Flexed 100 Extension 0 Internal Rotation 25 External Rotation 0 PT-OP-M Strength Start: 01/07/23 09:56 Freq: Status: Active Protocol: Document 01/07/23 09:56 (Rec: 01/07/23 12:40 AB [id number]) Hip Strength Hip Manual Muscle Testing Right Flexion (L2) 5 Normal Extension (S1) 3 Fair Abduction 4- Good- Adduction 4- Good- External Rotation 3+ Fair+ Internal Rotation 3+ Fair+ Comments Denies pain with all MMT Left Flexion (L2) 4+ Good+ Extension (S1) 3 Fair Abduction 4- Good- Adduction 4- Good- External Rotation 3- Fair- Internal Rotation 3- Fair- Comments Denies pain with all MMT Knee Strength Knee Manual Muscle Testing Right Flexion (S2) 4- Good- Extension (L3) 4+ Good+ Comments Denies pain with all MMT Left Flexion (S2) 4- Good- Extension (L3) 4+ Good+ Comments Denies pain with all MMT Ankle/Foot Strength Ankle and Foot Manual Muscle Testing Right Dorsiflexion (L4) 4 Good Plantarflexion (S1) 4- Good- Inversion 4 Good Eversion (S1) 4 Good Comments Denies pain with all MMT Left Dorsiflexion (L4) 4 Good Plantarflexion (S1) 4- Good- Inversion 4 Good Eversion (S1) 4 Good Comments Denies pain with all MMT PT-OP-T Assessment and Plan Start: 01/07/23 09:56 Freq: Status: Active Protocol: Document 01/07/23 09:56 (Rec: 01/07/23 12:40 [id number]) Physical Therapy Assessment Rehab Potential Rehabilitation Potential Good Evaluation Complexity Number of Personal Factors/Comorbidities 3 or More Number of Body Systems Impaired 1-2 Clinical Presentation at Evaluation Stable Impairments Impairments Activity Tolerance,Balance, Functional Activities, Functional Mobility,Gait,Pain, Posture,ROM,Soft Tissue Mobility,Strength Other Concerns Barriers to Rehabilitation Pt's roommate may not be supportive, time since surgery , extensive history of falls Goals Six Impairment Patient Questionnaire Short Term Goal (STG) LEFS score to improve to 31/80 or better to demonstrate improving subjective report of symptoms and QOL. STG Duration 4 Skilled Nursing Goal (LTG) LEFS score to improve to 45/80 or better to demonstrate improving subjective report of symptoms and QOL. LTG Duration 8 Five Impairment Gait Short Term Goal (STG) Pt to independently ambulate 50 ft with LRAD without shuffling gait pattern to show improving gait mechanics in order to decrease risk for falls. STG Duration 4 Detective Narcotics And Vice Goal (LTG) Pt to independently ambulate 150 ft with LRAD without shuffling and antalgic gait pattern to show improving gait mechanics in order to decrease risk for falls. LTG Duration 8 Four Impairment Hip AROM Short Term Goal (STG) Pt's left hip IR AROM to improve to 30 degrees or better and right hip IR AROM to improve to 25 degrees or better to improve ability to perform functional mobility, ADLs and IADLs. STG Duration 4 Skilled Nursing Goal (LTG) Pt's left hip IR AROM to improve to 35 degrees or better and right hip IR AROM to improve to 30 degrees or better to improve ability to perform functional mobility, ADLs and IADLs. LTG Duration 8 Three Impairment Hip AROM Short Term Goal (STG) Pt's left hip ER AROM to improve to 15 degrees or better and right hip ER AROM to improve to 30 degrees or better to improve ability to perform functional mobility, ADLs and IADLs. STG Duration 4 Skilled Nursing Goal (LTG) Pt's left hip ER AROM to improve to 25 degrees or better and right hip ER AROM to improve to 35 degrees or better to improve ability to perform functional mobility, ADLs and IADLs. LTG Duration 8 Two Impairment Hip AROM Short Term Goal (STG) Pt's left hip flexion AROM to improve to 105 degrees or better and right hip flexion AROM to improve to 115 degrees or better to improve ability to perform functional mobility , ADLs and IADLs. STG Duration 4 Detective Narcotics And Vice Goal (LTG) Pt's left hip flexion AROM to improve to 115 degrees or better and right hip flexion AROM to improve to 125 degrees or better to improve ability to perform functional mobility , ADLs and IADLs. LTG Duration 8 One Impairment Strength Short Term Goal (STG) Pt's gross LE MMT scores to improve to 4/5 or better to demonstrate improving strength in order to improve ability to perform functional mobility such as STS, transfers and ambulation with independence. STG Duration 4 Skilled Nursing Goal (LTG) Pt's gross LE MMT scores to improve to 4+/5 or better to demonstrate improving strength in order to improve ability to perform functional mobility such as STS, transfers and ambulation with independence. LTG Duration 8 Assessment Summary Assessment Maggie Salas is a 67 year old female patient presenting s/p left ROSS performed on 11/03/22 secondary to a fall that caused a left femoral neck fracture. The pt reports continued mobility deficits, weakness and imbalance that is causing a high fear of falls and limits her ability to perform her ADLs and IADLs. Today's PT evaluation revealed bilateral hip AROM deficits ( L>R), muscular weakness (L>R), gait abnormalities and dynamic balance deficits. Based on these findings the pt would greatly benefit from skilled PT to improve these in order to increase her level of function, improve her post surgical outcomes, and to decrease her risk for falls. There are barriers/factors that may limit the pt's rehab potential, however she is motivated to attend therapy in order to improve her level of function. Physical Therapy Plan Frequency and Duration Frequency of Treatment 2x/Week Duration of treatment (weeks) 8 Plan of Care Start Date 01/07/23 Plan of Care End Date 03/04/23 Therapeutic Interventions Therapeutic Interventions Balance Training,Gait Training ,Home Exercise Program,Joint Mobilizations,Manual Therapy, Neuromuscular Re-education, Patient/Caregiver Education, Self-Care/Home Management,Soft Tissue Mobilization,Taping, Therapeutic Activities, Therapeutic Exercises Modalities Cold Pack/Ice Massage,Electric Stimulation,Hot Packs Next Visit Focus/Plan Next Note Type Treatment Note Next Visit Plan Assess Tinnetti, Marte TUG, or 5xSTS as indicated. Establish HEP.
--- NOTE | 2023-01-09 12:31 | PT.OTN ---
Current Diagnoses Pain in left hip (01/09/23) Fracture of unspecified part of neck of left femur, subsequent encounter for closed fracture with routine healing (01/09/23) Physical Therapy Treatment Note PT-OP-A Visit Information Start: 01/07/23 09:56 Freq: Status: Active Protocol: Document 01/09/23 10:06 AB (Rec: 01/09/23 12:27 AB [id number]) Out-Patient Physical Therapy Visit Information Visit Information Visit Type Treatment Note Visit Start Time 10:00 Visit Stop Time 10:45 Total Visit Minutes 45 Visit Number 2 Number of APPLE TURNER Visits 0 Evaluation Information Evaluation Date 01/07/23 PT-OP-B Current Condition Start: 01/07/23 09:56 Freq: Status: Active Protocol: Document 01/07/23 09:56 AB (Rec: 01/07/23 12:40 AB [id number]) Current Condition History of Current Condition Onset Date 11/03/22 Current Complaints Pain in left hip (4/10 at rest , 6/10) with movement. History of Current Condition The pt is s/p left ROSS ( posterior approach) on 11/03/22 secondary to fall that caused a left femoral neck fracture. Prior to surgery, the pt reports she was having left foot drop and significant imbalance leading to several falls in the span of a month. After being discharged, the pt went to SNF for about 2.5 weeks to recieved further therapy. The pt did not recieve HH PT, as her roommate does not want strangers in the home. The pt also reports a couple of falls since her last post op follow up, but states no injury occurred from these falls. Currently, she states she has difficulty walking, standing for prolonged periods due to pain. She also reports a high fear of falling due to the number of falls she has had, and often furniture surfs in her home. She is unable to use FWW in her current home due to limited space. Prior Treatments and Tests SNF after dsicharged from hospital Future Testing and Treatments Planned Next post op follow up is next week. Prior Functional Status Baseline Function- ADL's Modified Independent Baseline Function- Mobility Modified Independent Baseline Function- Gait Began using SPC due to falls Baseline Function- Work/School Retired Current Functional Impairments (Reported) Functional Limitations- ADL's Must sit to get dressed; feels unsafe when showering Functional Limitations- Mobility/Gait Uses SPC or furniture surfs for short distances. Avoids longer distances due to imbalance and pain PT-OP-C Subjective Start: 01/07/23 09:56 Freq: Status: Active Protocol: Document 01/09/23 10:06 AB (Rec: 01/09/23 12:27 AB [id number]) OP-PT Subjective Patient Comments Patient Comments The pt reports she had a long day of walking due to doctors appointments, so is feeling sore and like her balance is off. PT-OP-D Balance Start: 01/07/23 09:56 Freq: Status: Active Protocol: Document 01/09/23 12:27 AB (Rec: 01/09/23 12:31 AB [id number]) Marte Balance Assessment Evaluation Sitting to Standing Ability Independent w/Hands Unsupported Stance Supervision- 2 minutes Sitting Unsupported, Feet on Floor Safely- 2 minutes Standing to Sitting Ability Assist, Control w/Hands Transfer Ability Safely, Hand Use Unsupported Stance- Eyes Closed Safely, 10 seconds Unsupported Stance- Eyes Open Independent, 1 minute Reaching Forward Standing Safely, 5 inches Pick- Up Object From Floor Supervision Look Behind Shoulder - Standing Turns Sideways Only Turning 360 Degrees Turns slowly, but safely Unsupported Stance, Alternating Feet on Assist to Prevent Fall Stair Unsupported Tandem Stance Balance Lost- Step/Stand Unilateral Leg Stance Unable,assist to not fall Total Score Marte Total Score (out of 56 points) 34 Marte Impairment Rating 20 to 39% Impaired (Score 34- 44) PT-OP-E Functional Tests Start: 01/07/23 09:56 Freq: Status: Active Protocol: Document 01/09/23 12:27 AB (Rec: 01/09/23 12:31 AB [id number]) Functional Tests Five Times Sit to Stand Test Score 24.01 sec Comments with use of BUEs Timed Up and Go (TUG) Score 41.63 sec Comments with SPC PT-OP-G Mobility & Gait Start: 01/07/23 09:56 Freq: Status: Active Protocol: Document 01/07/23 09:56 AB (Rec: 01/07/23 12:40 AB [id number]) OP Mobility Evaluation Bed Mobility Rolling IND Supine to and from Sit IND, but causes increased pain due to LBP Transfers Sit to Stand IND with use of UEs OP Gait Assessment Gait Gait Assistance Required: Standby Assistance,1 Person Assist Distance (Feet) 50 Assistive Devices Assistive Device Straight Cane Gait Deviations General Gait Pattern Antalgic,Decreased Stride Length,Decreased Feet Clearance,Narrow Based Gait, Step-to Gait Factors Limiting Gait Function Factors Limiting Gait Function Decreased Activity Tolerance, Decreased Strength,Limited Range of Motion,Pain,Poor Balance Comments Gait Comments Pt ambulates with shuffling, antalgic, and at times step to gait pattern due to bilateral hip ROM limitations. Hip IR is noted when in stance, though this may be due to weakness. PT-OP-K Range of Motion Start: 01/07/23 09:56 Freq: Status: Active Protocol: Document 01/07/23 09:56 AB (Rec: 01/07/23 12:40 AB [id number]) Hip Goniometric Range of Motion Hip Right Active Flexion w/Knee Flexed 106 Extension 0 Internal Rotation 20 External Rotation 22 Left Active Flexion w/Knee Flexed 100 Extension 0 Internal Rotation 25 External Rotation 0 PT-OP-M Strength Start: 01/07/23 09:56 Freq: Status: Active Protocol: Document 01/07/23 09:56 AB (Rec: 01/07/23 12:40 AB [id number]) Hip Strength Hip Manual Muscle Testing Right Flexion (L2) 5 Normal Extension (S1) 3 Fair Abduction 4- Good- Adduction 4- Good- External Rotation 3+ Fair+ Internal Rotation 3+ Fair+ Comments Denies pain with all MMT Left Flexion (L2) 4+ Good+ Extension (S1) 3 Fair Abduction 4- Good- Adduction 4- Good- External Rotation 3- Fair- Internal Rotation 3- Fair- Comments Denies pain with all MMT Knee Strength Knee Manual Muscle Testing Right Flexion (S2) 4- Good- Extension (L3) 4+ Good+ Comments Denies pain with all MMT Left Flexion (S2) 4- Good- Extension (L3) 4+ Good+ Comments Denies pain with all MMT Ankle/Foot Strength Ankle and Foot Manual Muscle Testing Right Dorsiflexion (L4) 4 Good Plantarflexion (S1) 4- Good- Inversion 4 Good Eversion (S1) 4 Good Comments Denies pain with all MMT Left Dorsiflexion (L4) 4 Good Plantarflexion (S1) 4- Good- Inversion 4 Good Eversion (S1) 4 Good Comments Denies pain with all MMT PT-OP-Q Treatments Start: 01/07/23 09:56 Freq: Status: Active Protocol: Document 01/09/23 10:06 AB (Rec: 01/09/23 12:27 AB [id number]) Cardio Equipment Recumbent Bicycle Duration (Minutes) 5 Resistance 0 Seat Position 1 Therapeutic Exercises Sitting Exercises Marching Side bilateral Reps/Minutes 2x10 ea Clamshells Sitting Exercise Name Hip ABD isometric (seated clamshells) Side bilateral Reps/Minutes 2x10, 3 sec holds Hip ADD Sitting Exercise Name Hip ADD pillow squeeze Side bilateral Equipment Used small blue ball Reps/Minutes 2x10, 3 sec holds Therapeutic Activity Therapeutic Activity STS Name STS Reps/Minutes 2x5 Comments Using BUEs for support; focus on proper foot placement and avoiding left hip IR; Also assessed TUG, 5xSTS, Marte Gait Training Gait Activity Normal gait Description Normal gait walking to and from gym Device Used SPC Level of Assistance IND Surface even Treatment Focus 3pt gait pattern, heel-toe pattern, proper placement of SPC Comments Pt ambulates with SPC too far in front of her, with left hip internally rotated and with antalgic step-to pattern PT-OP-T Assessment and Plan Start: 01/07/23 09:56 Freq: Status: Active Protocol: Document 01/09/23 10:06 AB (Rec: 01/09/23 12:27 AB [id number]) Physical Therapy Assessment Goals Six Impairment Patient Questionnaire Short Term Goal (STG) LEFS score to improve to 31/80 or better to demonstrate improving subjective report of symptoms and QOL. STG Duration 4 On Site Coordinator Goal (LTG) LEFS score to improve to 45/80 or better to demonstrate improving subjective report of symptoms and QOL. LTG Duration 8 Five Impairment Gait Short Term Goal (STG) Pt to independently ambulate 50 ft with LRAD without shuffling gait pattern to show improving gait mechanics in order to decrease risk for falls. STG Duration 4 On Site Coordinator Goal (LTG) Pt to independently ambulate 150 ft with LRAD without shuffling and antalgic gait pattern to show improving gait mechanics in order to decrease risk for falls. LTG Duration 8 Four Impairment Hip AROM Short Term Goal (STG) Pt's left hip IR AROM to improve to 30 degrees or better and right hip IR AROM to improve to 25 degrees or better to improve ability to perform functional mobility, ADLs and IADLs. STG Duration 4 On Site Coordinator Goal (LTG) Pt's left hip IR AROM to improve to 35 degrees or better and right hip IR AROM to improve to 30 degrees or better to improve ability to perform functional mobility, ADLs and IADLs. LTG Duration 8 Three Impairment Hip AROM Short Term Goal (STG) Pt's left hip ER AROM to improve to 15 degrees or better and right hip ER AROM to improve to 30 degrees or better to improve ability to perform functional mobility, ADLs and IADLs. STG Duration 4 On Site Coordinator Goal (LTG) Pt's left hip ER AROM to improve to 25 degrees or better and right hip ER AROM to improve to 35 degrees or better to improve ability to perform functional mobility, ADLs and IADLs. LTG Duration 8 Two Impairment Hip AROM Short Term Goal (STG) Pt's left hip flexion AROM to improve to 105 degrees or better and right hip flexion AROM to improve to 115 degrees or better to improve ability to perform functional mobility , ADLs and IADLs. STG Duration 4 Intermediate Goal (LTG) Pt's left hip flexion AROM to improve to 115 degrees or better and right hip flexion AROM to improve to 125 degrees or better to improve ability to perform functional mobility , ADLs and IADLs. LTG Duration 8 One Impairment Strength Short Term Goal (STG) Pt's gross LE MMT scores to improve to 4/5 or better to demonstrate improving strength in order to improve ability to perform functional mobility such as STS, transfers and ambulation with independence. STG Duration 4 Intermediate Goal (LTG) Pt's gross LE MMT scores to improve to 4+/5 or better to demonstrate improving strength in order to improve ability to perform functional mobility such as STS, transfers and ambulation with independence. LTG Duration 8 Assessment Summary Assessment Due to findings from last visit, TUG, 5xSTS, and Marte Balance Test were performed today to further determine the pt's current level of function. Each of these tests confirmed that the pt is at a high fall risk. An HEP was established today based on findings from eval and from today, with the focus on improving hip strength and mobility with exercises that are accessible for her. STS were also added to HEP due to pt relying on UEs for support. With ambulation and STS, the pt demonstrates increased left hip IR which also causes dynamic left knee valgus. The pt benefits from skilled PT to improve her symptoms and reduce fall risk. Physical Therapy Plan Frequency and Duration Frequency of Treatment 2x/Week Duration of treatment (weeks) 8 Plan of Care Start Date 01/07/23 Plan of Care End Date 03/04/23 Therapeutic Interventions Therapeutic Interventions Balance Training,Gait Training ,Home Exercise Program,Joint Mobilizations,Manual Therapy, Neuromuscular Re-education, Patient/Caregiver Education, Self-Care/Home Management,Soft Tissue Mobilization,Taping, Therapeutic Activities, Therapeutic Exercises Modalities Cold Pack/Ice Massage,Electric Stimulation,Hot Packs Next Visit Focus/Plan Next Note Type Treatment Note Next Visit Plan Review HEP. Add hip mobility and strength exercises as tolerated. Include gait and balance training.
--- NOTE | 2023-01-16 09:16 | PT-OP ANOTE ---
Addendum entered and electronically signed by Darlin Hastings PTA 01/16/23 09:20: FLAME CUTTER also reminded of next scheduled appt, pt confirmed. Original Note: Pt DNS for appt, FLAME CUTTER called and pt stated issues with bottom hoop driver transportation today and didn't have [employer] # to call to cancel. FLAME CUTTER provided [employer] phone # [phone] for future communications.
--- NOTE | 2023-01-20 12:46 | PT.OTN ---
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 History of Current Condition The pt is s/p left ROSS ( posterior approach) on 11/03/22 secondary to fall that caused a left femoral neck fracture. Prior to surgery, the pt reports she was having left foot drop and significant imbalance leading to several falls in the span of a month. After being discharged, the pt went to SNF for about 2.5 weeks to recieved further therapy. The pt did not recieve HH PT, as her roommate does not want strangers in the home. The pt also reports a couple of falls since her last post op follow up, but states no injury occurred from these falls. Currently, she states she has difficulty walking, standing for prolonged periods due to pain. She also reports a high fear of falling due to the number of falls she has had, and often furniture surfs in her home. She is unable to use FWW in her current home due to limited space. Prior Treatments and Tests SNF after dsicharged from hospital Future Testing and Treatments Planned Next post op follow up is next week. Prior Functional Status Baseline Function- ADL's Modified Independent Baseline Function- Mobility Modified Independent Baseline Function- Gait Began using SPC due to falls Baseline Function- Work/School Retired Current Functional Impairments (Reported) Functional Limitations- ADL's Must sit to get dressed; feels unsafe when showering Functional Limitations- Mobility/Gait Uses SPC or furniture surfs for short distances. Avoids longer distances due to imbalance and pain PT-OP-C Subjective Start: 01/07/23 09:56 Freq: Status: Active Protocol: Document 01/20/23 12:08 SP (Rec: 01/20/23 12:49 SP [id number]) OP-PT Subjective Patient Comments Patient Comments Pt arrives for 3rd PT tx using her FWW, demonstrates rounded flexed posture, decreased stride and foot clearance. States compliant with HEP and use HOs given. She said tired after last tx but was ok. PT-OP-D Balance Start: 01/07/23 09:56 Freq: Status: Active Protocol: Document 01/09/23 12:27 AB (Rec: 01/09/23 12:31 AB [id number]) Marte Balance Assessment Evaluation Sitting to Standing Ability Independent w/Hands Unsupported Stance Supervision- 2 minutes Sitting Unsupported, Feet on Floor Safely- 2 minutes Standing to Sitting Ability Assist, Control w/Hands Transfer Ability Safely, Hand Use Unsupported Stance- Eyes Closed Safely, 10 seconds Unsupported Stance- Eyes Open Independent, 1 minute Reaching Forward Standing Safely, 5 inches Pick- Up Object From Floor Supervision Look Behind Shoulder - Standing Turns Sideways Only Turning 360 Degrees Turns slowly, but safely Unsupported Stance, Alternating Feet on Assist to Prevent Fall Stair Unsupported Tandem Stance Balance Lost- Step/Stand Unilateral Leg Stance Unable,assist to not fall Total Score Marte Total Score (out of 56 points) 34 Marte Impairment Rating 20 to 39% Impaired (Score 34- 44) PT-OP-E Functional Tests Start: 01/07/23 09:56 Freq: Status: Active Protocol: Document 01/09/23 12:27 AB (Rec: 01/09/23 12:31 AB [id number]) Functional Tests Five Times Sit to Stand Test Score 24.01 sec Comments with use of BUEs Timed Up and Go (TUG) Score 41.63 sec Comments with SPC PT-OP-G Mobility & Gait Start: 01/07/23 09:56 Freq: Status: Active Protocol: Document 08/29/23 09:56 AB (Rec: 01/07/23 12:40 AB [id number]) OP Mobility Evaluation Bed Mobility Rolling IND Supine to and from Sit IND, but causes increased pain due to LBP Transfers Sit to Stand IND with use of UEs OP Gait Assessment Gait Gait Assistance Required: Standby Assistance,1 Person Assist Distance (Feet) 50 Assistive Devices Assistive Device Straight Cane Gait Deviations General Gait Pattern Antalgic,Decreased Stride Length,Decreased Feet Clearance,Narrow Based Gait, Step-to Gait Factors Limiting Gait Function Factors Limiting Gait Function Decreased Activity Tolerance, Decreased Strength,Limited Range of Motion,Pain,Poor Balance Comments Gait Comments Pt ambulates with shuffling, antalgic, and at times step to gait pattern due to bilateral hip ROM limitations. Hip IR is noted when in stance, though this may be due to weakness. PT-OP-K Range of Motion Start: 01/07/23 09:56 Freq: Status: Active Protocol: Document 01/07/23 09:56 AB (Rec: 01/07/23 12:40 AB [id number]) Hip Goniometric Range of Motion Hip Right Active Flexion w/Knee Flexed 106 Extension 0 Internal Rotation 20 External Rotation 22 Left Active Flexion w/Knee Flexed 100 Extension 0 Internal Rotation 25 External Rotation 0 PT-OP-M Strength Start: 01/07/23 09:56 Freq: Status: Active Protocol: Document 01/07/23 09:56 AB (Rec: 01/07/23 12:40 AB [id number]) Hip Strength Hip Manual Muscle Testing Right Flexion (L2) 5 Normal Extension (S1) 3 Fair Abduction 4- Good- Adduction 4- Good- External Rotation 3+ Fair+ Internal Rotation 3+ Fair+ Comments Denies pain with all MMT Left Flexion (L2) 4+ Good+ Extension (S1) 3 Fair Abduction 4- Good- Adduction 4- Good- External Rotation 3- Fair- Internal Rotation 3- Fair- Comments Denies pain with all MMT Knee Strength Knee Manual Muscle Testing Right Flexion (S2) 4- Good- Extension (L3) 4+ Good+ Comments Denies pain with all MMT Left Flexion (S2) 4- Good- Extension (L3) 4+ Good+ Comments Denies pain with all MMT Ankle/Foot Strength Ankle and Foot Manual Muscle Testing Right Dorsiflexion (L4) 4 Good Plantarflexion (S1) 4- Good- Inversion 4 Good Eversion (S1) 4 Good Comments Denies pain with all MMT Left Dorsiflexion (L4) 4 Good Plantarflexion (S1) 4- Good- Inversion 4 Good Eversion (S1) 4 Good Comments Denies pain with all MMT PT-OP-Q Treatments Start: 01/07/23 09:56 Freq: Status: Active Protocol: Document 01/20/23 12:08 SP (Rec: 01/20/23 12:49 SP [id number]) Cardio Equipment Recumbent Bicycle Duration (Minutes) 4 Resistance 0 Seat Position 1 Other cued hip abd with feet. Therapeutic Exercises Sitting Exercises Marching Side bilateral Resistance AROM Reps/Minutes 2x10 ea Comments cued knees increase hip abd- hand between no touching Clamshells Sitting Exercise Name Hip ABD isometric (seated clamshells) Side bilateral Resistance TB #1 peach (straight band wrapped around thighs held) Reps/Minutes 3x 10, 3 sec holds Comments cued L heel down, 1 LE at time Hip ADD Sitting Exercise Name Hip ADD squeeze (paper towel/ toilet paper roll home) Side bilateral Equipment Used small green ball, sit front seat w/ good posture Reps/Minutes 2x10, 3 sec holds Comments tactile cues heels down, // feet and under knees. Standing Exercises side stepping Side bilateral Resistance AROM Reps/Minutes 10 ft x3 laps Comments intermittent cues for elongated posture, LLE trail LE clearance Gait Training Gait Activity Normal gait Description Normal gait walking to and from gym Device Used SPC, FWW Level of Assistance SBA SPC, I FWW Surface even Distance/Duration 20 ft x3 laps w/ SPC, FWW to/ from gym 50 ft x2 Treatment Focus 3<>2pt gait pattern, heel-toe pattern, proper placement of SPC Comments ed for SPC closer little fwd and lateral R foot taller posturing, marching step pivot turn, LLE foot clearance improves with reps. Ed/cues for taller posturing, proximity to FWW and receiprocal stepping for normalizing gait, improving posture and stability. PT-OP-T Assessment and Plan Start: 01/07/23 09:56 Freq: Status: Active Protocol: Document 01/20/23 12:08 SP (Rec: 01/20/23 12:49 SP [id number]) Physical Therapy Assessment Goals Six Impairment Patient Questionnaire Short Term Goal (STG) LEFS score to improve to 31/80 or better to demonstrate improving subjective report of symptoms and QOL. STG Duration 4 Postulant Goal (LTG) LEFS score to improve to 45/80 or better to demonstrate improving subjective report of symptoms and QOL. LTG Duration 8 Five Impairment Gait Short Term Goal (STG) Pt to independently ambulate 50 ft with LRAD without shuffling gait pattern to show improving gait mechanics in order to decrease risk for falls. STG Duration 4 Postulant Goal (LTG) Pt to independently ambulate 150 ft with LRAD without shuffling and antalgic gait pattern to show improving gait mechanics in order to decrease risk for falls. LTG Duration 8 Four Impairment Hip AROM Short Term Goal (STG) Pt's left hip IR AROM to improve to 30 degrees or better and right hip IR AROM to improve to 25 degrees or better to improve ability to perform functional mobility, ADLs and IADLs. STG Duration 4 Usp Goal (LTG) Pt's left hip IR AROM to improve to 35 degrees or better and right hip IR AROM to improve to 30 degrees or better to improve ability to perform functional mobility, ADLs and IADLs. LTG Duration 8 Three Impairment Hip AROM Short Term Goal (STG) Pt's left hip ER AROM to improve to 15 degrees or better and right hip ER AROM to improve to 30 degrees or better to improve ability to perform functional mobility, ADLs and IADLs. STG Duration 4 Postulant Goal (LTG) Pt's left hip ER AROM to improve to 25 degrees or better and right hip ER AROM to improve to 35 degrees or better to improve ability to perform functional mobility, ADLs and IADLs. LTG Duration 8 Two Impairment Hip AROM Short Term Goal (STG) Pt's left hip flexion AROM to improve to 105 degrees or better and right hip flexion AROM to improve to 115 degrees or better to improve ability to perform functional mobility , ADLs and IADLs. STG Duration 4 Usp Goal (LTG) Pt's left hip flexion AROM to improve to 115 degrees or better and right hip flexion AROM to improve to 125 degrees or better to improve ability to perform functional mobility , ADLs and IADLs. LTG Duration 8 One Impairment Strength Short Term Goal (STG) Pt's gross LE MMT scores to improve to 4/5 or better to demonstrate improving strength in order to improve ability to perform functional mobility such as STS, transfers and ambulation with independence. STG Duration 4 Postulant Goal (LTG) Pt's gross LE MMT scores to improve to 4+/5 or better to demonstrate improving strength in order to improve ability to perform functional mobility such as STS, transfers and ambulation with independence. LTG Duration 8 Assessment Summary Assessment Pt improved seated L hip abd against resistance this tx, cued for TB set up and perform LLE individually. SURGICAL GARMENT ASSEMBLY SUPERVISOR suggested use of toilet paper/ paper towel roll for isometric adduction at home to increase space between BLEs. Improved foot clearance during side stepping with cues for elevated posturing and awareness of lifting LLE when lead and trails, able to decrease with UE support on// bars today. Pt challenged with SPC positioning closer, cued little forward outside of RLE improved with posture step to patterning. Will work to progress receiprocal stepping w/ SPC. Ed cues end tx to elevate posturing walking with FWW step over step will take time next to improve. Physical Therapy Plan Frequency and Duration Frequency of Treatment 2x/Week Duration of treatment (weeks) 8 Plan of Care Start Date 01/07/23 Plan of Care End Date 03/04/23 Therapeutic Interventions Therapeutic Interventions Balance Training,Gait Training ,Home Exercise Program,Joint Mobilizations,Manual Therapy, Neuromuscular Re-education, Patient/Caregiver Education, Self-Care/Home Management,Soft Tissue Mobilization,Taping, Therapeutic Activities, Therapeutic Exercises Modalities Cold Pack/Ice Massage,Electric Stimulation,Hot Packs Next Visit Focus/Plan Next Note Type Treatment Note Next Visit Plan Review HEP. Add hip mobility and strength exercises as tolerated: side stepping, hip abd/ext, morales stepping. Include gait and balance training.
--- NOTE | 2023-01-22 13:33 | PT.OTN ---
Current Diagnoses Pain in left hip (01/22/23) Fracture of unspecified part of neck of left femur, subsequent encounter for closed fracture with routine healing (01/22/23) Physical Therapy Treatment Note PT-OP-A Visit Information Start: 01/07/23 09:56 Freq: Status: Active Protocol: Document 01/22/23 12:52 SP (Rec: 01/22/23 13:34 SP [id number]) Out-Patient Physical Therapy Visit Information Visit Information Visit Type Treatment Note Visit Start Time 12:52 Visit Stop Time 13:33 Total Visit Minutes 41 Visit Number 4 Number of SYSTEM ENGINEER Visits 2 Evaluation Information Evaluation Date 01/07/23 Precautions Precautions Hx of stroke, nondisplaced S2 fracture per CT on 11/28/22, HTN, hx of drug abuse PT-OP-B Current Condition Start: 01/07/23 09:56 Freq: Status: Active Protocol: Document 01/07/23 09:56 AB (Rec: 01/07/23 12:40 AB [id number]) Current Condition History of Current Condition Onset Date 11/03/22 Current Complaints Pain in left hip (4/10 at rest , 6/10) with movement. History of Current Condition The pt is s/p left ROSS ( posterior approach) on 11/03/22 secondary to fall that caused a left femoral neck fracture. Prior to surgery, the pt reports she was having left foot drop and significant imbalance leading to several falls in the span of a month. After being discharged, the pt went to SNF for about 2.5 weeks to recieved further therapy. The pt did not recieve HH PT, as her roommate does not want strangers in the home. The pt also reports a couple of falls since her last post op follow up, but states no injury occurred from these falls. Currently, she states she has difficulty walking, standing for prolonged periods due to pain. She also reports a high fear of falling due to the number of falls she has had, and often furniture surfs in her home. She is unable to use FWW in her current home due to limited space. Prior Treatments and Tests SNF after dsicharged from hospital Future Testing and Treatments Planned Next post op follow up is next week. Prior Functional Status Baseline Function- ADL's Modified Independent Baseline Function- Mobility Modified Independent Baseline Function- Gait Began using SPC due to falls Baseline Function- Work/School Retired Current Functional Impairments (Reported) Functional Limitations- ADL's Must sit to get dressed; feels unsafe when showering Functional Limitations- Mobility/Gait Uses SPC or furniture surfs for short distances. Avoids longer distances due to imbalance and pain PT-OP-C Subjective Start: 01/07/23 09:56 Freq: Status: Active Protocol: Document 01/22/23 12:52 SP (Rec: 01/22/23 13:34 SP [id number]) OP-PT Subjective Patient Comments Patient Comments Pt reports has follow up Dr licona (forgot which one maybe [facility]) tomorrow. PT-OP-D Balance Start: 01/07/23 09:56 Freq: Status: Active Protocol: Document 01/09/23 12:27 AB (Rec: 01/09/23 12:31 AB [id number]) Marte Balance Assessment Evaluation Sitting to Standing Ability Independent w/Hands Unsupported Stance Supervision- 2 minutes Sitting Unsupported, Feet on Floor Safely- 2 minutes Standing to Sitting Ability Assist, Control w/Hands Transfer Ability Safely, Hand Use Unsupported Stance- Eyes Closed Safely, 10 seconds Unsupported Stance- Eyes Open Independent, 1 minute Reaching Forward Standing Safely, 5 inches Pick- Up Object From Floor Supervision Look Behind Shoulder - Standing Turns Sideways Only Turning 360 Degrees Turns slowly, but safely Unsupported Stance, Alternating Feet on Assist to Prevent Fall Stair Unsupported Tandem Stance Balance Lost- Step/Stand Unilateral Leg Stance Unable,assist to not fall Total Score Marte Total Score (out of 56 points) 34 Marte Impairment Rating 20 to 39% Impaired (Score 34- 44) PT-OP-E Functional Tests Start: 01/07/23 09:56 Freq: Status: Active Protocol: Document 01/09/23 12:27 AB (Rec: 01/09/23 12:31 AB [id number]) Functional Tests Five Times Sit to Stand Test Score 24.01 sec Comments with use of BUEs Timed Up and Go (TUG) Score 41.63 sec Comments with SPC PT-OP-G Mobility & Gait Start: 01/07/23 09:56 Freq: Status: Active Protocol: Document 01/07/23 09:56 AB (Rec: 01/07/23 12:40 AB [id number]) OP Mobility Evaluation Bed Mobility Rolling IND Supine to and from Sit IND, but causes increased pain due to LBP Transfers Sit to Stand IND with use of UEs OP Gait Assessment Gait Gait Assistance Required: Standby Assistance,1 Person Assist Distance (Feet) 50 Assistive Devices Assistive Device Straight Cane Gait Deviations General Gait Pattern Antalgic,Decreased Stride Length,Decreased Feet Clearance,Narrow Based Gait, Step-to Gait Factors Limiting Gait Function Factors Limiting Gait Function Decreased Activity Tolerance, Decreased Strength,Limited Range of Motion,Pain,Poor Balance Comments Gait Comments Pt ambulates with shuffling, antalgic, and at times step to gait pattern due to bilateral hip ROM limitations. Hip IR is noted when in stance, though this may be due to weakness. PT-OP-K Range of Motion Start: 01/07/23 09:56 Freq: Status: Active Protocol: Document 01/07/23 09:56 AB (Rec: 01/07/23 12:40 AB [id number]) Hip Goniometric Range of Motion Hip Right Active Flexion w/Knee Flexed 106 Extension 0 Internal Rotation 20 External Rotation 22 Left Active Flexion w/Knee Flexed 100 Extension 0 Internal Rotation 25 External Rotation 0 PT-OP-M Strength Start: 01/07/23 09:56 Freq: Status: Active Protocol: Document 01/07/23 09:56 AB (Rec: 01/07/23 12:40 AB [id number]) Hip Strength Hip Manual Muscle Testing Right Flexion (L2) 5 Normal Extension (S1) 3 Fair Abduction 4- Good- Adduction 4- Good- External Rotation 3+ Fair+ Internal Rotation 3+ Fair+ Comments Denies pain with all MMT Left Flexion (L2) 4+ Good+ Extension (S1) 3 Fair Abduction 4- Good- Adduction 4- Good- External Rotation 3- Fair- Internal Rotation 3- Fair- Comments Denies pain with all MMT Knee Strength Knee Manual Muscle Testing Right Flexion (S2) 4- Good- Extension (L3) 4+ Good+ Comments Denies pain with all MMT Left Flexion (S2) 4- Good- Extension (L3) 4+ Good+ Comments Denies pain with all MMT Ankle/Foot Strength Ankle and Foot Manual Muscle Testing Right Dorsiflexion (L4) 4 Good Plantarflexion (S1) 4- Good- Inversion 4 Good Eversion (S1) 4 Good Comments Denies pain with all MMT Left Dorsiflexion (L4) 4 Good Plantarflexion (S1) 4- Good- Inversion 4 Good Eversion (S1) 4 Good Comments Denies pain with all MMT PT-OP-Q Treatments Start: 01/07/23 09:56 Freq: Status: Active Protocol: Document 01/22/23 12:52 SP (Rec: 01/22/23 13:34 SP [id number]) Therapeutic Exercises Standing Exercises hip extension Standing Exercise Name initiated in PT Side bilateral Resistance AROM Equipment Used BUE rail support Reps/Minutes x7 reps Comments max cues for TKE and elevated posturing, challenged maintaining posture HR TR Standing Exercise Name trialed in PT Side bilateral Equipment Used rail support Reps/Minutes 2x10 Comments cued not wt shift back during TR- improved DF with reps marching Standing Exercise Name added to HEP Equipment Used facing rail Reps/Minutes 2x10 Comments cued increase LLE raise, RLE more abd alignment side stepping Standing Exercise Name inPT Side bilateral Resistance AROM Equipment Used hands hover rail> light 1 contact last lap Reps/Minutes 10 ft x3 laps Comments intermittent cues for elongated posture, LLE trail LE clearance march step Therapeutic Activity Therapeutic Activity transfer training Name during gait w/ SPC and FWW Reps/Minutes 8 min Comments 1. positioning of purse cross trunk vs on inside of FWW 2. pivot turn with march LLE stepping clearance, back up fully, use UEs support slow descend safety STS Name STS Reps/Minutes 2x5 Comments Using BUEs for support, scoot fwd Gait Training Gait Activity Normal gait Description Normal gait walking to and from gym Device Used SPC, FWW Level of Assistance SBA SPC, I FWW Surface even Distance/Duration 20 ft x4 laps w/ SPC between / /bar and lrg chair, FWW to/ from gym 50 ft x2 Treatment Focus 3>2pt gait pattern, heel-toe pattern, proper placement of SPC Comments ed for SPC closer little fwd and lateral R foot, taller posturing, marching step during pivot turn, LLE foot clearance improves with reps. Ed/cues for taller posturing, proximity to FWW and receiprocal stepping with larger LLE step for normalizing gait, improved posture and stability. PT-OP-T Assessment and Plan Start: 01/07/23 09:56 Freq: Status: Active Protocol: Document 01/22/23 12:52 SP (Rec: 01/22/23 13:34 SP [id number]) Physical Therapy Assessment Goals Six Impairment Patient Questionnaire Short Term Goal (STG) LEFS score to improve to 31/80 or better to demonstrate improving subjective report of symptoms and QOL. STG Duration 4 Prison Goal (LTG) LEFS score to improve to 45/80 or better to demonstrate improving subjective report of symptoms and QOL. LTG Duration 8 Five Impairment Gait Short Term Goal (STG) Pt to independently ambulate 50 ft with LRAD without shuffling gait pattern to show improving gait mechanics in order to decrease risk for falls. STG Duration 4 [employer] Worker Goal (LTG) Pt to independently ambulate 150 ft with LRAD without shuffling and antalgic gait pattern to show improving gait mechanics in order to decrease risk for falls. LTG Duration 8 Four Impairment Hip AROM Short Term Goal (STG) Pt's left hip IR AROM to improve to 30 degrees or better and right hip IR AROM to improve to 25 degrees or better to improve ability to perform functional mobility, ADLs and IADLs. STG Duration 4 [employer] Worker Goal (LTG) Pt's left hip IR AROM to improve to 35 degrees or better and right hip IR AROM to improve to 30 degrees or better to improve ability to perform functional mobility, ADLs and IADLs. LTG Duration 8 Three Impairment Hip AROM Short Term Goal (STG) Pt's left hip ER AROM to improve to 15 degrees or better and right hip ER AROM to improve to 30 degrees or better to improve ability to perform functional mobility, ADLs and IADLs. STG Duration 4 [employer] Worker Goal (LTG) Pt's left hip ER AROM to improve to 25 degrees or better and right hip ER AROM to improve to 35 degrees or better to improve ability to perform functional mobility, ADLs and IADLs. LTG Duration 8 Two Impairment Hip AROM Short Term Goal (STG) Pt's left hip flexion AROM to improve to 105 degrees or better and right hip flexion AROM to improve to 115 degrees or better to improve ability to perform functional mobility , ADLs and IADLs. STG Duration 4 Prison Goal (LTG) Pt's left hip flexion AROM to improve to 115 degrees or better and right hip flexion AROM to improve to 125 degrees or better to improve ability to perform functional mobility , ADLs and IADLs. LTG Duration 8 One Impairment Strength Short Term Goal (STG) Pt's gross LE MMT scores to improve to 4/5 or better to demonstrate improving strength in order to improve ability to perform functional mobility such as STS, transfers and ambulation with independence. STG Duration 4 Prison Goal (LTG) Pt's gross LE MMT scores to improve to 4+/5 or better to demonstrate improving strength in order to improve ability to perform functional mobility such as STS, transfers and ambulation with independence. LTG Duration 8 Assessment Summary Assessment Tx focused on strengthening, safety with transfers and normalizing gait with use of SPC this tx. Added standing march with support of counter/ rail to HEP for increase hip flexion, noted LLE foot clearance improved during gait use of SPC. Little time spent for positioning of purse, challenged putting over both shoulders, trialed cross body with use SPC and on one side of FWW with good feedback that takes alot less stress on her shoulders and able to stand up taller. Pt requires cues for SPC Physical Therapy Plan Frequency and Duration Frequency of Treatment 2x/Week Duration of treatment (weeks) 8 Plan of Care Start Date 01/07/23 Plan of Care End Date 03/04/23 Therapeutic Interventions Therapeutic Interventions Balance Training,Gait Training ,Home Exercise Program,Joint Mobilizations,Manual Therapy, Neuromuscular Re-education, Patient/Caregiver Education, Self-Care/Home Management,Soft Tissue Mobilization,Taping, Therapeutic Activities, Therapeutic Exercises Modalities Cold Pack/Ice Massage,Electric Stimulation,Hot Packs Next Visit Focus/Plan Next Note Type Treatment Note Next Visit Plan Recheck side step, hip abd&ext for HEP. Add hip mobility and strength exercises as tolerated: morales stepping. Include gait and balance training.
--- NOTE | 2023-01-29 12:14 | PT.OTN ---
Current Diagnoses Pain in left hip (01/29/23) Fracture of unspecified part of neck of left femur, subsequent encounter for closed fracture with routine healing (01/29/23) Physical Therapy Treatment Note PT-OP-A Visit Information Start: 01/07/23 09:56 Freq: Status: Active Protocol: Document 01/29/23 10:02 AB (Rec: 01/29/23 12:13 AB [id number]) Out-Patient Physical Therapy Visit Information Visit Information Visit Type Treatment Note Visit Start Time 10:00 Visit Stop Time 10:42 Total Visit Minutes 42 Visit Number 5 PT-OP-B Current Condition Start: 01/07/23 09:56 Freq: Status: Active Protocol: Document 01/07/23 09:56 AB (Rec: 01/07/23 12:40 AB [id number]) Current Condition History of Current Condition Onset Date 11/03/22 Current Complaints Pain in left hip (4/10 at rest , 6/10) with movement. History of Current Condition The pt is s/p left ROSS ( posterior approach) on 11/03/22 secondary to fall that caused a left femoral neck fracture. Prior to surgery, the pt reports she was having left foot drop and significant imbalance leading to several falls in the span of a month. After being discharged, the pt went to SNF for about 2.5 weeks to recieved further therapy. The pt did not recieve HH PT, as her roommate does not want strangers in the home. The pt also reports a couple of falls since her last post op follow up, but states no injury occurred from these falls. Currently, she states she has difficulty walking, standing for prolonged periods due to pain. She also reports a high fear of falling due to the number of falls she has had, and often furniture surfs in her home. She is unable to use FWW in her current home due to limited space. Prior Treatments and Tests SNF after dsicharged from hospital Future Testing and Treatments Planned Next post op follow up is next week. Prior Functional Status Baseline Function- ADL's Modified Independent Baseline Function- Mobility Modified Independent Baseline Function- Gait Began using SPC due to falls Baseline Function- Work/School Retired Current Functional Impairments (Reported) Functional Limitations- ADL's Must sit to get dressed; feels unsafe when showering Functional Limitations- Mobility/Gait Uses SPC or furniture surfs for short distances. Avoids longer distances due to imbalance and pain PT-OP-C Subjective Start: 01/07/23 09:56 Freq: Status: Active Protocol: Document 01/29/23 10:02 AB (Rec: 01/29/23 12:13 AB [id number]) OP-PT Subjective Patient Comments Patient Comments Pt reports her MD is content with her progress so far and is without concerns. The pt reports she is having 6/10 pain in her hip this morning and continues to have trouble with walking and get in/out of car. PT-OP-D Balance Start: 01/07/23 09:56 Freq: Status: Active Protocol: Document 01/09/23 12:27 AB (Rec: 01/09/23 12:31 AB [id number]) Marte Balance Assessment Evaluation Sitting to Standing Ability Independent w/Hands Unsupported Stance Supervision- 2 minutes Sitting Unsupported, Feet on Floor Safely- 2 minutes Standing to Sitting Ability Assist, Control w/Hands Transfer Ability Safely, Hand Use Unsupported Stance- Eyes Closed Safely, 10 seconds Unsupported Stance- Eyes Open Independent, 1 minute Reaching Forward Standing Safely, 5 inches Pick- Up Object From Floor Supervision Look Behind Shoulder - Standing Turns Sideways Only Turning 360 Degrees Turns slowly, but safely Unsupported Stance, Alternating Feet on Assist to Prevent Fall Stair Unsupported Tandem Stance Balance Lost- Step/Stand Unilateral Leg Stance Unable,assist to not fall Total Score Marte Total Score (out of 56 points) 34 Marte Impairment Rating 20 to 39% Impaired (Score 34- 44) PT-OP-E Functional Tests Start: 01/07/23 09:56 Freq: Status: Active Protocol: Document 01/09/23 12:27 AB (Rec: 01/09/23 12:31 AB [id number]) Functional Tests Five Times Sit to Stand Test Score 24.01 sec Comments with use of BUEs Timed Up and Go (TUG) Score 41.63 sec Comments with SPC PT-OP-G Mobility & Gait Start: 01/07/23 09:56 Freq: Status: Active Protocol: Document 01/07/23 09:56 AB (Rec: 01/07/23 12:40 AB [id number]) OP Mobility Evaluation Bed Mobility Rolling IND Supine to and from Sit IND, but causes increased pain due to LBP Transfers Sit to Stand IND with use of UEs OP Gait Assessment Gait Gait Assistance Required: Standby Assistance,1 Person Assist Distance (Feet) 50 Assistive Devices Assistive Device Straight Cane Gait Deviations General Gait Pattern Antalgic,Decreased Stride Length,Decreased Feet Clearance,Narrow Based Gait, Step-to Gait Factors Limiting Gait Function Factors Limiting Gait Function Decreased Activity Tolerance, Decreased Strength,Limited Range of Motion,Pain,Poor Balance Comments Gait Comments Pt ambulates with shuffling, antalgic, and at times step to gait pattern due to bilateral hip ROM limitations. Hip IR is noted when in stance, though this may be due to weakness. PT-OP-K Range of Motion Start: 01/07/23 09:56 Freq: Status: Active Protocol: Document 01/07/23 09:56 AB (Rec: 01/07/23 12:40 AB [id number]) Hip Goniometric Range of Motion Hip Right Active Flexion w/Knee Flexed 106 Extension 0 Internal Rotation 20 External Rotation 22 Left Active Flexion w/Knee Flexed 100 Extension 0 Internal Rotation 25 External Rotation 0 PT-OP-M Strength Start: 01/07/23 09:56 Freq: Status: Active Protocol: Document 01/07/23 09:56 AB (Rec: 01/07/23 12:40 AB [id number]) Hip Strength Hip Manual Muscle Testing Right Flexion (L2) 5 Normal Extension (S1) 3 Fair Abduction 4- Good- Adduction 4- Good- External Rotation 3+ Fair+ Internal Rotation 3+ Fair+ Comments Denies pain with all MMT Left Flexion (L2) 4+ Good+ Extension (S1) 3 Fair Abduction 4- Good- Adduction 4- Good- External Rotation 3- Fair- Internal Rotation 3- Fair- Comments Denies pain with all MMT Knee Strength Knee Manual Muscle Testing Right Flexion (S2) 4- Good- Extension (L3) 4+ Good+ Comments Denies pain with all MMT Left Flexion (S2) 4- Good- Extension (L3) 4+ Good+ Comments Denies pain with all MMT Ankle/Foot Strength Ankle and Foot Manual Muscle Testing Right Dorsiflexion (L4) 4 Good Plantarflexion (S1) 4- Good- Inversion 4 Good Eversion (S1) 4 Good Comments Denies pain with all MMT Left Dorsiflexion (L4) 4 Good Plantarflexion (S1) 4- Good- Inversion 4 Good Eversion (S1) 4 Good Comments Denies pain with all MMT PT-OP-Q Treatments Start: 01/07/23 09:56 Freq: Status: Active Protocol: Document 01/29/23 10:02 AB (Rec: 01/29/23 12:13 AB [id number]) Cardio Equipment Recumbent Stepper (Sci-Fit) Duration (Minutes) 6 Therapeutic Exercises Standing Exercises Step ups Side bilateral Equipment Used 5 step Reps/Minutes 1x5, 1x10 Comments BUE support in // bars hip extension Side bilateral Resistance AROM Equipment Used BUE rail support Reps/Minutes 2x10 Comments max cues for TKE and elevated posturing, challenged maintaining posture HR TR Side bilateral Equipment Used rail support Reps/Minutes 2x10 Comments cued not wt shift back during TR- improved DF with reps marching Equipment Used facing rail Reps/Minutes 2x10 Comments cued increase LLE raise, RLE more abd alignment side stepping Side bilateral Resistance AROM Equipment Used hands hover rail> light 1 contact last lap Reps/Minutes 10 ft x3 laps Comments intermittent cues for elongated posture, LLE trail LE clearance march step PT-OP-T Assessment and Plan Start: 01/07/23 09:56 Freq: Status: Active Protocol: Document 01/29/23 10:02 AB (Rec: 01/29/23 12:13 AB [id number]) Physical Therapy Assessment Goals Six Impairment Patient Questionnaire Short Term Goal (STG) LEFS score to improve to 31/80 or better to demonstrate improving subjective report of symptoms and QOL. STG Duration 4 Group Home Goal (LTG) LEFS score to improve to 45/80 or better to demonstrate improving subjective report of symptoms and QOL. LTG Duration 8 Five Impairment Gait Short Term Goal (STG) Pt to independently ambulate 50 ft with LRAD without shuffling gait pattern to show improving gait mechanics in order to decrease risk for falls. STG Duration 4 Group Home Goal (LTG) Pt to independently ambulate 150 ft with LRAD without shuffling and antalgic gait pattern to show improving gait mechanics in order to decrease risk for falls. LTG Duration 8 Four Impairment Hip AROM Short Term Goal (STG) Pt's left hip IR AROM to improve to 30 degrees or better and right hip IR AROM to improve to 25 degrees or better to improve ability to perform functional mobility, ADLs and IADLs. STG Duration 4 Group Home Goal (LTG) Pt's left hip IR AROM to improve to 35 degrees or better and right hip IR AROM to improve to 30 degrees or better to improve ability to perform functional mobility, ADLs and IADLs. LTG Duration 8 Three Impairment Hip AROM Short Term Goal (STG) Pt's left hip ER AROM to improve to 15 degrees or better and right hip ER AROM to improve to 30 degrees or better to improve ability to perform functional mobility, ADLs and IADLs. STG Duration 4 Ui Developer With [employer] Goal (LTG) Pt's left hip ER AROM to improve to 25 degrees or better and right hip ER AROM to improve to 35 degrees or better to improve ability to perform functional mobility, ADLs and IADLs. LTG Duration 8 Two Impairment Hip AROM Short Term Goal (STG) Pt's left hip flexion AROM to improve to 105 degrees or better and right hip flexion AROM to improve to 115 degrees or better to improve ability to perform functional mobility , ADLs and IADLs. STG Duration 4 Ui Developer With [employer] Js Goal (LTG) Pt's left hip flexion AROM to improve to 115 degrees or better and right hip flexion AROM to improve to 125 degrees or better to improve ability to perform functional mobility , ADLs and IADLs. LTG Duration 8 One Impairment Strength Short Term Goal (STG) Pt's gross LE MMT scores to improve to 4/5 or better to demonstrate improving strength in order to improve ability to perform functional mobility such as STS, transfers and ambulation with independence. STG Duration 4 Ui Developer With [employer] J[employer] Goal (LTG) Pt's gross LE MMT scores to improve to 4+/5 or better to demonstrate improving strength in order to improve ability to perform functional mobility such as STS, transfers and ambulation with independence. LTG Duration 8 Assessment Summary Assessment The pt requires constant verbal cues to perform standing exercises through full available ROM. She was also educated on use of modalities at home to reduce hip pain, as well as education on the difference between pain vs soreness. She requires significant verbal and tactile cues to avoid dynamic knee valgus (L>R) when performing step ups and STS. The pt continues to benefit from skilled PT to improve her deficits and increase her level of function. Physical Therapy Plan Frequency and Duration Frequency of Treatment 2x/Week Duration of treatment (weeks) 8 Plan of Care Start Date 01/07/23 Plan of Care End Date 03/04/23 Therapeutic Interventions Therapeutic Interventions Balance Training,Gait Training ,Home Exercise Program,Joint Mobilizations,Manual Therapy, Neuromuscular Re-education, Patient/Caregiver Education, Self-Care/Home Management,Soft Tissue Mobilization,Taping, Therapeutic Activities, Therapeutic Exercises Modalities Cold Pack/Ice Massage,Electric Stimulation,Hot Packs Next Visit Focus/Plan Next Note Type Treatment Note Next Visit Plan Add hip mobility and strength exercises as tolerated: morales stepping. Include gait and balance training.
--- NOTE | 2023-01-31 11:09 | PT-OP ANOTE ---
Pt did not show for today's appt. [employer] called and left message on pt's cell voicemail regarding missed appt. Reminded NS policy, try call >24 hrs cancel appointments if needed, may acquire NS fee for today. Reminded next appt 02/05/23 at 10 am.
--- NOTE | 2023-02-12 14:20 | PT-IP ANOTE ---
Pt no showed today's appointment. This is her second no show and the pt has cancelled multiple times, therefore her case is being discharged at this time. PT called test case developer to inform the pt and also called the pt, however PT was not able to reach pt or leave a voicemail.
--- NOTE | 2023-02-12 14:23 | PT.OPDS ---
Current Diagnoses Pain in left hip (01/29/23) Fracture of unspecified part of neck of left femur, subsequent encounter for closed fracture with routine healing (01/29/23) Visit Care Team Role Provider Type Jodi Duarte DO Attending Provider Non-Staff Family Provider Primary Care Provider Referring Provider Specialty: Internal Medicine Address: [address] [place] [address], [id number] Email: Visit Number Visit Number 5 Discharge Summary PT-OP-B Current Condition Start: 01/07/23 09:56 Freq: Status: Active Protocol: Document 01/07/23 09:56 AB (Rec: 01/07/23 12:40 AB [id number]) Current Condition History of Current Condition Onset Date 11/03/22 Current Complaints Pain in left hip (4/10 at rest , 6/10) with movement. History of Current Condition The pt is s/p left ROSS ( posterior approach) on 11/03/22 secondary to fall that caused a left femoral neck fracture. Prior to surgery, the pt reports she was having left foot drop and significant imbalance leading to several falls in the span of a month. After being discharged, the pt went to SNF for about 2.5 weeks to recieved further therapy. The pt did not recieve HH PT, as her roommate does not want strangers in the home. The pt also reports a couple of falls since her last post op follow up, but states no injury occurred from these falls. Currently, she states she has difficulty walking, standing for prolonged periods due to pain. She also reports a high fear of falling due to the number of falls she has had, and often furniture surfs in her home. She is unable to use FWW in her current home due to limited space. Prior Treatments and Tests SNF after dsicharged from hospital Future Testing and Treatments Planned Next post op follow up is next week. Prior Functional Status Baseline Function- ADL's Modified Independent Baseline Function- Mobility Modified Independent Baseline Function- Gait Began using SPC due to falls Baseline Function- Work/School Retired Current Functional Impairments (Reported) Functional Limitations- ADL's Must sit to get dressed; feels unsafe when showering Functional Limitations- Mobility/Gait Uses SPC or furniture surfs for short distances. Avoids longer distances due to imbalance and pain PT-OP-C Subjective Start: 01/07/23 09:56 Freq: Status: Active Protocol: Document 01/29/23 10:02 AB (Rec: 01/29/23 12:13 AB [id number]) OP-PT Subjective Patient Comments Patient Comments Pt reports her MD is content with her progress so far and is without concerns. The pt reports she is having 6/10 pain in her hip this morning and continues to have trouble with walking and get in/out of car. PT-OP-D Balance Start: 01/07/23 09:56 Freq: Status: Active Protocol: Document 01/09/23 12:27 AB (Rec: 01/09/23 12:31 AB [id number]) Marte Balance Assessment Evaluation Sitting to Standing Ability Independent w/Hands Unsupported Stance Supervision- 2 minutes Sitting Unsupported, Feet on Floor Safely- 2 minutes Standing to Sitting Ability Assist, Control w/Hands Transfer Ability Safely, Hand Use Unsupported Stance- Eyes Closed Safely, 10 seconds Unsupported Stance- Eyes Open Independent, 1 minute Reaching Forward Standing Safely, 5 inches Pick- Up Object From Floor Supervision Look Behind Shoulder - Standing Turns Sideways Only Turning 360 Degrees Turns slowly, but safely Unsupported Stance, Alternating Feet on Assist to Prevent Fall Stair Unsupported Tandem Stance Balance Lost- Step/Stand Unilateral Leg Stance Unable,assist to not fall Total Score Marte Total Score (out of 56 points) 34 Marte Impairment Rating 20 to 39% Impaired (Score 34- 44) PT-OP-E Functional Tests Start: 01/07/23 09:56 Freq: Status: Active Protocol: Document 01/09/23 12:27 AB (Rec: 01/09/23 12:31 AB [id number]) Functional Tests Five Times Sit to Stand Test Score 24.01 sec Comments with use of BUEs Timed Up and Go (TUG) Score 41.63 sec Comments with SPC PT-OP-G Mobility & Gait Start: 01/07/23 09:56 Freq: Status: Active Protocol: Document 01/07/23 09:56 AB (Rec: 01/07/23 12:40 AB [id number]) OP Mobility Evaluation Bed Mobility Rolling IND Supine to and from Sit IND, but causes increased pain due to LBP Transfers Sit to Stand IND with use of UEs OP Gait Assessment Gait Gait Assistance Required: Standby Assistance,1 Person Assist Distance (Feet) 50 Assistive Devices Assistive Device Straight Cane Gait Deviations General Gait Pattern Antalgic,Decreased Stride Length,Decreased Feet Clearance,Narrow Based Gait, Step-to Gait Factors Limiting Gait Function Factors Limiting Gait Function Decreased Activity Tolerance, Decreased Strength,Limited Range of Motion,Pain,Poor Balance Comments Gait Comments Pt ambulates with shuffling, antalgic, and at times step to gait pattern due to bilateral hip ROM limitations. Hip IR is noted when in stance, though this may be due to weakness. PT-OP-K Range of Motion Start: 01/07/23 09:56 Freq: Status: Active Protocol: Document 01/07/23 09:56 AB (Rec: 01/07/23 12:40 AB [id number]) Hip Goniometric Range of Motion Hip Right Active Flexion w/Knee Flexed 106 Extension 0 Internal Rotation 20 External Rotation 22 Left Active Flexion w/Knee Flexed 100 Extension 0 Internal Rotation 25 External Rotation 0 PT-OP-M Strength Start: 01/07/23 09:56 Freq: Status: Active Protocol: Document 01/07/23 09:56 AB (Rec: 01/07/23 12:40 AB [id number]) Hip Strength Hip Manual Muscle Testing Right Flexion (L2) 5 Normal Extension (S1) 3 Fair Abduction 4- Good- Adduction 4- Good- External Rotation 3+ Fair+ Internal Rotation 3+ Fair+ Comments Denies pain with all MMT Left Flexion (L2) 4+ Good+ Extension (S1) 3 Fair Abduction 4- Good- Adduction 4- Good- External Rotation 3- Fair- Internal Rotation 3- Fair- Comments Denies pain with all MMT Knee Strength Knee Manual Muscle Testing Right Flexion (S2) 4- Good- Extension (L3) 4+ Good+ Comments Denies pain with all MMT Left Flexion (S2) 4- Good- Extension (L3) 4+ Good+ Comments Denies pain with all MMT Ankle/Foot Strength Ankle and Foot Manual Muscle Testing Right Dorsiflexion (L4) 4 Good Plantarflexion (S1) 4- Good- Inversion 4 Good Eversion (S1) 4 Good Comments Denies pain with all MMT Left Dorsiflexion (L4) 4 Good Plantarflexion (S1) 4- Good- Inversion 4 Good Eversion (S1) 4 Good Comments Denies pain with all MMT PT-OP-T Assessment and Plan Start: 01/07/23 09:56 Freq: Status: Active Protocol: Document 02/12/23 14:22 AB (Rec: 02/12/23 14:23 AB [id number]) Physical Therapy Plan Discharge Physical Therapy Discharge Reasons No Longer Attending PT Discharge Comments Pt has been non-compliant with appointments, as she has had multiple no shows and cancellations. Therefore, the pt is being discharged from PT .
== END 2023-02-17 15:21 | disposition home or self-care (01) ==
LOC: PHYS 10:00
PROVIDERS: Absent Provider Student in an Organized Health Care Education/Training Program; Family Provider Student in an Organized Health Care Education/Training Program; PCP Student in an Organized Health Care Education/Training Program; Referring Provider Student in an Organized Health Care Education/Training Program; Visit Provider Student in an Organized Health Care Education/Training Program
DX: S72.002D Fracture of unspecified part of neck of left femur, subsequent encounter for closed fracture with routine healing (principal); M25.552 Pain in left hip
CPT/HCPCS: 97110; 97116; 97162; 97530; 97535

== ENCOUNTER → 2023-02-25 09:47 | Outpatient (CLI) | payer MEDICARE, MEDICAID, SELFPAY ==
[2022-11-02 18:48] VITALS: BMI 21.6
--- NOTE | 2023-02-25 10:16 | DI.RAD.S_ITS ---
Bone Density Report Name: RAMON PARSONS Age: 67 Sex: Female Ethnicity: White Date of : 1955 Indication: postmenopausal; screening for osteoporosis; prior fracture; Referring Provider: EDVIN GOMEZ Study: Bone densitometry was performed. Exam Date: February 25, 2023 Accession number: [id number] Bone Density: Region BMD T-score Z-score Classification AP Spine(L1-L4) 0.838 -1.9 0.0 Osteopenia Femoral Neck (Right) 0.537 -2.8 -1.2 Osteoporosis Total Hip (Right) 0.527 -3.4 -2.1 Osteoporosis Total Forearm (Left) 0.378 -3.7 -2.0 Osteoporosis 1/3 Forearm (Left) 0.482 -3.5 -1.8 Osteoporosis UD Forearm (Left) 0.254 -3.3 -2.0 Osteoporosis World Health Organization criteria for BMD impression classify patients as: Normal (T-score at or above -1.0), Osteopenia (T-score between -1.0 and -2.5), or Osteoporosis (T-score at or below -2.5). 10-year Fracture Risk: FRAX not reported because: Some T-score for Spine Total or Hip Total or Femoral Neck at or below -2.5 Prior hip or vertebral fracture Impression: The patient has established osteoporosis, based on the Right Total Hip T-score and the existence of a prior fracture. The patient has risk factors, including: previous fracture. Discussion: HIGH RISK OF FRACTURE. BONE DENSITY IS UNDESIRABLY LOW AT ONE OR MORE SKELETAL SITES, CONSISTENT WITH POSTMENOPAUSAL OSTEOPOROSIS. This patient's lowest T-score, in a patient who has previously fractured, meets the World Health Organization's (WHO) criteria for severe osteoporosis. In untreated patients, the risk of osteoporotic fracture increases approximately two-fold for each 1.0 SD decrease in T-score. Low bone density is not the only risk factor for fracture; also consider factors such as patient's age, frailty or poor health, risk of falling, risk of injury, previous osteoporotic fracture, family history of osteoporosis, cigarette smoking, low body weight, etc. Not everyone with low bone mineral density has osteoporosis; osteomalacia and other metabolic bone disorders should also be considered. Patients who have osteoporosis should be evaluated for specific diseases and conditions (secondary causes) that may cause or contribute to bone loss. The [place] [employer]ocrinologists (AACE) and National Osteoporosis Foundation (NOF) recommend pharmacologic intervention for all postmenopausal women with a previous hip or vertebral fracture and a T-score in this range. The patient should follow a healthful lifestyle (good nutrition with adequate calcium and vitamin D, and appropriate weight-bearing exercise). Follow-Up: Consider a repeat BMD and Vertebral Fracture Assessment (VFA) exam in 2 years or sooner if medically necessary, to reassess this patient's status. Reported by: BLU MATA MD on 02/25/2023 10:16:00 AM.
== END ==
PROVIDERS: Family Provider Student in an Organized Health Care Education/Training Program; PCP Student in an Organized Health Care Education/Training Program; Referring Provider Orthopaedic Surgery Foot and Ankle Surgery; Visit Provider Orthopaedic Surgery Foot and Ankle Surgery
DX: Z78.0 Asymptomatic menopausal state (principal); M80.052D Age-related osteoporosis with current pathological fracture, left femur, subsequent encounter for fracture with routine healing; M85.89 Other specified disorders of bone density and structure, multiple sites
CPT/HCPCS: 77080; 77081